=== PATIENT | male | born 1945 | race Caucasian/White ===

== ENCOUNTER → 2018-05-24 14:43 | Outpatient (CLI) | payer MEDICARE, SELFPAY ==
[2018-05-24 19:15] LABS: BUN Creatinine Ratio 22.5 (6-22); Blood Urea Nitrogen 18 mg/dL (9-20); Estimated Glomerular Filt Rate > 60.0 mL/min (>60)
== END ==
PROVIDERS: PCP Internal Medicine; Visit Provider Internal Medicine
DX: I10 Essential (primary) hypertension (principal)
CPT/HCPCS: 36415; 82565; 84520

== ENCOUNTER → 2018-05-25 17:32 | Outpatient (CLI) | payer MEDICARE, SELFPAY ==
--- NOTE | 2018-05-25 | DI.MRI.S_ITS ---
PROCEDURE: MR HEAD/BRAIN WO/W CON INDICATIONS: schwannomatosis TECHNIQUE: Noncontrast axial T1 spin echo, axial T2 fast spin echo, sagittal and axial FLAIR, coronal T2 fast spin echo, axial gradient echo, axial diffusion and ADC through the brain. After the administration of contrast, axial and coronal 3D VIBE or T1 spin echo with fat saturation through the brain. COMPARISON: [facility], MR, BRAIN (IAC) W&WO CONTRAST, 04/29/2016, 12:23. FINDINGS: Image quality: Excellent. CSF Spaces: Basal cisterns are patent. No extra-axial fluid collections. Ventricles are normal in size and shape. Brain: There is a 1.0 x 1.3 x 0.7 cm enhancing mass involving the left internal auditory canal and the left cerebellar pontine angle. No abnormal masses or abnormal postcontrast enhancement identified in the right internal auditory canal or the right cerebellopontine angle. No midline shift. No intracranial bleeds. No abnormal intracranial enhancement. The brainstem appears normal. Diffusion-weighted images demonstrate no acute ischemic insults. No areas of encephalomalacia. No GRE weighted abnormalities of the brain parenchyma. Mild, diffuse prominence of CSF space. Punctate and confluent areas of increased T2 signal noted in the periventricular and subcortical white matter tracts compatible with mild to moderate chronic microvascular ischemic changes. Normal intravascular flow voids are present. Skull and face: Calvarial marrow is normal in signal. Orbits appear normal. Sinuses: Sinuses and mastoids appear clear. IMPRESSION: 1. 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 The lesion is not significantly changed in size and contour compared to 04/29/2016. 2. Mild, diffuse cerebral volume loss. 3. Mild to moderate periventricular and subcortical white matter chronic microvascular ischemic changes. Dictated by: Lou Barahona MD, PhD on 05/26/2018 at 9:56 Approved by: Lou Barahona MD, PhD on 05/26/2018 at 10:08
== END ==
PROVIDERS: PCP Internal Medicine; Visit Provider Internal Medicine
DX: Q85.03 Schwannomatosis (principal)
CPT/HCPCS: 70553; A9579

== ENCOUNTER → 2018-05-30 08:49 | Outpatient (CLI) | payer MEDICARE, SELFPAY ==
[2018-05-30 11:25] LABS: Alanine Aminotransferase 37 IU/L (21-72); Albumin 4.2 g/dL (3.5-5.0); Albumin Globulin Ratio 1.4 (1.0-2.8); Alkaline Phosphatase 65 U/L (38-126); Aspartate Aminotransferase 25 IU/L (17-59); Bilirubin Total 0.8 mg/dL (0.2-1.3); Blood Urea Nitrogen 16 mg/dL (9-20); Calcium 9.1 mg/dL (8.4-10.2); Carbon Dioxide 33 mmol/L (22-32); Chloride 97 mmol/L (98-107); Cholesterol 135 mg/dL (140-199); Estimated Glomerular Filt Rate > 60.0 mL/min (>60); Globulin 2.9 g/dL (1.7-4.1); Glucose 114 mg/dL (80-110); HDL Cholesterol 43 mg/dL (40-60); HEMOLYSIS < 15 (0-50); LDL Cholesterol Calculated 69 mg/dL (<100); Potassium 4.2 mmol/L (3.4-5.1); Sodium 142 mmol/L (137-145); Total Protein 7.1 g/dL (6.3-8.2); Triglycerides 116 mg/dL (35-150)
[2018-05-30 11:51] LABS: Prostate Specific Antigen Scrn 0.277 ng/mL (0.1-4.0)
== END ==
PROVIDERS: PCP Internal Medicine; Visit Provider Internal Medicine
DX: Z00.00 Encounter for general adult medical examination without abnormal findings (principal); R73.01 Impaired fasting glucose; I10 Essential (primary) hypertension; E66.9 Obesity, unspecified
CPT/HCPCS: 36415; 80053; 80061; G0103

== ENCOUNTER → 2019-06-02 12:49 | Outpatient (CLI) | payer MEDICARE, SELFPAY ==
[2019-06-02 13:23] LABS: Add Manual Diff / Slide Review NO; Basophils Absolute Auto 0 /uL (0-100); Basophils Percent Auto 0.3 % (0-2); Eosinophils Absolute Auto 300 /uL (0-450); Eosinophils Percent Auto 2.2 % (2-4); Hematocrit 44.3 % (41-53); Hemoglobin 14.9 g/dL (13.5-17.5); Lymphocytes Absolute Auto 2400 /uL (1100-4500); Lymphocytes Percent Auto 18.5 % (25-40); Mean Corpuscular HGB Conc 33.6 % (30-36); Mean Corpuscular Hemoglobin 29.8 PG (26-34); Mean Corpuscular Volume 88.7 fL (80-100); Monocytes Absolute Auto 1300 /uL (0-900); Monocytes Percent Auto 9.9 % (3-14); Neutrophils Absolute Auto 9000 /uL (1500-7000); Neutrophils Percent Auto 69.1 % (50-75); Platelet Count 336 X10^3/uL (150-400); Red Blood Cell Count 4.99 X10^6/uL (4.5-5.9); Red Cell Distribution Width 13.6 % (11.6-14.8); White Blood Cell Count 13.1 X10^3/uL (4.5-11.0)
[2019-06-02 14:31] LABS: Alanine Aminotransferase 29 IU/L (21-72); Albumin 4.6 g/dL (3.5-5.0); Albumin Globulin Ratio 1.3 (1.0-2.8); Alkaline Phosphatase 65 U/L (38-126); Aspartate Aminotransferase 31 IU/L (17-59); BUN Creatinine Ratio 18.9 (6-22); Bilirubin Total 0.8 mg/dL (0.2-1.3); Blood Urea Nitrogen 17 mg/dL (9-20); Calcium 9.6 mg/dL (8.4-10.2); Carbon Dioxide 35 mmol/L (22-32); Chloride 95 mmol/L (98-107); Estimated Glomerular Filt Rate > 60.0 mL/min (>60); Globulin 3.5 g/dL (1.7-4.1); Glucose 101 mg/dL (80-110); HEMOLYSIS < 15 (0-50); Potassium 4.4 mmol/L (3.4-5.1); Sodium 139 mmol/L (137-145); Total Protein 8.1 g/dL (6.3-8.2)
[2019-06-02 14:42] LABS: TSH w/ Reflex to FT4 1.23 uIU/mL (0.47-4.68)
== END ==
PROVIDERS: PCP Internal Medicine; Visit Provider Internal Medicine
DX: R53.82 Chronic fatigue, unspecified (principal)
CPT/HCPCS: 36415; 80053; 84443; 85025

== ENCOUNTER → 2019-07-20 12:17 | Oncology outpatient (ONC) | payer MEDICARE, SELFPAY ==
[2019-07-05 10:20] VITALS: BP 140/84; PULSE 78; RESP 16; TEMP 36.2; O2SAT 93
--- NOTE | 2019-07-05 10:35 | P.CONONC_ITS ---
History of Present Illness - Data of Consult Consult date: 07/05/19 Primary Care Provider: Randall Russell MD - Consult Narrative Narrative: Diagnosis: Chronic leukocytosis History of present illness: Don Roberts is a 73 year old male who is referred for further evaluation of chronically elevated white count. The patient reports that he has had a slightly high white count that has been present for many years. It has not been causing any symptoms for him. He has not been bothered by a frequent or recurrent infections. He denies any fevers chills or night sweats. He has not noticed any adenopathy. His weight has been stable. No GI complaints. His most recent CBC showed a white count of 13.1 a with primarily neutrophils. There is also slight increase in his monocytes. Hemoglobin was 14.9 hematocrit 44.3 platelets were 336,000. In 2017, his white count had been 12.4. In 2016 it had been 14.0. He does not smoke. He has not had a splenectomy. He has not been on any steroids. His family history is notable for a brother who had a low white count for many years but it has since resolved. There is no family history of other blood dyscrasias. There is no family history of malignancy. Social history: He is retired. He worked in the computer industry and in finance. He does not smoke. He has rare alcohol use. His past medical history is notable for hypertension and elevated cholesterol. He has had prior knee surgery and appendectomy. He does have a history of a an acoustic neuroma that has been followed without any treatment. CC: Maciej Saeed MD Home Medications and Allergies Home Medications Medication Instructions Recorded Confirmed Type amlodipine 5 mg PO BID 07/05/19 07/05/19 History aspirin 81 mg PO DAILY 07/05/19 07/05/19 History atorvastatin 20 mg PO DAILY 07/05/19 07/05/19 History cholecalciferol (vitamin D3) 5,000 unit PO DAILY 07/05/19 07/05/19 History [Vitamin D3] multivitamin tab 07/05/19 History potassium chloride 20 meq PO DAILY 07/05/19 07/05/19 History Allergies Allergy/AdvReac Type Severity Reaction Status Date / Time Penicillins [PENICILLINS] Allergy Unknown RASH Unverified 11/24/17 12:35 Review of Systems - Patient Self-Reported Symptoms SR Skin issues: Skin rash or itching SR Genitourinary issues: Frequent urination Constitutional: normal activity level, no weight loss Ears, nose, mouth, throat: decreased hearing Cardiovascular: no chest pain, no palpitations, no dyspnea on exertion Respiratory: no shortness of breath Gastrointestinal: no change in appetite, no abdominal pain Integumentary: rash, eczema Hematologic/Lymphatic: no anemia, no enlarged lymph nodes Exam Vital signs: Vital Signs Temp Pulse Resp BP Pulse Ox 07/05/19 10:20 97.1 F L 78 16 140/84 93 Intake and Output 07/04/19 07/05/19 07/05/19 23:59 07:59 15:59 Other: Weight 124.3 kg Patient Weight 07/05/19 23:59 Weight 124.3 kg - Constitutional positive no acute distress, positive obese - Routine HEENT Exam Head: Present: normocephalic, atraumatic Eye: Present: EOMI, PERRL. Absent: conjunctival icterus, scleral injection ENT: Present: mucous membranes moist, oropharynx clear, dentition normal - Routine Neck Exam Present: supple. Absent: lymphadenopathy, thyromegaly - Routine Chest/Breast/Axilla Exam Axillae: Absent: lymphadenopathy - Routine Respiratory Exam Present: Clear to auscultation bilaterally. Absent: rales, wheezes - Routine Cardiovascular Exam Present: RRR, S1, S2. Absent: murmur - Routine Abdominal Exam Present: soft, normoactive bowel sounds. Absent: tenderness, organomegaly, mass - Routine Extremities Exam Absent: cyanosis, clubbing, edema - Routine Back/Spine Exam Back/Spine: Absent: vertebral tenderness - Routine Skin Exam Present: rash. Absent: intact, petechiae, ecchymosis Comments: He did have some eczema on his upper extremities. He had seborrheic keratoses on his back. - Routine Neurological Exam Present: alert, oriented X3 - Routine Psychiatric Exam Present: normal affect, normal thought process Assessment and Plan (1) Leukocytosis, unspecified Current visit: Yes Status: Acute 73-year-old man with mild leukocytosis. This has been present for at least 2-3 years. He does not have any symptoms related to this and it does not appear to be progressive. He is not on any medications that are likely to elevate his white count. He does not have a history of splenectomy is not a smoker. It is possible that this could represent chronic phase CML but I think unlikely. It is possible this may just be his usual white count. I think it will be imp ortant to check for bcr/ABL. Will also repeat a CBC today. I do not think that any further investigation is likely to be helpful. He will return to clinic here in about 2 weeks for follow-up.
--- NOTE | 2019-07-10 10:47 | ONC.SCHED ---
No prior auth needed for BCR ABL conf#[id number] spoke with Solomon Coffman did the prior auth call.
[2019-07-20 13:04] LABS: Add Manual Diff / Slide Review NO; Basophils Absolute Auto 0 /uL (0-100); Basophils Percent Auto 0.4 % (0-2); Eosinophils Absolute Auto 300 /uL (0-450); Eosinophils Percent Auto 2.6 % (2-4); Hematocrit 47.5 % (41-53); Hemoglobin 15.9 g/dL (13.5-17.5); Lymphocytes Absolute Auto 2200 /uL (1100-4500); Lymphocytes Percent Auto 17.5 % (25-40); Mean Corpuscular HGB Conc 33.4 % (30-36); Mean Corpuscular Hemoglobin 30.2 PG (26-34); Mean Corpuscular Volume 90.3 fL (80-100); Monocytes Absolute Auto 600 /uL (0-900); Monocytes Percent Auto 5.1 % (3-14); Neutrophils Absolute Auto 9300 /uL (1500-7000); Neutrophils Percent Auto 74.4 % (50-75); Platelet Count 347 X10^3/uL (150-400); Red Blood Cell Count 5.26 X10^6/uL (4.5-5.9); Red Cell Distribution Width 13.3 % (11.6-14.8); White Blood Cell Count 12.5 X10^3/uL (4.5-11.0)
[2019-07-24 12:00] LABS: Specimen Source WHOLE BLOOD EDTA
--- NOTE | 2019-08-01 11:16 | ONC.SCHED ---
Pt. called and asked to reschedule his appt from today because he got called into work for an emergency. He rescheduled for August 23 w/ Christophe.
== END ==
PROVIDERS: PCP Internal Medicine
DX: D72.829 Elevated white blood cell count, unspecified (principal); D33.3 Benign neoplasm of cranial nerves; I10 Essential (primary) hypertension; E78.00 Pure hypercholesterolemia, unspecified
CPT/HCPCS: 36415; 81207; 85025; 99204; 99214

== ENCOUNTER → 2020-05-06 09:18 | Outpatient (CLI) | payer MEDICARE, SELFPAY ==
[2020-05-06 10:17] LABS: Hemoglobin A1C% w Est Avg Glu 7.3 % (4.0-6.0)
[2020-05-06 10:26] LABS: Alanine Aminotransferase 27 IU/L (<50); Albumin 4.1 g/dL (3.5-5.0); Albumin Globulin Ratio 1.2 (1.0-2.8); Alkaline Phosphatase 73 U/L (38-126); Aspartate Aminotransferase 28 IU/L (17-59); BUN Creatinine Ratio 17.9 (6-22); Blood Urea Nitrogen 15 mg/dL (9-20); Calcium 8.9 mg/dL (8.4-10.2); Carbon Dioxide 32 mmol/L (22-32); Chloride 98 mmol/L (98-107); Cholesterol 128 mg/dL (140-199); Estimated Glomerular Filt Rate > 60.0 mL/min (>60); Globulin 3.4 g/dL (1.7-4.1); Glucose 148 mg/dL (80-110); HDL Cholesterol 34 mg/dL (40-60); HEMOLYSIS 17 (0-50); LDL Cholesterol Calculated 71 mg/dL (<100); Potassium 3.7 mmol/L (3.4-5.1); Sodium 139 mmol/L (137-145); Total Protein 7.5 g/dL (6.3-8.2); Triglycerides 115 mg/dL (35-150)
== END ==
PROVIDERS: PCP Internal Medicine; Referring Provider Internal Medicine; Visit Provider Internal Medicine
DX: E11.9 Type 2 diabetes mellitus without complications (principal)
CPT/HCPCS: 36415; 80053; 80061; 83036

== ENCOUNTER → 2021-03-19 11:12 | Outpatient (CLI) | payer MEDICARE, SELFPAY | PROVIDERS: PCP Internal Medicine; Referring Provider Internal Medicine; Visit Provider Internal Medicine | DX: Q85.03 Schwannomatosis (principal); Z53.20 Procedure and treatment not carried out because of patient's decision for unspecified reasons ==

== ENCOUNTER → 2021-11-14 11:11 | Outpatient (CLI) | payer OTHER, SELFPAY ==
[2021-11-14 11:56] LABS: Hemoglobin A1C% w Est Avg Glu 6.9 % (4.0-6.0)
[2021-11-14 11:59] LABS: Alanine Aminotransferase 28 IU/L (<50); Albumin 4.3 g/dL (3.5-5.0); Albumin Globulin Ratio 1.3 (1.0-2.8); Alkaline Phosphatase 68 U/L (38-126); Aspartate Aminotransferase 28 IU/L (17-59); BUN Creatinine Ratio 14.1 (6-22); Blood Urea Nitrogen 12 mg/dL (9-20); Calcium 8.9 mg/dL (8.4-10.2); Carbon Dioxide 33 mmol/L (22-32); Chloride 98 mmol/L (98-107); Cholesterol 123 mg/dL (140-199); Estimated Glomerular Filt Rate > 60.0 mL/min (>60); Globulin 3.2 g/dL (1.7-4.1); Glucose 138 mg/dL (80-110); HDL Cholesterol 38 mg/dL (40-60); HEMOLYSIS < 15 (0-50); LDL Cholesterol Calculated 66 mg/dL (<100); Potassium 3.6 mmol/L (3.4-5.1); Sodium 138 mmol/L (137-145); Total Protein 7.5 g/dL (6.3-8.2); Triglycerides 97 mg/dL (35-150)
[2021-11-14 12:04] LABS: Add Manual Diff / Slide Review NO; Basophils Absolute Auto 100 /uL (0-100); Basophils Percent Auto 0.6 % (0-2); Eosinophils Absolute Auto 200 /uL (0-450); Eosinophils Percent Auto 1.7 % (2-4); Hematocrit 43.9 % (41-53); Lymphocytes Absolute Auto 2300 /uL (1100-4500); Lymphocytes Percent Auto 18.3 % (25-40); Mean Corpuscular HGB Conc 34.2 % (30-36); Mean Corpuscular Hemoglobin 30.1 PG (26-34); Mean Corpuscular Volume 87.9 fL (80-100); Monocytes Absolute Auto 800 /uL (0-900); Monocytes Percent Auto 6.7 % (3-14); Neutrophils Absolute Auto 9100 /uL (1500-7000); Neutrophils Percent Auto 72.7 % (50-75); Platelet Count 294 X10^3/uL (150-400); Red Cell Distribution Width 13.4 % (11.6-14.8); White Blood Cell Count 12.4 X10^3/uL (4.5-11.0)
[2021-11-14 12:38] LABS: TSH w/ Reflex to FT4 0.98 uIU/mL (0.47-4.68)
== END ==
PROVIDERS: PCP Internal Medicine; Referring Provider Internal Medicine; Visit Provider Internal Medicine
DX: E78.2 Mixed hyperlipidemia (principal); E74.39 Other disorders of intestinal carbohydrate absorption; I10 Essential (primary) hypertension
CPT/HCPCS: 36415; 80053; 80061; 83036; 84443; 85025

== ENCOUNTER → 2022-01-08 10:32 | Outpatient (CLI) | payer OTHER, SELFPAY ==
--- NOTE | 2022-01-08 10:33 | DI.US.S_ITS ---
PROCEDURE: US SCROTUM INDICATIONS: Left scrotal mass TECHNIQUE: Real-time scanning was performed of the scrotum and testicles, with image documentation. Color and pulse Doppler interrogation was performed of both testicles. COMPARISON: None. FINDINGS: Right: Testicle is normal in size at 4.6 x 3.0 x 2.7 cm, and homogenous in echotexture. Epididymis is normal in overall size and morphology. Small hydrocele. No varicocele. Overlying scrotal skin is normal in thickness. Left: Testicle is normal in size at 4.7 x 3.5 x 2.7 cm, and homogeneous in echotexture. Epididymis is not well seen. Large complex hydrocele. No varicocele. Overlying scrotal skin is normal in thickness. Doppler: Color and pulse Doppler demonstrate normal and symmetric arterial flow in both testicles. IMPRESSION: 1. Normal appearance of the testicles bilaterally. 2. Large complex left hydrocele which contains internal debris and pyocele cannot be excluded. Recommend clinical correlation and follow-up. 3. Small right hydrocele. Dictated by: Dell Ashton [facility] Interpreted: Justin Archer MD on 01/08/2022 at 12:14 Transcribed by: SERJIO on 01/08/2022 at 12:15 Approved by: Justin Archer M.D. on 01/08/2022 at 16:51
== END ==
PROVIDERS: PCP Internal Medicine; Referring Provider Internal Medicine; Visit Provider Internal Medicine
DX: N43.3 Hydrocele, unspecified (principal)
CPT/HCPCS: 76870

== ENCOUNTER → 2022-03-11 10:56 | Outpatient (CLI) | payer OTHER, SELFPAY ==
[2022-03-11 13:15] LABS: Prostate Specific Antigen 0.303 ng/mL (0.10-4.00)
== END ==
PROVIDERS: PCP Internal Medicine; Referring Provider Specialist; Visit Provider Specialist
DX: R97.20 Elevated prostate specific antigen [PSA] (principal)
CPT/HCPCS: 36415; 84153

== ENCOUNTER → 2022-12-08 10:58 | Outpatient (CLI) | payer OTHER, SELFPAY ==
[2022-12-08 12:52] LABS: Add Manual Diff / Slide Review NO; Basophils Absolute Auto 0 /uL (0-100); Basophils Percent Auto 0.2 % (0-2); Eosinophils Absolute Auto 400 /uL (0-450); Eosinophils Percent Auto 3.2 % (2-4); Hematocrit 43.5 % (41-53); Hemoglobin 14.7 g/dL (13.5-17.5); Lymphocytes Absolute Auto 2500 /uL (1100-4500); Lymphocytes Percent Auto 21.1 % (25-40); Mean Corpuscular HGB Conc 33.8 % (30-36); Mean Corpuscular Volume 88.9 fL (80-100); Monocytes Absolute Auto 900 /uL (0-900); Monocytes Percent Auto 7.5 % (3-14); Neutrophils Absolute Auto 7900 /uL (1500-7000); Platelet Count 297 X10^3/uL (150-400); Red Blood Cell Count 4.89 X10^6/uL (4.5-5.9); Red Cell Distribution Width 13.8 % (11.6-14.8); White Blood Cell Count 11.6 X10^3/uL (4.5-11.0)
[2022-12-08 13:23] LABS: Aspartate Aminotransferase 27 IU/L (17-59); BUN Creatinine Ratio 19.3 (6-22); Blood Urea Nitrogen 17 mg/dL (9-20); Calcium 8.7 mg/dL (8.4-10.2); Carbon Dioxide 34 mmol/L (22-32); Chloride 98 mmol/L (98-107); Cholesterol 216 mg/dL (140-199); Estimated Glomerular Filt Rate > 60 mL/min (>60); Glucose 114 mg/dL (80-110); HDL Cholesterol 41 mg/dL (40-60); HEMOLYSIS < 15 (0-50); LDL Cholesterol Calculated 147 mg/dL (<100); Potassium 3.9 mmol/L (3.4-5.1); Sodium 139 mmol/L (137-145); Triglycerides 138 mg/dL (35-150)
[2022-12-08 15:15] LABS: Creatinine Urine Random 178.9 mg/dL
[2022-12-08 15:22] LABS: Microalbumi Creatinin Ratio Ur 7.8 ug/mg CR (<30); Microalbumin Urine Random 1.4 mg/dL (0-1.6)
[2022-12-08 17:49] LABS: Testosterone 168 ng/dL (71.8-623)
[2022-12-09 07:36] LABS: x Labcorp Estim. Avg Glu (eAG) 143 mg/dL (.); x Labcorp Hemoglobin A1c 6.6 % (4.8-5.6)
== END ==
PROVIDERS: PCP Internal Medicine; Referring Provider Internal Medicine; Visit Provider Internal Medicine
DX: E11.69 Type 2 diabetes mellitus with other specified complication (principal); E78.2 Mixed hyperlipidemia; E78.5 Hyperlipidemia, unspecified; I10 Essential (primary) hypertension; D72.829 Elevated white blood cell count, unspecified; R79.89 Other specified abnormal findings of blood chemistry
CPT/HCPCS: 36415; 80048; 80061; 82043; 82570; 83036; 84403; 84450; 85025

== ENCOUNTER 2023-11-07 15:45 | Emergency (ER) | payer OTHER, SELFPAY ==
[2023-11-07 15:47] VITALS: BP 175/93; PULSE 99; RESP 18; TEMP 36.8; O2SAT 95; BMI 39.9
--- NOTE | 2023-11-07 15:58 | ED_ITS ---
HPI - Epistaxis General Chief complaint: Nasal Problem Stated complaint: Nose Bleed Time Seen by Provider: 11/07/23 15:56 Source: patient Mode of arrival: Ambulatory History of Present Illness HPI Narrative: 78-year-old male with history of hypertension, hyperlipidemia, diabetes presents by private vehicle from home for 1 hour of nosebleed. Patient reports he was washing his face and rubbing his nose when bleeding started. He states that he has had history of nosebleeds 1 year ago that required cautery in the emergency department. Blood began to spontaneously come out of his left nostril and could not be stemmed. He tried to stop the flow with tissue paper in his nose but he continued to bleed and so he decided to come to the emergency department for evaluation. Took several baby aspirin this morning, denies use of other blood thinners. Related Data Home Medications Medication Instructions Recorded Confirmed aspirin 81 mg chewable tablet 81 mg PO DAILY 07/05/19 09/29/23 multivitamin 1 tab PO DAILY 11/12/21 09/29/23 zinc 50 mg tablet 50 mg PO DAILY 11/12/21 09/29/23 mecobalamin (vitamin B12) 5,000 tab PO 07/12/23 09/29/23 mcg disintegrating tablet vitamin E (dl, acetate) 180 mg 180 mg PO DAILY 07/12/23 09/29/23 (400 unit) capsule Previous Rx's Medication Instructions Recorded atorvastatin 20 mg tablet 20 mg PO DAILY #90 tabs 12/23/22 losartan 50 mg tablet 50 mg PO DAILY #90 tabs 07/12/23 alfuzosin 10 mg tablet,extended 10 mg PO DAILY #90 tabs 09/29/23 release 24 hr (Uroxatral) Allergies Allergy/AdvReac Type Severity Reaction Status Date / Time No Known Drug Allergies Allergy Verified 11/07/23 15:47 Review of Systems Review of Systems Narrative: Negative except as noted above Patient History Medical History BPH w urinary obs/LUTS Left hydrocele Hypertension Arthritis Hearing loss Mumps Measles DM type 2 with diabetic dyslipidemia Venous insufficiency Severe obesity (BMI >= 40) Psoriasis Left acoustic neuroma Mixed hyperlipidemia Surgical History History of hydrocelectomy Hx of circumcision Hx of appendectomy Family History Father Hypertension Mother Hypertension Brother Hypertension Social History marital status: Smoking Status: Never smoker alcohol intake: never substance use type: does not use caffeine: Yes Smoking Status: Never smoker Exam Initial Vital Signs Initial Vital Signs: Vital Signs Temperature 98.2 F 11/07/23 15:47 Pulse Rate 99 H 11/07/23 15:47 Respiratory Rate 18 11/07/23 15:47 Blood Pressure 175/93 H 11/07/23 15:47 Pulse Oximetry 95 11/07/23 15:47 Oxygen Delivery Method Room Air 11/07/23 15:47 Const: Awake, alert, no acute distress, nontoxic appearing HEENT: Stigmata of bleeding left nostril, dried blood in right naris Skin: Warm, Dry, intact, no rashes Neuro: AO x3, CN II-XII grossly intact, moves all extremities Course Orders Ordered: Discontinued Medications Oxymetazoline HCl (Oxymetazoline Nasal [place] 30 Ml) 2 sprays NASAL NOW ONE Stop: 11/07/23 15:59 Last Admin: 11/07/23 16:04 Dose: 2 sprays Documented By: MICHEL Silver Nitrate/Potassium Nitrate (Silver Nitrate Stick) 2 each TOP NOW ONE Stop: 11/07/23 15:59 Last Admin: 11/07/23 16:04 Dose: 2 each Documented By: MICHEL Vital Signs Vital signs: Vital Signs - 8 hr 11/07/23 15:47 Temperature 98.2 F Pulse Rate 99 H Respiratory Rate 18 Blood Pressure 175/93 H Pulse Oximetry 95 Oxygen Delivery Method Room Air MDM - Epistaxis Differential Diagnosis Differential diagnosis: Likely nasal bone fracture, anterior epistaxis and posterior epistaxis MDM Narrative Medical decision making narrative: Well-appearing patient with epistaxis. Patient was instructed to thoroughly blow his nose to remove all of the clots and Afrin was instilled into each nostril and clamps applied. After 20 minutes the clamps were removed and there did not appear to be any stigmata of bleeding. Of note, patient was hypertensive on arrival, he states that he usually does not take his medication until nighttime. He states that over the last several weeks he has noticed that his blood pressure has been climbing higher and higher despite being compliant with his medications. Patient takes 50 mg daily of losartan, he was informed that he may increase this to 75 or even 100 mg of losartan for improved blood pressure control. Patient observed for some time to ensure that he has no further bleeding. Patient did not have any further episodes of epistaxis while in the emergency department. At 5:00 p.m. patient stated that he was ready to go. He was noted again to be hypertensive and his evening dose of losartan was given to him. Patient was again counseled on the medication changes that he may make to his blood pressure medication regimen and instructed to follow up with primary care physician. Afrin and nose clamp given to patient at discharge. ED return precautions discussed at bedside. Patient expressed understanding of the plan and is in agreement at this time. All questions answered at the time of discharge. Discharge Plan Departure Patient Disposition: Home Clinical Impression: Epistaxis Hypertension Qualifiers: Hypertension type: unspecified Qualified Code(s): I10 - Essential (primary) hypertension Instructions: DI for Nosebleed Activity Restrictions/Additional Instructions: Use a spray of Afrin tonight before bed and tomorrow after waking up. Do not use Afrin for more than 2 days to prevent dependence on Afrin. Avoid manipulating, touching, blowing your nose for at least the next 24 hours. If your nose begins to bleed use the clamps and Afrin. If this does not improve the bleeding then returned to the emergency department. You told me that your blood pressure has been higher than usual over the last several weeks. I recommend increasing your losartan 50 mg to 100 mg daily. Please follow up with your primary care physician for further management of your blood pressure. Prescriptions: No Action atorvastatin 20 mg tablet 20 mg PO DAILY Qty: 90 3RF mecobalamin (vitamin B12) 5,000 mcg tablet,disintegrating PO vitamin E (dl, acetate) 180 mg (400 unit) capsule 180 mg PO DAILY losartan 50 mg tablet 50 mg PO DAILY Qty: 90 3RF zinc 50 mg tablet 50 mg PO DAILY aspirin 81 mg Tablet,Chewable 81 mg PO DAILY multivitamin Tablet 1 tab PO DAILY alfuzosin [Uroxatral] 10 mg tablet extended release 24 hr 10 mg PO DAILY Qty: 90 3RF Rx Instructions: administer after the same meal each day Referrals: Kevin Islas MD [Primary Care Provider] - Stand Alone Forms: Patient Portal/API
[2023-11-07] MEDS: OXYMETAZOLINE NASAL SPRAY 30 ML 2 SPRAYS NASAL (16:04)
[2023-11-07] MEDS: SILVER NITRATE STICK 2 EACH TOP (16:04)
[2023-11-07 17:34] VITALS: BP 214/87; PULSE 90; RESP 16; O2SAT 97
[2023-11-07 17:35] VITALS: BP 214/87; PULSE 90
[2023-11-07] MEDS: LOSARTAN 50 MG TABLET PO (17:35)
== END 2023-11-07 17:51 | disposition home or self-care (01) ==
PROVIDERS: Emergency Provider Emergency Medicine; PCP Internal Medicine
DX: R04.0 Epistaxis (principal); I10 Essential (primary) hypertension
CPT/HCPCS: 17250; 99283

== ENCOUNTER → 2023-11-24 11:21 | Outpatient (CLI) | payer OTHER, SELFPAY ==
[2023-11-24 13:04] LABS: Aspartate Aminotransferase 21 IU/L (17-59); BUN Creatinine Ratio 15.7 (6-22); Blood Urea Nitrogen 13 mg/dL (9-20); Calcium 9.2 mg/dL (8.4-10.2); Carbon Dioxide 34 mmol/L (22-32); Chloride 101 mmol/L (98-107); Cholesterol 124 mg/dL (140-199); Estimated Glomerular Filt Rate > 60 mL/min (>60); Glucose 130 mg/dL (80-110); HDL Cholesterol 44 mg/dL (40-60); HEMOLYSIS < 15 (0-50); LDL Cholesterol Calculated 58 mg/dL (<100); Potassium 4.1 mmol/L (3.4-5.1); Sodium 140 mmol/L (137-145); Triglycerides 110 mg/dL (35-150)
== END ==
PROVIDERS: PCP Internal Medicine; Referring Provider Internal Medicine; Visit Provider Internal Medicine
DX: E11.69 Type 2 diabetes mellitus with other specified complication (principal); E78.5 Hyperlipidemia, unspecified; I10 Essential (primary) hypertension; E78.2 Mixed hyperlipidemia
CPT/HCPCS: 36415; 80048; 80061; 83036; 84450

== ENCOUNTER → 2023-12-03 11:11 | Outpatient (CLI) | payer OTHER, SELFPAY ==
[2023-12-03 15:29] LABS: Creatinine Urine Random 109.4 mg/dL
[2023-12-03 15:33] LABS: Microalbumi Creatinin Ratio Ur 7.3 ug/mg CR (<30); Microalbumin Urine Random 0.8 mg/dL (0-1.6)
[2023-12-06 20:34] LABS: Fecal Immunochemical Test Positive (Negative)
== END ==
PROVIDERS: PCP Internal Medicine; Referring Provider Internal Medicine; Visit Provider Internal Medicine
DX: E11.69 Type 2 diabetes mellitus with other specified complication (principal); E78.5 Hyperlipidemia, unspecified; I10 Essential (primary) hypertension; E78.2 Mixed hyperlipidemia; Z12.11 Encounter for screening for malignant neoplasm of colon
CPT/HCPCS: 82043; 82274; 82570

== ENCOUNTER 2023-12-10 12:23 | Day surgery (SDC) | payer OTHER, SELFPAY ==
[2023-12-02 14:42] VITALS: BMI 40.5
[2023-12-10] VITALS (7 sets, daily range): BP systolic 115–168; BP diastolic 54–82; PULSE 78–85; RESP 13–19; TEMP 36.2–36.6; O2SAT 91–96; BMI 39.5
--- NOTE | 2023-12-10 | PATH_ITS ---
[facility] Accession Number: [id number] No. of containers..01 Tissue . 01 Material submitted: . body - LEFT HYDROCELE AND SABINO . 01 Diagnosis: LEFT HYDROCELE AND SABINO: 1. Benign mesothelial-lined fibrous tissue consistent with hydrocele. 2. Additional hard tissue fragment consistent with scrotolith on macroscopic examination. 3. No neoplasm identified. [facility] 12/17/2023905 Local . 01 Electronically signed: . Brandon Black MD, Pathologist NPI- [id number] . 01 Gross description: . Received in formalin with two identifiers and left hydrocele and sabino, is a epps semitranslucent membranous soft tissue fragment measuring 6.1 x 4.5 x 0.3 cm with no lesions identified. Also in the container is a epps hard smooth tissue fragment consistent with scrotolith measuring 0.4 x 0.3 x 0.2 cm. Technical Writing Lead/Mgr sections of the membranous soft tissue are submitted in A1. ([id number]) /MRV 12/17/2023905 Local . 01 Pathologist provided ICD-10: N43.3 . 01 CPT . 530393 Specimen Comment: A courtesy copy of this report has been sent to [phone] Performed at: 01 [facility] [address] [place] [address], [id number] MD Brandon Black MD Phone: [phone]
--- NOTE | 2023-12-10 12:58 | PM.PREOP ---
Pre-operative Note Interval Note History & Physical reviewed/Exam performed by Physician: Yes Changes to H&P: No
[2023-12-10] MEDS: LACTATED RINGERS 1,000 ML 21 ML IV (13:19)
[2023-12-10] MEDS: ACETAMINOPHEN IV 1,000 MG/100 ML VIAL 400 MG IV (13:22)
[2023-12-10] MEDS: CEFAZOLIN 2 GM/100 ML PREMIX 100 ML IV (13:35)
--- NOTE | 2023-12-10 13:51 | SUR.OPER ---
Supine on padded OR bed, head on pillow, arms secured on padded arm boards at <90 degrees abduction, legs uncrossed, safety belt at thigh, tape over blanket over lower legs.
[2023-12-10] MEDS: BUPIVACAINE 0.25% (PF) 30 ML, EPINEPHrine 0.15 MG INJ (13:54)
[2023-12-10] MEDS: BUPIVACAINE LIPOSOME 266 MG/20 ML VIAL INJ (13:55)
--- NOTE | 2023-12-10 14:39 | PM.OP.1 ---
Operative Date/Time/Diagnoses Date of procedure: 12/10/23 Time of procedure: 14:30 Pre-op diagnosis: 1. Left hydrocele Post-op diagnosis: same Procedure & Clinicians Procedure: Left hydrocelectomy Same procedure as scheduled: Yes Indications: 1. Left hydrocele. Surgeon: Marcel Uribe Anesthesia Type: General and Local (1.33% Exparel and 0.25% Marcaine with epinephrine.) Operative Notes Findings: 1. Left hydrocele with 2 septations (loculated) with clear, dark straw-colored fluid. 2. 4 mm scrotal lara. 3.= Drained free with volume 150 cc. Closure Type: primary Specimen(s): none sent Applied: drain(s) (Ten Russian Meir drain to bulb self suction.) Estimated Blood Loss (mL): 0 Blood products transfused: none Procedure in detail: The patient was positioned supine administered general anesthesia. The lower abdomen, genitalia, groin were then prepped and draped in sterile fashion. 0.25% Marcaine with epinephrine was then used to infiltrate the skin and subcutaneous tissue of the midline scrotal raphae. A needle-tip cautery pen was then used to create longitudinal midline incision at this site through the layers of the skin and subcutaneous dartos fascia. Appropriate plane was then identified and developed at the surface of the tunica vaginalis. Blunt dissection was then utilized to circumferentially separate the surface of the tunica vaginalis from the inner scrotal wall. The entire structure was then delivered from the left hemiscrotum. The tunica vaginalis was then opened in the midline and septations divided. Fluid within was then drained with volume is specified above. There was adherence of the tunica vaginalis along the entire medial aspect of the tunic albuginea. Therefore the large left leaflet of the tunica vaginalis was divided and excised using the cautery pen. It was submitted to pathology for gross only along with a scrotal lara. There were areas of adherent hemosiderin consistent with previous trauma. The testis and epididymis were then repositioned anatomically within the left hemiscrotum in a secure to the posterior wall with 3-0 Monocryl at the inferior pole of the superior pole. Exparel was then utilized to infiltrate the scrotal wall and skin in the left inferior lateral scrotal wall. A 10 Russian Meir drain was then passed through this site from inside to outside. It was secured to the skin utilizing a 2-0 silk, double arm Matias sandal technique in usual fashion. Excess drain length at the distal end was trimmed appropriately and then positioned within the left hemiscrotal space. The drain was later connected to bulb self suction. Additional Exparel was then utilized to infiltrate the dartos fascia of the scrotal wall and the cutaneous layer. The dartos fascia was then reapproximated using a running 2 0 Monocryl. The skin was reapproximated usin a running horizontal mattress of 4-0 Monocryl. The operative skin site was then cleaned and dried. A generous amount of bacitracin antibiotic ointment was then applied to the incision line and drain site. Dry sterile fluff gauze were then applied to the scrotum and the patient was fitted with an athletic supporter. Next, the patient was awakened, transferred to [facility], and transported to recovery awake and in stable condition. Complications: none Post-operative Condition: stable Disposition: PACU Plan for aftercare: Discharge home.
== END 2023-12-10 15:56 | disposition home or self-care (01) ==
PROVIDERS: PCP Internal Medicine; Referring Provider Specialist; Visit Provider Specialist
CPT/HCPCS: C9290; J0136; J0171; J0690; J2405; J2704; J3010

== ENCOUNTER 2023-12-10 21:07 | Observation (INO) | payer OTHER, SELFPAY ==
[2023-12-10] VITALS (10 sets, daily range): BP systolic 101–154; BP diastolic 57–72; PULSE 85–104; RESP 16–18; TEMP 36.6; O2SAT 92–96; BMI 39.4
--- NOTE | 2023-12-10 21:21 | DI.US.S_ITS ---
PROCEDURE: US SCROTUM INDICATIONS: post op swelling TECHNIQUE: Real-time scanning was performed of the scrotum and testicles, with image documentation. Color and pulse Doppler interrogation was performed of both testicles. COMPARISON: [facility], , US SCROTUM, 01/08/2022, 12:34. FINDINGS: Right: Testicle is normal in size at 5.1 x 2.9 x 2.7 cm, and homogenous in echotexture. Epididymis is not well visualized secondary to adjacent inflammatory changes. Overlying scrotal skin is thickened. Left: Testicle is normal in size at 4.2 x 3.2 x 2.6 cm, and homogeneous in echotexture. There is a large complex heterogeneous collection surrounding the left testicle measuring approximately 12 cm a soft tissue drain is present within the left lateral scrotum which contains approximately 50 mL of bloody material. Causes mass effect of the left testicle. Limited visualization of the left epididymis. Overlying scrotal skin is thickened. Doppler: Color and pulse Doppler demonstrate normal and symmetric arterial flow in both testicles. IMPRESSION: 1. Complex heterogeneous fluid surrounding the left testicle likely representing hematoma/postoperative fluid. A lateral left scrotal soft tissue drain is in place. Of note, there is a small arterial vessel noted just deep to the incision site. 2. There is venous and arterial flow noted in the bilateral testicles. No acute sonographic abnormalities seen in the bilateral testicles. Dictated by: Flako Chou M.D. on 12/10/2023 at 23:20 Approved by: Flako Chou M.D. on 12/10/2023 at 23:27
--- NOTE | 2023-12-10 21:51 | PC.NURSE ---
pt's scrotum, swollen and blue, incision intact and drain in place
--- NOTE | 2023-12-10 21:52 | PC.NURSE ---
feels like his scrotum is swelling, but no decrease in drainage
[2023-12-10 22:04] LABS: Add Manual Diff / Slide Review NO; Basophils Absolute Auto 0 /uL (0-100); Eosinophils Absolute Auto 0 /uL (0-450); Hematocrit 40.6 % (41-53); Hemoglobin 13.4 g/dL (13.5-17.5); Lymphocytes Absolute Auto 600 /uL (1100-4500); Lymphocytes Percent Auto 3.9 % (25-40); Mean Corpuscular Hemoglobin 29.6 PG (26-34); Mean Corpuscular Volume 89.8 fL (80-100); Monocytes Absolute Auto 300 /uL (0-900); Monocytes Percent Auto 2.3 % (3-14); Neutrophils Absolute Auto 13900 /uL (1500-7000); Neutrophils Percent Auto 93.8 % (50-75); Platelet Count 283 X10^3/uL (150-400); Red Blood Cell Count 4.52 X10^6/uL (4.5-5.9); Red Cell Distribution Width 13.9 % (11.6-14.8); White Blood Cell Count 14.8 X10^3/uL (4.5-11.0)
[2023-12-10 22:27] LABS: Alanine Aminotransferase 23 IU/L (<50); Albumin 4.3 g/dL (3.5-5.0); Albumin Globulin Ratio 1.7 (1.0-2.8); Alkaline Phosphatase 59 U/L (38-126); Aspartate Aminotransferase 27 IU/L (17-59); BUN Creatinine Ratio 16.5 (6-22); Bilirubin Total 0.8 mg/dL (0.2-1.3); Blood Urea Nitrogen 20 mg/dL (9-20); Calcium 8.7 mg/dL (8.4-10.2); Carbon Dioxide 29 mmol/L (22-32); Chloride 99 mmol/L (98-107); Estimated Glomerular Filt Rate > 60 mL/min (>60); Globulin 2.6 g/dL (1.7-4.1); Glucose 275 mg/dL (80-110); HEMOLYSIS < 15 (0-50); Potassium 3.9 mmol/L (3.4-5.1); Sodium 135 mmol/L (137-145); Total Protein 6.9 g/dL (6.3-8.2)
--- NOTE | 2023-12-10 22:43 | ED.MALEGU ---
HPI - Male Genitourinary General Chief complaint: Urogenital-Male Stated complaint: post surg/hydroseal/thinks clot in drain bag Time Seen by Provider: 12/10/23 21:21 Source: patient Mode of arrival: Ambulatory History of Present Illness HPI Narrative: Patient is a 78-year-old male history of hypertension hyperlipidemia, diabetes, left hydrocele who had a hydrocelectomy with Dr. Uribe earlier this afternoon presenting today with excessive scrotal swelling. He reports that he has a RUT drain in as well which is also feeling with blood. He says the swelling was not nearly this bad immediately postoperative. He has a difficult time urinating although he still is able to urinate. No fever not on anticoagulation Related Data Home Medications Medication Instructions Recorded Confirmed aspirin 81 mg chewable tablet 81 mg PO DAILY 07/05/19 12/11/23 multivitamin 1 tab PO DAILY 11/12/21 12/11/23 mecobalamin (vitamin B12) 5,000 1 tab PO DAILY 07/12/23 12/11/23 mcg disintegrating tablet vitamin E (dl, acetate) 180 mg 180 mg PO DAILY 07/12/23 12/11/23 (400 unit) capsule Previous Rx's Medication Instructions Recorded atorvastatin 20 mg tablet 20 mg PO DAILY #90 tabs 12/23/22 losartan 50 mg tablet 50 mg PO DAILY #90 tabs 07/12/23 alfuzosin 10 mg tablet,extended 10 mg PO DAILY #90 tabs 09/29/23 release 24 hr (Uroxatral) amlodipine 5 mg tablet 5 mg PO BID #180 tabs 11/24/23 oxycodone 5 mg tablet 5 mg PO Q4H PRN pain #14 tabs 12/10/23 Allergies Allergy/AdvReac Type Severity Reaction Status Date / Time No Known Drug Allergies Allergy Verified 12/10/23 21:28 Patient History Medical History (Updated 12/11/23 @ 00:56 by Britney Barros DO) Positive FIT (fecal immunochemical test) BPH w urinary obs/LUTS Left hydrocele Arthritis Hearing loss Mumps Measles DM type 2 with diabetic dyslipidemia Venous insufficiency Severe obesity (BMI >= 40) Psoriasis Left acoustic neuroma Mixed hyperlipidemia Surgical History History of hydrocelectomy Hx of circumcision Hx of appendectomy Family History Father Hypertension Mother Hypertension Brother Hypertension Social History marital status: household members: none Smoking Status: Never smoker alcohol intake: current substance use type: does not use caffeine: Yes Smoking Status: Never smoker alcohol intake frequency: holidays/special occasions only Substance Use Type: does not use Exam Initial Vital Signs Initial Vital Signs: Vital Signs Temperature 97.8 F 12/10/23 21:15 Pulse Rate 103 H 12/10/23 21:15 Respiratory Rate 16 12/10/23 21:15 Blood Pressure 101/57 L 12/10/23 21:15 Pulse Oximetry 96 12/10/23 21:15 Oxygen Delivery Method Room Air 12/10/23 21:15 GENERAL: Alert pleasant 78 year male CARDIOVASCULAR: peripheral pulses in tact, cap refill <2 sec RESPIRATORY: No respiratory distress, speaks in full sentences without difficulty ABDOMEN: Soft, nontender, no guarding or rebound : Significant scrotal swelling unable to identify penis incision site with abram oozing with abram RUT drain in place with gross blood between 40 and 50 mL. EXTREMITIES: Normal range of motion, no clubbing or edema. Neurovascularly intact NEUROLOGICAL: Cranial nerves II through XII grossly intact. Normal gait and speech. SKIN: Warm, dry, no petechiae, no rashes or lesions. Course Orders Ordered: ED Orders 12/10/23 21:21 US scrotum Stat 12/10/23 21:49 CBC Auto Diff [Complete Blood Count AUTO DIFF] Stat CMP [Comprehensive Metabolic Panel] Stat 12/11/23 01:16 Hemoglobin and Hematocrit Stat Sodium Chloride (Sodium Chloride 0.9% Flush) 10 ml IV BID JULIO Last Admin: 12/10/23 23:10 Dose: Not Given Documented By: ABEBA Sodium Chloride (Sodium Chloride 0.9% Flush) 10 ml IV PRN PRN PRN Reason: Flush Discontinued Medications Hydrocodone Bitart/Acetaminophen (Hydrocodone/Acet 5/325 Tablet) 1 tab PO NOW ONE Stop: 12/10/23 23:55 Last Admin: 12/10/23 23:57 Dose: 1 tab Documented By: ABEBA Hydrocodone Bitart/Acetaminophen (Hydrocodone/Acet 5/325 Prepack) 1 bottle MISC DIRECTED ONE Stop: 12/11/23 00:50 Last Admin: 12/11/23 02:00 Dose: Not Given Documented By: ABEBA Sodium Chloride (Normal Saline 0.9%) 1,000 mls @ 1,000 mls/hr IV BOLUS ONE Stop: 12/11/23 02:17 Last Admin: 12/11/23 01:48 Dose: Not Given Documented By: ABEBA Sodium Chloride (Normal Saline 0.9%) 1,000 mls @ 1,000 mls/hr IV BOLUS ONE Stop: 12/11/23 02:39 Last Infusion: 12/11/23 03:04 Dose: Infused Documented By: Admin: 12/11/23 01:47 Dose: 1,000 mls/hr Documented By: ABEBA Vital Signs Vital signs: Vital Signs - 8 hr 12/10/23 21:15 12/10/23 21:19 12/10/23 21:30 Temperature 97.8 F Pulse Rate 103 H 104 H 99 H Respiratory Rate 16 Blood Pressure 101/57 L Pulse Oximetry 96 96 95 Oxygen Delivery Method Room Air 12/10/23 21:31 12/10/23 21:31 12/10/23 22:00 Temperature Pulse Rate 102 H 92 H Respiratory Rate 18 Blood Pressure 107/58 L Pulse Oximetry 95 94 Oxygen Delivery Method 12/10/23 22:30 12/10/23 22:42 12/10/23 22:42 Temperature Pulse Rate 93 H 92 H Respiratory Rate Blood Pressure 132/70 Pulse Oximetry 95 96 Oxygen Delivery Method 12/10/23 23:00 12/10/23 23:00 12/10/23 23:30 Temperature Pulse Rate 87 85 Respiratory Rate 18 Blood Pressure 148/72 H Pulse Oximetry 93 92 Oxygen Delivery Method 12/10/23 23:31 12/10/23 23:31 12/11/23 00:00 Temperature Pulse Rate 87 84 Respiratory Rate Blood Pressure 154/69 H Pulse Oximetry 93 96 Oxygen Delivery Method 12/11/23 00:01 12/11/23 00:01 12/11/23 00:30 Temperature Pulse Rate 85 82 Respiratory Rate Blood Pressure 164/79 H Pulse Oximetry 94 93 Oxygen Delivery Method 12/11/23 00:31 12/11/23 00:31 12/11/23 01:10 Temperature Pulse Rate 83 Respiratory Rate 18 Blood Pressure 145/67 H 71/38 L Pulse Oximetry 93 Oxygen Delivery Method 12/11/23 01:15 12/11/23 01:20 12/11/23 01:25 Temperature Pulse Rate 81 Respiratory Rate 18 Blood Pressure 68/29 L 147/70 H Pulse Oximetry 96 Oxygen Delivery Method Room Air 12/11/23 01:30 12/11/23 01:31 12/11/23 01:31 Temperature Pulse Rate 79 79 Respiratory Rate Blood Pressure 121/57 L Pulse Oximetry 93 92 Oxygen Delivery Method 12/11/23 02:00 12/11/23 02:00 12/11/23 02:30 Temperature Pulse Rate 83 76 Respiratory Rate Blood Pressure 121/58 L Pulse Oximetry 95 95 Oxygen Delivery Method 12/11/23 02:31 12/11/23 02:31 Temperature Pulse Rate 76 Respiratory Rate Blood Pressure 105/51 L Pulse Oximetry 95 Oxygen Delivery Method MDM - Male Genitourinary Lab Data 12/11/23 01:16 12/10/23 21:49 Labs: Lab Results 12/10/23 12/11/23 Range/Units 21:49 01:16 WBC 14.8 H (4.5-11.0) X10^3/uL RBC 4.52 (4.5-5.9) X10^6/uL Hgb 13.4 L 12.9 L (13.5-17.5) g/dL Hct 40.6 L 38.7 L (41-53) % MCV 89.8 (80-100) fL MCH 29.6 (26-34) PG MCHC 33.0 (30-36) % RDW 13.9 (11.6-14.8) % Plt Count 283 (150-400) X10^3/uL Neut % (Auto) 93.8 H (50-75) % Lymph % (Auto) 3.9 L (25-40) % [place] % (Auto) 2.3 L (3-14) % Eos % (Auto) 0.0 L (2-4) % Baso % (Auto) 0.0 (0-2) % Neut # (Auto) 50974 H (0473-0357) /uL Lymph # (Auto) 600 L (4161-5874) /uL [place] # (Auto) 300 (0-900) /uL Eos # (Auto) 0 (0-450) /uL Baso # (Auto) 0 (0-100) /uL Sodium 135 L (137-145) mmol/L Potassium 3.9 (3.4-5.1) mmol/L Chloride 99 (98-107) mmol/L Carbon Dioxide 29 (22-32) mmol/L BUN 20 (9-20) mg/dL Creatinine 1.21 (0.66-1.25) mg/dL Estimated GFR > 60 (>60) mL/min BUN/Creatinine Ratio 16.5 (6-22) Glucose 275 H (80-110) mg/dL Calcium 8.7 (8.4-10.2) mg/dL Total Bilirubin 0.8 (0.2-1.3) mg/dL AST 27 (17-59) IU/L ALT 23 (<50) IU/L Alkaline Phosphatase 59 (38-126) U/L Total Protein 6.9 (6.3-8.2) g/dL Albumin 4.3 (3.5-5.0) g/dL Globulin 2.6 (1.7-4.1) g/dL Albumin/Globulin Ratio 1.7 (1.0-2.8) Imaging Data US scrotum : Radiologist's Impression: PROCEDURE: US SCROTUM INDICATIONS: post op swelling TECHNIQUE: Real-time scanning was performed of the scrotum and testicles, with image documentation. Color and pulse Doppler interrogation was performed of both testicles. COMPARISON: [facility], , US SCROTUM, 01/08/2022, 12:34. FINDINGS: Right: Testicle is normal in size at 5.1 x 2.9 x 2.7 cm, and homogenous in echotexture. Epididymis is not well visualized secondary to adjacent inflammatory changes. Overlying scrotal skin is thickened. Left: Testicle is normal in size at 4.2 x 3.2 x 2.6 cm, and homogeneous in echotexture. There is a large complex heterogeneous collection surrounding the left testicle measuring approximately 12 cm a soft tissue drain is present within the left lateral scrotum which contains approximately 50 mL of bloody material. Causes mass effect of the left testicle. Limited visualization of the left epididymis. Overlying scrotal skin is thickened. Doppler: Color and pulse Doppler demonstrate normal and symmetric arterial flow in both testicles. IMPRESSION: 1. Complex heterogeneous fluid surrounding the left testicle likely representing hematoma/postoperative fluid. A lateral left scrotal soft tissue drain is in place. Of note, there is a small arterial vessel noted just deep to the incision site. 2. There is venous and arterial flow noted in the bilateral testicles. No acute sonographic abnormalities seen in the bilateral testicles. Dictated by: Flako Chou M.D. on 12/10/2023 at 23:20 MDM Narrative Medical decision making narrative: Patient 78-year-old male presents today with significant postoperative hematoma and swelling. He has gross blood out of the RUT drain. Ultrasound reports arterial vessel noted under the incision site concern for active bleeding. RUT drain over 3 hours is now at 50 mL seems to be he increasing but slow. An ice pack is placed. Blood work is overall reassuring no significant drop in hemoglobin which is now 13.[address] Uribe updated on patient's symptoms test results waiting official radiology read of the ultrasound however preliminary tech report reports significant clot burden concern for arterial blood flow underneath the incision site. Reports that patient has 2 options to have blood evacuated which is not emergent or let bleeding tamponade itself 00:30 Dr. Villaseñor was reconsulted in regards to official radiology report. Patient also wishes clot burden removed. He states he will follow up with patient on Wednesday recommends ice elevation and conservative measures Long discussion with patient in regards to get Dr. Uribe recommendations which is conservative management that bleeding will stop. Patient is given strict return precautions return to the ER. He is concerned because his pain medication was sent to [place] which is not open this weekend. Sitting up on the side of the bed he had been sitting there for awhile starting to feel little lightheaded blood pressure sitting up 7138. He did receive [place] but it was prior to midnight so over an hour prior. He got diaphoretic sweaty passed out and blood pressure dropped 68/29. Once he was lying down blood pressure improved he improved. Repeat H&H does show slight drop in hemoglobin now 12.9. 0155 Dr. Uribe re-contacted reports of syncopal episode repeat H&H agrees with admission to the hospitalist. He is happy to consult and see patient in the morning to discuss options. Keep NPO Dr. Robles accepts patient Critical Care Time Critical Care Time Critical Care Time: Yes Total Critical Care Time: 42 Attestation: The high probability of a clinically significant, sudden or life threatening deterioration of the [cardiovascular] system(s) required my full and direct attention, intervention and personal management. The aggregate critical care time was 42 minutes. This time is in addition to time spent performing reported procedures but includes the following: [x] Data Review and interpretation [x] Patient assessment and monitoring of vital signs [x] Documentation [x] Medication orders and management Discharge Plan Departure Patient Disposition: Admitted as Observation Clinical Impression: Postoperative hematoma Admit Date/Time: 12/11/23 02:35 Admit Provider: Jd Tenorio
--- NOTE | 2023-12-10 23:06 | PC.NURSE ---
ice pack applied to scrotal area
[2023-12-10] MEDS: HYDROCODONE/ACET 5/325 TABLET 1 TAB PO (23:57)
[2023-12-11] VITALS (29 sets, daily range): BP systolic 68–164; BP diastolic 29–84; PULSE 73–103; RESP 13–29; TEMP 36.2–37; O2SAT 90–97; BMI 40.7
[2023-12-11 01:27] LABS: Hematocrit 38.7 % (41-53); Hemoglobin 12.9 g/dL (13.5-17.5)
--- NOTE | 2023-12-11 01:31 | PC.NURSE ---
pt was sitting on the side of the stretcher BP 71/38 in room to recheck bp while pt continued to sit on side of stretcher, pt became pale and appeared to be going to pass out, instructed pt to lay back on the stretcher, pt laid back on the stretcher, and was diaphoretic, Dr Barros called to room, pt's bp was 68/29 with decreased responsiveness, after about 5 minutes of lying supine pt's BP increased to 147/70 and pt became more responsive and alert, skin now warm and dry, IVF hung to infuse and 2nd IV started
[2023-12-11] MEDS: SODIUM CHLORIDE 0.9% 1,000 ML 1000 ML IV (01:47)
--- NOTE | 2023-12-11 03:04 | PC.NURSE ---
pt states he last voided just prior to coming to the ED between [id number] states he does not feel the urge to void at present, lower abd is soft and non-tender
--- NOTE | 2023-12-11 03:33 | PC.NURSE ---
admission skin assessment Photos
[2023-12-11] MEDS: SODIUM CHLORIDE 0.9% FLUSH 10 ML IV ×2 (04:47→20:38)
[2023-12-11] MEDS: SODIUM CHLORIDE 0.9% 1,000 ML 100 ML IV (04:47)
--- NOTE | 2023-12-11 05:17 | PC.ADMIT ---
[email or web address] Admission Note: The patient,Don Roberts,78 y/o, was given written information regarding hospital policies, unit procedures and contact persons. Patient's smoking status: Never smoker. Vital Signs - 8 hr 12/10/23 21:19 12/10/23 21:30 12/10/23 21:31 Temperature Pulse Rate 104 H 99 H Respiratory Rate Blood Pressure 107/58 L Pulse Oximetry 96 95 Oxygen Delivery Method Oxygen Flow Rate 12/10/23 21:31 12/10/23 22:00 12/10/23 22:30 Temperature Pulse Rate 102 H 92 H 93 H Respiratory Rate 18 Blood Pressure Pulse Oximetry 95 94 95 Oxygen Delivery Method Oxygen Flow Rate 12/10/23 22:42 12/10/23 22:42 12/10/23 23:00 Temperature Pulse Rate 92 H 87 Respiratory Rate Blood Pressure 132/70 Pulse Oximetry 96 93 Oxygen Delivery Method Oxygen Flow Rate 12/10/23 23:00 12/10/23 23:30 12/10/23 23:31 Temperature Pulse Rate 85 Respiratory Rate 18 Blood Pressure 148/72 H 154/69 H Pulse Oximetry 92 Oxygen Delivery Method Oxygen Flow Rate 12/10/23 23:31 12/11/23 00:00 12/11/23 00:01 Temperature Pulse Rate 87 84 Respiratory Rate Blood Pressure 164/79 H Pulse Oximetry 93 96 Oxygen Delivery Method Oxygen Flow Rate 12/11/23 00:01 12/11/23 00:30 12/11/23 00:31 Temperature Pulse Rate 85 82 Respiratory Rate Blood Pressure 145/67 H Pulse Oximetry 94 93 Oxygen Delivery Method Oxygen Flow Rate 12/11/23 00:31 12/11/23 01:10 12/11/23 01:15 Temperature Pulse Rate 83 Respiratory Rate 18 Blood Pressure 71/38 L 68/29 L Pulse Oximetry 93 Oxygen Delivery Method Oxygen Flow Rate 12/11/23 01:20 12/11/23 01:25 12/11/23 01:30 Temperature Pulse Rate 81 79 Respiratory Rate 18 Blood Pressure 147/70 H Pulse Oximetry 96 93 Oxygen Delivery Method Room Air Oxygen Flow Rate 12/11/23 01:31 12/11/23 01:31 12/11/23 02:00 Temperature Pulse Rate 79 83 Respiratory Rate Blood Pressure 121/57 L Pulse Oximetry 92 95 Oxygen Delivery Method Oxygen Flow Rate 12/11/23 02:00 12/11/23 02:30 12/11/23 02:31 Temperature Pulse Rate 76 76 Respiratory Rate Blood Pressure 121/58 L Pulse Oximetry 95 95 Oxygen Delivery Method Oxygen Flow Rate 12/11/23 02:31 12/11/23 03:00 12/11/23 03:02 Temperature Pulse Rate 77 Respiratory Rate Blood Pressure 105/51 L 108/54 L Pulse Oximetry 94 Oxygen Delivery Method Oxygen Flow Rate 12/11/23 03:02 12/11/23 03:30 12/11/23 04:29 Temperature 97.2 F L Pulse Rate 82 82 Respiratory Rate 18 Blood Pressure 155/69 H Pulse Oximetry 97 96 Oxygen Delivery Method Room Air Oxygen Flow Rate 0 Patient admitted to room 206 per stretcher from ER and transferred into bed using slider board. Is alert and oriented. Breath sounds CTA with RA sat of 96%. HRR. BP elevated at 155/69. Denies nausea. BT present and abdomen is soft. Last voided around 1999 and bladder scan showing only 191cc. Scrotum is swollen and unable to visualize penis. Oozing blood from incision site. [place] ate intact. RUT is intact and compressed. Has ice to scrotum. States pain is only 1-2/10 and feels like pinching at lower edge of incision. Has psoriasis on back, buttocks and chest. Is able to turn himself in bed. Instructed to have assistance if needing to get out of bed; verbalizes understanding. Visited with tele MD and educated on plan of care including being NPO for possible surgery later today. Bilateral calf SCD's were applied. Fall risk score is moderate but bed alarm not activated at this time. Oriented to call light and bed controls.
--- NOTE | 2023-12-11 05:28 | P.HP_ITS ---
History of Present Illness History of Present Illness Date Patient Seen: 12/11/23 Time Patient Seen: 02:00 Chief complaint: post surg/hydroseal/thinks clot in drain bag Narrative: 78 y/o with PMH of Lt hydrocele that got bigger and required excision, presented to ED with scrotal swelling and pain, hours after he had that procedure. On exam with scrotal hematoma. At one point in the ED had likely vagal reaction with near syncope. Admitted as NPO for possible urology procedure if the scrotal bleeding continues. [facility] Medical History Positive FIT (fecal immunochemical test) BPH w urinary obs/LUTS Left hydrocele Arthritis Hearing loss Mumps Measles DM type 2 with diabetic dyslipidemia Venous insufficiency Severe obesity (BMI >= 40) Psoriasis Left acoustic neuroma Mixed hyperlipidemia Surgical History History of hydrocelectomy Hx of circumcision Hx of appendectomy Family History Father Hypertension Mother Hypertension Brother Hypertension Social History marital status: household members: none Smoking Status: Never smoker alcohol intake: current substance use type: does not use caffeine: Yes Meds Home Medications and Allergies Home Medications Medication Instructions Recorded Confirmed Type aspirin 81 mg chewable tablet 81 mg PO DAILY 07/05/19 12/11/23 History multivitamin 1 tab PO DAILY 11/12/21 12/11/23 History atorvastatin 20 mg tablet 20 mg PO DAILY #90 tabs 12/23/22 12/11/23 Rx losartan 50 mg tablet 50 mg PO DAILY #90 tabs 07/12/23 12/11/23 Rx mecobalamin (vitamin B12) 5,000 1 tab PO DAILY 07/12/23 12/11/23 History mcg disintegrating tablet vitamin E (dl, acetate) 180 mg 180 mg PO DAILY 07/12/23 12/11/23 History (400 unit) capsule alfuzosin 10 mg tablet,extended 10 mg PO DAILY #90 tabs 09/29/23 12/11/23 Rx release 24 hr (Uroxatral) amlodipine 5 mg tablet 5 mg PO BID #180 tabs 11/24/23 12/11/23 Rx oxycodone 5 mg tablet 5 mg PO Q4H PRN pain #14 tabs 12/10/23 12/11/23 Rx Allergies Allergy/AdvReac Type Severity Reaction Status Date / Time No Known Drug Allergies Allergy Verified 12/10/23 21:28 Review of Systems Constitutional Comments: w/o chills, fever or sweats Cardiovascular Comments: w/o palpitations or chest pain Respiratory Comments: w/o cough or shortness of breath Gastrointestinal Comments: w/o abdominal pain Genitourinary Comments: see HPI w/o hematuria Hematologic/Lymphatic Comments: w/o history of easy bruising or prolonged bleeding in the past Exam Vital Signs (past 8 hours): - 12/10/23 21:30 12/10/23 21:31 12/10/23 21:31 Temperature Pulse Rate 99 H 102 H Respiratory Rate Blood Pressure 107/58 L Pulse Oximetry 95 95 Oxygen Delivery Method Oxygen Flow Rate 12/10/23 22:00 12/10/23 22:30 12/10/23 22:42 Temperature Pulse Rate 92 H 93 H 92 H Respiratory Rate 18 Blood Pressure Pulse Oximetry 94 95 96 Oxygen Delivery Method Oxygen Flow Rate 12/10/23 22:42 12/10/23 23:00 12/10/23 23:00 Temperature Pulse Rate 87 Respiratory Rate 18 Blood Pressure 132/70 148/72 H Pulse Oximetry 93 Oxygen Delivery Method Oxygen Flow Rate 12/10/23 23:30 12/10/23 23:31 12/10/23 23:31 Temperature Pulse Rate 85 87 Respiratory Rate Blood Pressure 154/69 H Pulse Oximetry 92 93 Oxygen Delivery Method Oxygen Flow Rate 12/11/23 00:00 12/11/23 00:01 12/11/23 00:01 Temperature Pulse Rate 84 85 Respiratory Rate Blood Pressure 164/79 H Pulse Oximetry 96 94 Oxygen Delivery Method Oxygen Flow Rate 12/11/23 00:30 12/11/23 00:31 12/11/23 00:31 Temperature Pulse Rate 82 83 Respiratory Rate 18 Blood Pressure 145/67 H Pulse Oximetry 93 93 Oxygen Delivery Method Oxygen Flow Rate 12/11/23 01:10 12/11/23 01:15 12/11/23 01:20 Temperature Pulse Rate Respiratory Rate Blood Pressure 71/38 L 68/29 L 147/70 H Pulse Oximetry Oxygen Delivery Method Oxygen Flow Rate 12/11/23 01:25 12/11/23 01:30 12/11/23 01:31 Temperature Pulse Rate 81 79 79 Respiratory Rate 18 Blood Pressure Pulse Oximetry 96 93 92 Oxygen Delivery Method Room Air Oxygen Flow Rate 12/11/23 01:31 12/11/23 02:00 12/11/23 02:00 Temperature Pulse Rate 83 Respiratory Rate Blood Pressure 121/57 L 121/58 L Pulse Oximetry 95 Oxygen Delivery Method Oxygen Flow Rate 12/11/23 02:30 12/11/23 02:31 12/11/23 02:31 Temperature Pulse Rate 76 76 Respiratory Rate Blood Pressure 105/51 L Pulse Oximetry 95 95 Oxygen Delivery Method Oxygen Flow Rate 12/11/23 03:00 12/11/23 03:02 12/11/23 03:02 Temperature Pulse Rate 77 82 Respiratory Rate Blood Pressure 108/54 L Pulse Oximetry 94 97 Oxygen Delivery Method Oxygen Flow Rate 12/11/23 03:30 12/11/23 04:29 Temperature 97.2 F L Pulse Rate 82 Respiratory Rate 18 Blood Pressure 155/69 H Pulse Oximetry 96 Oxygen Delivery Method Room Air Oxygen Flow Rate 0 Oxygen Delivery Method Room Air Oxygen Flow Rate 0 Const Other: Appears comfortable, laying in bed HENMT Other: normocephalic Resp Other: normal respiratory effort Cardio Other: RRR Other: Swollen and tender scotal hematoma Psych Other: appropriate mood Objective Labs 12/11/23 01:16 12/10/23 21:49 Labs: Laboratory Results - last 24 hr 12/10/23 12/11/23 21:49 01:16 WBC 14.8 H RBC 4.52 Hgb 13.4 L 12.9 L Hct 40.6 L 38.7 L MCV 89.8 MCH 29.6 MCHC 33.0 RDW 13.9 Plt Count 283 Neut % (Auto) 93.8 H Lymph % (Auto) 3.9 L [place] % (Auto) 2.3 L Eos % (Auto) 0.0 L Baso % (Auto) 0.0 Neut # (Auto) 15641 H Lymph # (Auto) 600 L [place] # (Auto) 300 Eos # (Auto) 0 Baso # (Auto) 0 Sodium 135 L Potassium 3.9 Chloride 99 Carbon Dioxide 29 BUN 20 Creatinine 1.21 Estimated GFR > 60 BUN/Creatinine Ratio 16.5 Glucose 275 H Calcium 8.7 Total Bilirubin 0.8 AST 27 ALT 23 Alkaline Phosphatase 59 Total Protein 6.9 Albumin 4.3 Globulin 2.6 Albumin/Globulin Ratio 1.7 Assessment & Plan Assessment and plan (1) Postoperative hematoma: Status: Acute (2) BPH w urinary obs/LUTS: Status: Acute (3) DM type 2 with diabetic dyslipidemia: Status: Acute (4) Essential hypertension: Status: Acute Assessment & Plan narrative: 1. Postop Scrotal Hematoma - monitored CBC - NPO for possible OR with urology to stop the bleed 2. Enlarged Prostate - afluzosin on hold 3. HTN - Norvasc and Losartan on hold 4. HLD - statin on hold 5. DM - SS DVT prophylaxis - SCDs
[2023-12-11 06:52] LABS: Add Manual Diff / Slide Review NO; Basophils Absolute Auto 0 /uL (0-100); Basophils Percent Auto 0.2 % (0-2); Eosinophils Absolute Auto 0 /uL (0-450); Hematocrit 33.8 % (41-53); Hemoglobin 11.4 g/dL (13.5-17.5); Lymphocytes Absolute Auto 1200 /uL (1100-4500); Lymphocytes Percent Auto 7.3 % (25-40); Mean Corpuscular HGB Conc 33.8 % (30-36); Mean Corpuscular Volume 88.6 fL (80-100); Monocytes Absolute Auto 1000 /uL (0-900); Neutrophils Absolute Auto 14500 /uL (1500-7000); Neutrophils Percent Auto 86.5 % (50-75); Platelet Count 260 X10^3/uL (150-400); Red Blood Cell Count 3.82 X10^6/uL (4.5-5.9); Red Cell Distribution Width 13.5 % (11.6-14.8); White Blood Cell Count 16.7 X10^3/uL (4.5-11.0)
[2023-12-11 07:13] LABS: BUN Creatinine Ratio 21.5 (6-22); Blood Urea Nitrogen 20 mg/dL (9-20); Calcium 8.2 mg/dL (8.4-10.2); Carbon Dioxide 29 mmol/L (22-32); Chloride 104 mmol/L (98-107); Estimated Glomerular Filt Rate > 60 mL/min (>60); Glucose 146 mg/dL (80-110); HEMOLYSIS < 15 (0-50); Sodium 136 mmol/L (137-145)
[2023-12-11 07:15] LABS: Hemoglobin A1C% w Est Avg Glu 6.7 % (4.0-6.0)
--- NOTE | 2023-12-11 07:29 | PM.HP.1 ---
History of Present Illness History of Present Illness Date Patient Seen: 12/11/23 Chief complaint: post surg/hydroseal/thinks clot in drain bag Narrative: From Night Doctor: 78 y/o with PMH of Lt hydrocele that got bigger and required excision, presented to ED with scrotal swelling and pain, hours after he had that procedure. On exam with scrotal hematoma. At one point in the ED had likely vagal reaction with near syncope. Admitted as NPO for possible urology procedure if the scrotal bleeding continues. Dr Uribe notoified. The patient underwent surgery yesterday which was uncomplicated with really no blood loss issues. He then returned with a very large scrotal hematoma and scrotal swelling. The patient denies any pain. He does not take blood thinners. The patient has a lot of swelling around the penis which is inverted. He has not urinated since last night but denies a feeling of having to urinate. Spoke with Dr. Uribe this morning, he is coming into likely taken back to the OR to evacuate hematoma and explore for any evidence of ongoing bleeding. The patient will likely need a catheter placed at the same time. [facility], LATER [facility] Medical History Positive FIT (fecal immunochemical test) BPH w urinary obs/LUTS Left hydrocele Arthritis Hearing loss Mumps Measles DM type 2 with diabetic dyslipidemia Venous insufficiency Severe obesity (BMI >= 40) Psoriasis Left acoustic neuroma Mixed hyperlipidemia Surgical History History of hydrocelectomy Hx of circumcision Hx of appendectomy Family History Father Hypertension Mother Hypertension Brother Hypertension Social History marital status: household members: none Smoking Status: Never smoker alcohol intake: current substance use type: does not use caffeine: Yes Meds Home Medications and Allergies Home Medications Medication Instructions Recorded Confirmed Type aspirin 81 mg chewable tablet 81 mg PO DAILY 07/05/19 12/11/23 History multivitamin 1 tab PO DAILY 11/12/21 12/11/23 History atorvastatin 20 mg tablet 20 mg PO DAILY #90 tabs 12/23/22 12/11/23 Rx losartan 50 mg tablet 50 mg PO DAILY #90 tabs 07/12/23 12/11/23 Rx mecobalamin (vitamin B12) 5,000 1 tab PO DAILY 07/12/23 12/11/23 History mcg disintegrating tablet vitamin E (dl, acetate) 180 mg 180 mg PO DAILY 07/12/23 12/11/23 History (400 unit) capsule alfuzosin 10 mg tablet,extended 10 mg PO DAILY #90 tabs 09/29/23 12/11/23 Rx release 24 hr (Uroxatral) amlodipine 5 mg tablet 5 mg PO BID #180 tabs 11/24/23 12/11/23 Rx oxycodone 5 mg tablet 5 mg PO Q4H PRN pain #14 tabs 12/10/23 12/11/23 Rx Allergies Allergy/AdvReac Type Severity Reaction Status Date / Time No Known Drug Allergies Allergy Verified 12/10/23 21:28 Review of Systems Review of Systems Narrative: All else reviewed and otherwise unremarkable except as noted in the history and physical. Exam Vital Signs (past 8 hours): - 12/10/23 23:30 12/10/23 23:31 12/10/23 23:31 Temperature Pulse Rate 85 87 Respiratory Rate Blood Pressure 154/69 H Pulse Oximetry 92 93 Oxygen Delivery Method Oxygen Flow Rate 12/11/23 00:00 12/11/23 00:01 12/11/23 00:01 Temperature Pulse Rate 84 85 Respiratory Rate Blood Pressure 164/79 H Pulse Oximetry 96 94 Oxygen Delivery Method Oxygen Flow Rate 12/11/23 00:30 12/11/23 00:31 12/11/23 00:31 Temperature Pulse Rate 82 83 Respiratory Rate 18 Blood Pressure 145/67 H Pulse Oximetry 93 93 Oxygen Delivery Method Oxygen Flow Rate 12/11/23 01:10 12/11/23 01:15 12/11/23 01:20 Temperature Pulse Rate Respiratory Rate Blood Pressure 71/38 L 68/29 L 147/70 H Pulse Oximetry Oxygen Delivery Method Oxygen Flow Rate 12/11/23 01:25 12/11/23 01:30 12/11/23 01:31 Temperature Pulse Rate 81 79 79 Respiratory Rate 18 Blood Pressure Pulse Oximetry 96 93 92 Oxygen Delivery Method Room Air Oxygen Flow Rate 12/11/23 01:31 12/11/23 02:00 12/11/23 02:00 Temperature Pulse Rate 83 Respiratory Rate Blood Pressure 121/57 L 121/58 L Pulse Oximetry 95 Oxygen Delivery Method Oxygen Flow Rate 12/11/23 02:30 12/11/23 02:31 12/11/23 02:31 Temperature Pulse Rate 76 76 Respiratory Rate Blood Pressure 105/51 L Pulse Oximetry 95 95 Oxygen Delivery Method Oxygen Flow Rate 12/11/23 03:00 12/11/23 03:02 12/11/23 03:02 Temperature Pulse Rate 77 82 Respiratory Rate Blood Pressure 108/54 L Pulse Oximetry 94 97 Oxygen Delivery Method Oxygen Flow Rate 12/11/23 03:30 12/11/23 04:29 Temperature 97.2 F L Pulse Rate 82 Respiratory Rate 18 Blood Pressure 155/69 H Pulse Oximetry 96 Oxygen Delivery Method Room Air Oxygen Flow Rate 0 Oxygen Delivery Method Room Air Oxygen Flow Rate 0 Narrative Exam Narrative: NAD, alert and oriented, fluent speech, calm. Normocephalic skull, EOMI, anicteric sclera, symmetric pupils. Oropharynx unremarkable, no droop. Neck supple, midline trachea, no adenopathy. Lungs clear, normal rate and effort. Heart regular, no murmur gallop or rub. Abdomen is soft, non distended and non tender. Extremities are free of edema. Skin is free of rash or lesions. Joints are not swollen or deformed. Judgment appears to be normal. Very large amount of scrotal swelling with presumed hematoma and ecchymosis of the scrotum. Penis is inverted. The made as is not visible. Objective Imaging Scrotal US: Radiologist's impression: 1. Complex heterogeneous fluid surrounding the left testicle likely representing hematoma/postoperative fluid. A lateral left scrotal soft tissue drain is in place. Of note, there is a small arterial vessel noted just deep to the incision site. 2. There is venous and arterial flow noted in the bilateral testicles. No acute sonographic abnormalities seen in the bilateral testicles. Labs 12/11/23 06:30 12/11/23 06:30 Labs: Laboratory Results - last 24 hr 12/10/23 12/11/23 12/11/23 21:49 01:16 06:30 WBC 14.8 H RBC 4.52 Hgb 13.4 L 12.9 L Hct 40.6 L 38.7 L MCV 89.8 MCH 29.6 MCHC 33.0 RDW 13.9 Plt Count 283 Neut % (Auto) 93.8 H Lymph % (Auto) 3.9 L [place] % (Auto) 2.3 L Eos % (Auto) 0.0 L Baso % (Auto) 0.0 Neut # (Auto) 93500 H Lymph # (Auto) 600 L [place] # (Auto) 300 Eos # (Auto) 0 Baso # (Auto) 0 Sodium 135 L 136 L Potassium 3.9 4.0 Chloride 99 104 Carbon Dioxide 29 29 BUN 20 20 Creatinine 1.21 0.93 Estimated GFR > 60 > 60 BUN/Creatinine Ratio 16.5 21.5 Glucose 275 H 146 H D Hemoglobin A1c 6.7 H Calcium 8.7 8.2 L Total Bilirubin 0.8 AST 27 ALT 23 Alkaline Phosphatase 59 Total Protein 6.9 Albumin 4.3 Globulin 2.6 Albumin/Globulin Ratio 1.7 Assessment & Plan Assessment & Plan narrative: 1. Postop Scrotal Hematoma, present on admission and active. - NPO -discussed with Urology, he will be taken back to the ER for exploration and evacuation of hematoma. 2. Enlarged Prostate , present on admission and active. - afluzosin on hold 3. HTN, present on admission and active. - Norvasc and Losartan on hold 4. HLD, present on admission and active. - statin on hold 5. DM, present on admission and active. - SS Admitted observation status. Time Spent With Patient Time with patient: 30 to 49 minutes with 50% spent counseling/coordinating care Quality MIPS - Admit The patient?s Advance Care plan is not present because I confirmed today that the patient does not wish or was not able to name a surrogate decision maker or provide an Advance Care Plan.: Yes MIPS - Meds 'Current medications' to include all prescriptions, [id number] products, herbals, cannabis/cannabidiol products, and vitamin/mineral/dietary (nutritional) supplements. I have utilized all available resources to obtain, update, or review the patient?s current medications. [If Yes, STOP here]: Yes
[2023-12-11] MEDS: HYDROMORPHONE 0.5 MG INJ IV (08:27)
--- NOTE | 2023-12-11 11:19 | PM.PREOP ---
Pre-operative Note Interval Note History & Physical reviewed/Exam performed by Physician: Yes Changes to H&P: No
--- NOTE | 2023-12-11 11:20 | PM.HP.1 ---
History of Present Illness History of Present Illness Date Patient Seen: 12/11/23 Time Patient Seen: 10:50 Date of Onset of Symptoms: 12/10/23 Chief complaint: post surg/hydroseal/thinks clot in drain bag Narrative: Arvind is a 78-year-old male status post initially uncomplicated left hydrocelectomy on 12/10/2023. He states that he had been sitting upright at home several hours postoperatively, without complaints of pain or swelling. He then made effort to stand up from the sitting position and noted increasing pressure and ecchymosis of his left scrotum. He would accumulated rather quickly and he presented to [facility] ED for evaluation. Ultrasound imaging was consistent with postoperative, acute bleed, within the scrotal wall, rather than accumulation within the space between the testis and scrotal wall. Communication with Dr. Barros in the ED several times ensued. My clinical impression and recommendation with findings of hematocele within the layers of the dartos fascia would be observation and supportive measures. While still in the ED the patient had been sitting upright on the exam table for a period of time in upon standing, got lightheaded and collapsed. Vital signs were consistent with vasovagal response. Further discussion led to opinion to admit the patient for observation. [facility] Medical History (Updated 12/11/23 @ 11:31 by Marcel Uribe MD) Postoperative hemorrhage Male hematocele Positive FIT (fecal immunochemical test) BPH w urinary obs/LUTS Left hydrocele Arthritis Hearing loss Mumps Measles DM type 2 with diabetic dyslipidemia Venous insufficiency Severe obesity (BMI >= 40) Psoriasis Left acoustic neuroma Mixed hyperlipidemia Surgical History History of hydrocelectomy Hx of circumcision Hx of appendectomy Family History Father Hypertension Mother Hypertension Brother Hypertension Social History marital status: household members: none Smoking Status: Never smoker alcohol intake: current substance use type: does not use caffeine: Yes Meds Home Medications and Allergies Home Medications Medication Instructions Recorded Confirmed Type aspirin 81 mg chewable tablet 81 mg PO DAILY 07/05/19 12/11/23 History multivitamin 1 tab PO DAILY 11/12/21 12/11/23 History atorvastatin 20 mg tablet 20 mg PO DAILY #90 tabs 12/23/22 12/11/23 Rx losartan 50 mg tablet 50 mg PO DAILY #90 tabs 07/12/23 12/11/23 Rx mecobalamin (vitamin B12) 5,000 1 tab PO DAILY 07/12/23 12/11/23 History mcg disintegrating tablet vitamin E (dl, acetate) 180 mg 180 mg PO DAILY 07/12/23 12/11/23 History (400 unit) capsule alfuzosin 10 mg tablet,extended 10 mg PO DAILY #90 tabs 09/29/23 12/11/23 Rx release 24 hr (Uroxatral) amlodipine 5 mg tablet 5 mg PO BID #180 tabs 11/24/23 12/11/23 Rx oxycodone 5 mg tablet 5 mg PO Q4H PRN pain #14 tabs 12/10/23 12/11/23 Rx Allergies Allergy/AdvReac Type Severity Reaction Status Date / Time No Known Drug Allergies Allergy Verified 12/10/23 21:28 Review of Systems Review of Systems ROS: Yes All systems reviewed with the patient and are negative except as otherwise documented Exam Vital Signs (past 8 hours): - 12/11/23 03:30 12/11/23 04:29 Temperature 97.2 F L Pulse Rate 82 Respiratory Rate 18 Blood Pressure 155/69 H Pulse Oximetry 96 Oxygen Delivery Method Room Air Oxygen Flow Rate 0 Oxygen Delivery Method Room Air Oxygen Flow Rate 0 Narrative Exam Narrative: The patient is lying supine in bed and in no acute distress. Head/neck-sclera clear pupils are equal and round bilaterally. Chest-equal and unlabored expansion bilaterally. Heart-normal sinus rhythm. Genitalia-the anterior and left scrotal wall are grossly ecchymotic. The incision is intact with a small amount of serosanguineous drainage. The drain is intact and with stripping there is a small amount of serosanguineous fluid. The left hemiscrotum is firm and more superiorly ballotable. No warmth or significant tenderness. Objective Labs 12/11/23 06:30 12/11/23 06:30 Labs: Laboratory Results - last 24 hr 12/10/23 12/11/23 12/11/23 21:49 01:16 06:30 WBC 14.8 H 16.7 H RBC 4.52 3.82 L Hgb 13.4 L 12.9 L 11.4 L Hct 40.6 L 38.7 L 33.8 L MCV 89.8 88.6 MCH 29.6 30.0 MCHC 33.0 33.8 RDW 13.9 13.5 Plt Count 283 260 Neut % (Auto) 93.8 H 86.5 H Lymph % (Auto) 3.9 L 7.3 L [place] % (Auto) 2.3 L 6.0 Eos % (Auto) 0.0 L 0.0 L Baso % (Auto) 0.0 0.2 Neut # (Auto) 97586 H 62278 H Lymph # (Auto) 600 L 1200 [place] # (Auto) 300 1000 H Eos # (Auto) 0 0 Baso # (Auto) 0 0 Sodium 135 L 136 L Potassium 3.9 4.0 Chloride 99 104 Carbon Dioxide 29 29 BUN 20 20 Creatinine 1.21 0.93 Estimated GFR > 60 > 60 BUN/Creatinine Ratio 16.5 21.5 Glucose 275 H 146 H D Hemoglobin A1c 6.7 H Calcium 8.7 8.2 L Total Bilirubin 0.8 AST 27 ALT 23 Alkaline Phosphatase 59 Total Protein 6.9 Albumin 4.3 Globulin 2.6 Albumin/Globulin Ratio 1.7 Assessment & Plan Assessment and plan (1) Male hematocele: Status: Acute (2) Postoperative hemorrhage: Qualifiers: Surgical complication system/body Area: subcutaneous tissue Procedure type: non-dermatologic Qualified Code(s): L76.22 - Postprocedural hemorrhage of skin and subcutaneous tissue following other procedure Status: Acute Plan 1. Discussion and informed consent for LEFT SCROTAL EXPLORATION/CLOT EVACUATION. Discussed finding, impression, and options. I again reiterated preferred option of observation and supportive measures. We discussed intervention for clot evacuation. I explained that rarely if ever is the source of bleeding found due to tamponade effect of the initial bleed. Further explained that, at least by ultrasonographic findings at appears that the hemorrhage has infiltrated within the layers of the dartos fascia which may limit ability to remove all retained blood products. On balance, space occupying situation has rendered his penis nearly in accessible and will impact on the patient's ability to conduct directed voiding. All in all, and on balance, the patient request proceed to scrotal exploration and clot evacuation. The common side effects, possible complications including continued recurrent bleeding, infection, protracted resolution of ecchymosis and scrotal wall blood products were explained. Reasonable expectations of postoperative limitations/restrictions as well as outcomes and recovery explained. The patient indicates a desire to proceed as
[2023-12-11] MEDS: LACTATED RINGERS 1,000 ML 42 ML IV (11:59)
--- NOTE | 2023-12-11 12:41 | SUR.OPER ---
Supine on padded OR bed, head on pillow, arms secured on padded arm boards at <90 degrees abduction, legs uncrossed, safety belt at thighs.
[2023-12-11] MEDS: BUPIVACAINE LIPOSOME 266 MG/20 ML VIAL INJ (12:46)
[2023-12-11] MEDS: SODIUM CHLORIDE IRRIG SOLUTION 1,000 ML 1000 ML IRR (12:51)
[2023-12-11] MEDS: BUPIVACAINE 0.25% (PF) 30 ML, EPINEPHrine 0.15 MG INJ (12:53)
--- NOTE | 2023-12-11 13:29 | CM.DANOTE ---
Initial DCP Assessment Visit Note Reviewed EMR and team rounds for status updates. Pt had already been taken to surgery at the time of this DROSS PULLER assessment visit. Pt resides independently in his own apartment in [place]. It's unclear at this time who will be transporting him home once he's medically cleared for d/c. Payor: Ashleigh Cool. Attending: Dr. Montano Pt is a 78 year-old M who just had a hydrocelectomy yesterday, was discharged home with no concerns. Several hours later he returned to the ED due to severe pressure and swelling in his left-testicle (operative side), he fainted in the ED when attempting to stand up. Urology was consulted and the decision was made to place pt in an OBS bed and discuss next steps (today) with Dr. Araujo. Decision was made to take pt back to the OR for L-scrotal exploration/clot evaluation. DCP will continue to follow and assist with any evolving needs/recommendations for home d/c. Discharge Planning/Care Management CM Discharge Assessment Start: 12/11/23 13:18 Freq: Status: Active Protocol: Document 12/11/23 13:19 DPL (Rec: 12/11/23 13:26 DPL [id number]) Discharge Planning Assessment Assigned Gimp Tacker MAICO Ray Advance Directives? Yes Advance Directives on File Yes History Provided By Medical Record Expected Length of Stay 2 Has Patient been admitted in last 30 No days? Comment Pt just had OP surgery on 12/09 here at for hydrocelectomy . Prior Living Arrangements Apartment/Condo Household Members none Type of transporation used prior to Drives own vehicle admit Independent with ADL's Yes Is patient alert and oriented? Yes Caregiver for Another No Comment No identified d/c needs at this time. Barriers to Discharge No Discharge Plan Home Transportation Arrangement Not yet identified, although he does have a local friend listed in contacts. Referrals Initiated None needed Whiteboard Updated in Patient Room with Yes name and ext. # of Gimp Tacker Review Status In Process Please Provide Date Initial DC 12/11/23 Assessment Was Performed
--- NOTE | 2023-12-11 13:43 | P.OP_ITS ---
Operative Date/Time/Diagnoses Date of procedure: 12/11/23 Time of procedure: 13:35 Pre-op diagnosis: 1. Acute postoperative hematocele. 2. Status post left hydrocelectomy 12/10/2023. Post-op diagnosis: same Procedure & Clinicians Procedure: 1. Left scrotal exploration. 2. Clot evacuation/irrigation. Same procedure as scheduled: Yes Indications: 1. Large left postoperative hematocele. Surgeon: Marcel Uribe Click Yes if Unassisted: Yes Anesthesia Type: General and Local (0.25% Marcaine plus epinephrine and 1.33% Exparel) Operative Notes Findings: 1. A proximally 500 cc of gelatinous, maroon clot evacuated within the scrotal space. 2. Additional on measurable blood product within dartos fascia and subcutaneous plane. Closure Type: primary Specimen(s): none sent Applied: drain(s) (Fifteen [place] Meir drain to bulb self suction.) Estimated Blood Loss (mL): 5 Procedure in detail: The patient was positioned in supine and the lower abdomen, genitalia, and groin were then prepped and draped in sterile fashion following removal of the non functioning operative drain. Local anesthetic was then used to infiltrate the skin and subcutaneous tissue transversely over the left superior hemiscrotum over a 4-5 cm length. The needle-tip cautery was then used to create a incision through the cutaneous layer and centrally through the dartos fascia. The hematocele was then entered using a hemostatic clamp. The dartos fascia opening was enlarged to accommodate the index finger. The clot was then disrupted with gentle digital in circumferential manipulation. Gentle pressure was applied in combination with these maneuvers to extrude the above described clot volume. Now, the Danyell syringe was utilized to instill in irrigate the space, combined with further digital explanation and manipulation, and suctioning repetitively for a total volume of 500 cc. The same sequence of steps was then conducted using a sterile saline solution containing 500 mg of gentamicin. A 15 [place] Meir drain was then positioned through the previous exit drain site. The distal end was trimmed to an appropriate length and was positioned within the left hemiscrotal space. The drain was then secured at the skin level using a double-arm Matias sandal technique with 2-0 silk in usual fashion. The dartos fascia was then reapproximated with running 2-0 Monocryl. Intervening layer using 3-0 Monocryl was utilized. Finally, the skin was reapproximated using a running horizontal mattress of 4-0 Monocryl. The skin surfaces were cleaned and dried and bacitracin antibiotic ointment was applied to the operative incisions and the drain site. Dry sterile fluffs were then applied to the scrotum in the patient was fitted with net underwear. The patient was then awakened, transferred to [facility], and then transported recovery in stable condition. Complications: none Post-operative Condition: stable Disposition: PACU Plan for aftercare: 1. Observation and possible discharge today after transfer to acute care. 2. Criteria for discharge is toleration of diet resumption in adequate operative pain control with oral narcotic analgesics if necessary. 3. Patient is to contact the urology clinic each morning beginning 12/13/2023 to report running 12 hour drain output. 4. The patient has been instructed a discharge yesterday, and as this morning that he is to lie recumbent, in a recliner, elevate his scrotum with a rolled hand towel and apply ice Q 15 minutes times 24-48 hours. 5. The patient has been instructed at discharge yesterday, and this morning to apply provided antibiotic ointment to incision lines and drain site as needed to keep greasy x2 weeks.
[2023-12-11] MEDS: LACTATED RINGERS 1,000 ML 125 ML IV (18:37)
[2023-12-11] MEDS: AMLODIPINE 5 MG TABLET PO (20:37)
[2023-12-11] MEDS: ATORVASTATIN 20 MG TABLET PO (20:37)
--- NOTE | 2023-12-11 21:09 | PC.NURSE ---
Patient up in hallway walking with this nurse. States at end of walk that he is feeling some slight chest discomfort/pressure, is noted to be diaphoretic and belching, as well as some slight SOB. Message sent to hospitalist on for NOC shift informing of new symptoms.
[2023-12-11 22:09] LABS: Troponin I < 0.012 ng/mL (0.01-0.034)
[2023-12-11] MEDS: MAG HYDROX/ALUMINUM/SIMETH SUS 20 ML, LIDOCAINE VISCOUS 2% 15 ML PO (22:32)
--- NOTE | 2023-12-11 23:48 | PC.NURSE ---
Patient is alert and oriented. [place] in left ear related to history of neuroma. Breath sounds CTA with RA sat of 96% but did desat when going to sleep so placed on oxygen at 2L/min per NC to keep sat > 92%; is on continuous oximetry. HRR but is now on telemetry due to earlier episode of chest pressure/discomfort following ambulation in mccrary with telemetry reading of SR. Denies nausea. BT hypoactive but is passing flatus. Has been voiding per urinal with some hematuria. Scrotum remains swollen but much improved and now appears ecchymotic. Incision still oozing blood so is wearing an underpants with ABD pad over. Meir drain intact with sanguinous fluid. Wearing bilateral calf SCD's. Denied pain. Fall risk score is moderate but calls appropriately so alarm is not in use at this time.
[2023-12-12 00:25] VITALS: BP 115/61; PULSE 88; RESP 17; TEMP 35.8; O2SAT 97
[2023-12-12] MEDS: LACTATED RINGERS 1,000 ML 125 ML IV ×2 (02:22→10:38)
[2023-12-12 09:00] VITALS: BP 131/66; PULSE 85
[2023-12-12] MEDS: LOSARTAN 50 MG TABLET PO (09:00)
[2023-12-12] MEDS: ASPIRIN 81 MG CHEW TAB PO (09:00)
[2023-12-12] MEDS: AMLODIPINE 5 MG TABLET PO (09:03)
[2023-12-12] MEDS: MULTIVITAMIN 1 TABLET 1 TAB PO (09:03)
[2023-12-12] MEDS: SODIUM CHLORIDE 0.9% FLUSH 10 ML IV (09:05)
[2023-12-12] MEDS: CYANOCOBALAMIN (VITAMIN B-12) 500 MCG TABLET 5000 MCG PO (09:11)
[2023-12-12 10:05] VITALS: BP 131/66; PULSE 85; RESP 16; TEMP 36.7; O2SAT 97
--- NOTE | 2023-12-12 11:24 | P.DS_ITS ---
History of Present Illness History of Present Illness Chief complaint: post surg/hydroseal/thinks clot in drain bag Narrative: From Night Doctor: 78 y/o with PMH of Lt hydrocele that got bigger and required excision, presented to ED with scrotal swelling and pain, hours after he had that procedure. On exam with scrotal hematoma. At one point in the ED had likely vagal reaction with near syncope. Admitted as NPO for possible urology procedure if the scrotal bleeding continues. Dr Uribe notoified. The patient underwent surgery yesterday which was uncomplicated with really no blood loss issues. He then returned with a very large scrotal hematoma and scrotal swelling. The patient denies any pain. He does not take blood thinners. The patient has a lot of swelling around the penis which is inverted. He has not urinated since last night but denies a feeling of having to urinate. Spoke with Dr. Uribe this morning, he is coming into likely taken back to the OR to evacuate hematoma and explore for any evidence of ongoing bleeding. The patient will likely need a catheter placed at the same time. Discharge Providers Provider Date of admission: 12/11/23 02:35 Discharge Date: 12/12/23 Primary care physician: Kevin Islas MD Consults: 12/11/23 19:44 Consult to Race Car Driver Routine Comment: Lives alone,May need RN for wound checks Discharge provider: Santosh Menjivar MD Summary Hospital Course Discharge Diagnosis: 1. Postop Scrotal Hematoma, present on admission and active. 2. Enlarged Prostate , present on admission and active. 3. HTN, present on admission and active. 4. HLD, present on admission and active. 5. DM, present on admission and active. Hospital Course: The patient was admitted with evidence of a scrotal hematoma. He was taken to the operating room for evacuation of hematoma and verification of no further bleeding on December 10. The patient was improved but did have a fair amount of ecchymosis over the scrotum on the day of discharge, as expected. Discharge plans were discussed with Urology in the day of discharge and he will call Dr. Uribe is office on Wednesday for further instructions. He will also call if he is having difficulties urinating. He is otherwise stable was able to ambulate without difficulty. Status at Discharge Cognitive/behavioral status at discharge: oriented Functional status at discharge: independent ambulation Overall status at discharge: patient is back to baseline Time Spent with Patient Time spent: Greater than 30 minutes Exam Vital Signs (past 8 hours): - 12/12/23 09:00 12/12/23 10:05 Temperature 98.0 F Pulse Rate 85 85 Respiratory Rate 16 Blood Pressure 131/66 131/66 Pulse Oximetry 97 Oxygen Delivery Method Room Air Oxygen Flow Rate 2 Narrative Exam Narrative: NAD, alert and oriented. Fluent speech. Lungs are clear, normal rate and effort. Heart is regular, no murmur gallop or rub. Abdomen is soft, non distended. Extremities are free of edema. Scrotum is less swollen, there is ecchymosis over the entire scrotum. Objective Imaging Scrotal US: Radiologist's impression: 1. Complex heterogeneous fluid surrounding the left testicle likely representing hematoma/postoperative fluid. A lateral left scrotal soft tissue drain is in place. Of note, there is a small arterial vessel noted just deep to the incision site. 2. There is venous and arterial flow noted in the bilateral testicles. No acute sonographic abnormalities seen in the bilateral testicles. 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 Positive FIT (fecal immunochemical test) BPH w urinary obs/LUTS Left hydrocele Arthritis Hearing loss Mumps Measles DM type 2 with diabetic dyslipidemia Venous insufficiency Severe obesity (BMI >= 40) Psoriasis Left acoustic neuroma Mixed hyperlipidemia Surgical History History of hydrocelectomy Hx of circumcision Hx of appendectomy Family History Father Hypertension Mother Hypertension Brother Hypertension Social History marital status: household members: none Smoking Status: Never smoker alcohol intake: current substance use type: does not use caffeine: Yes Discharge Assessment & Plan Assessment and Plan Assessment: 1. Postop Scrotal Hematoma, present on admission and active. 2. Enlarged Prostate , present on admission and active. 3. HTN, present on admission and active. 4. HLD, present on admission and active. 5. DM, present on admission and active. Plan of Treatment: Discharge home, elevation of scrotum, no change in medications, follow up with Dr. Uribe by phone on Wednesday morning. Dr. Uribe is notified of the discharge. Discharge Plan Discharge Plan Patient Disposition: Home Provider Discharge Comment: Stable for discharge, we will follow up with Dr. Uribe outpatient in 1-2 days. Discharge orders & Medications Prescriptions: Continued atorvastatin 20 mg tablet 20 mg PO DAILY Qty: 90 3RF mecobalamin (vitamin B12) 5,000 mcg tablet,disintegrating 1 tab PO DAILY vitamin E (dl, acetate) 180 mg (400 unit) capsule 180 mg PO DAILY losartan 50 mg tablet 50 mg PO DAILY Qty: 90 3RF amlodipine 5 mg tablet 5 mg PO BID Qty: 180 3RF oxycodone 5 mg tablet 5 mg PO Q4H PRN (Reason: pain) Qty: 14 0RF aspirin 81 mg Tablet,Chewable 81 mg PO DAILY multivitamin Tablet 1 tab PO DAILY alfuzosin [Uroxatral] 10 mg tablet extended release 24 hr 10 mg PO DAILY Qty: 90 3RF Rx Instructions: administer after the same meal each day Follow up/Referrals: Kevin Islas MD [Primary Care Provider] - Discharge Health Status Multidrug resistant organism: No MDRO Diet/Activity/Treatments Diet: Regular Skin/Wound/Dressing Care Report to your healthcare provider any signs of infection, such as:: chills, fever, increased pain and unusual drainage Visit Report/Discharge Packet Stand Alone Forms: Patient Portal/API Discharge Data Primary Care Provider: Kevin Islas V Attending Provider: Jd Tenorio Admit Date/Time: 12/11/23 02:35
--- NOTE | 2023-12-12 12:50 | CM.DPC ---
DCP Discharge Home Per MD, pt is medically stable to d/c home today and has plans to f/u with Urologist Dr. Uribe by phone tomorrow to confirm swelling is decreasing and to f/u regarding rehman and urination. No identified barriers to discharge. Per RN, pt has been ambulating halls with staff independently and no concerns noted. Plan: Patient to discharge home today via POV and outpt f/u with Urology tomorrow. No further SW needs at this time. Rosio Pitts MSW
--- NOTE | 2023-12-12 13:08 | PC.NURSE ---
Pt a&o offers no overt c/o pain or other issues. Up to BR with SBA. IV sites intact. Up in mccrary with RN tolerated well. Discussed d/c with Dr. Menjivar see notes.
--- NOTE | 2023-12-12 15:02 | PC.NURSE ---
Patient d/c note: Patient teaching done at bedside. Patient to d/c with drain intact, teaching on how to properly drain and compress unit for proper drainage. Patient was sent home with a extra pair of disposable briefs and some ABD pads. Patient states understanding of d/c instructions and drain care. Aware to follow up with provider in 1-2 days. IV's and tele removed, patient sparkle. well. Patient leaves today in stable condition, VSS. Wheeled down to ER entrance via wheelchair to private vehicle, friend driving patient.
== END 2023-12-12 15:00 | disposition home or self-care (01) ==
LOC: ED 12-11 02:01 → AC 12-11 02:35
PROVIDERS: Specialist; Admitting Provider Internal Medicine; Emergency Provider Emergency Medicine; PCP Internal Medicine; Referring Provider Emergency Medicine; Visit Provider Internal Medicine
PROC: (CPT 54700; principal; 2023-12-11 12:00)
DX: L76.22 Postprocedural hemorrhage of skin and subcutaneous tissue following other procedure (principal); N43.3 Hydrocele, unspecified; N50.1 Vascular disorders of male genital organs; N40.1 Benign prostatic hyperplasia with lower urinary tract symptoms; N13.8 Other obstructive and reflux uropathy; E78.5 Hyperlipidemia, unspecified; I10 Essential (primary) hypertension; E11.69 Type 2 diabetes mellitus with other specified complication; N50.89 Other specified disorders of the male genital organs
CPT/HCPCS: 55040; 54700; 36415; 76870; 80048; 80053; 82962; 83036; 84484; 85014; 85018; 85025; 93005; 93975; 99284; G0378; C9290; J0136; J0171; J0690; J1100; J1170; J1650; J2405; J2704; J3010

== ENCOUNTER 2023-12-14 10:29 | Inpatient (IN) | payer OTHER, SELFPAY ==
[2023-12-11 03:39] VITALS: BMI 40.7
[2023-12-14] VITALS (109 sets, daily range): BP systolic 93–158; BP diastolic 52–96; PULSE 72–162; RESP 8–43; TEMP 36.6–37; O2SAT 86–97; BMI 39.1
--- NOTE | 2023-12-14 10:48 | ED_ITS ---
HPI - General Adult General Chief complaint: Urogenital-Male Stated complaint: weakness/nausea Time Seen by Provider: 12/14/23 10:38 Source: patient, RN notes reviewed and old records reviewed Mode of arrival: EMS Limitations: no limitations History of Present Illness HPI narrative: This is a 78-year-old male history of hypertension, dyslipidemia who is not on any daily anticoagulation who presents with complaint of diaphoresis, lightheadedness and tachycardia patient had a hydrocele surgery earlier this month on the 10 December returned with quite a bit of bleeding in the scrotum was admitted and taken to the OR. He was then discharged home on 12/[address]. Patient states no fevers he is aware of but has been sweaty. He denies any syncope but has been lightheaded he denies any chest pain or pressure no shortness of breath. He does note his heart rate feels fast. He denies any nausea or vomiting. He states he has been having regular bowel movements. No black or bloody stools. He has been urinating without issue. He states no abdominal or scrotal pain. He states his RUT drain for the scrotum had about 20 mL of bloody drainage yesterday and there is a proximally 30 mL in the drain currently that is the total for today. He does note every time he sits down to go to the bathroom he does have blood drip into the toilet and he has had to change a pad that he has been wearing in his underwear about 12 times total since discharge on the . Patient states has had a prior appendectomy, has not had any prior cardiac history or arrhythmias has not had any prior cardiac stents. No known drug allergies. No tobacco, occasional alcohol, no recreational drugs. Dr. Islas is his primary care physician. Dr. Uribe is his urologist he had an appointment today at 1:30 p.m but will be unable to attend. Related Data Home Medications Medication Instructions Recorded Confirmed aspirin 81 mg chewable tablet 81 mg PO DAILY 07/05/19 12/11/23 multivitamin 1 tab PO DAILY 11/12/21 12/11/23 mecobalamin (vitamin B12) 5,000 1 tab PO DAILY 07/12/23 12/11/23 mcg disintegrating tablet vitamin E (dl, acetate) 180 mg 180 mg PO DAILY 07/12/23 12/11/23 (400 unit) capsule Previous Rx's Medication Instructions Recorded atorvastatin 20 mg tablet 20 mg PO DAILY #90 tabs 12/23/22 losartan 50 mg tablet 50 mg PO DAILY #90 tabs 07/12/23 alfuzosin 10 mg tablet,extended 10 mg PO DAILY #90 tabs 09/29/23 release 24 hr (Uroxatral) amlodipine 5 mg tablet 5 mg PO BID #180 tabs 11/24/23 oxycodone 5 mg tablet 5 mg PO Q4H PRN pain #14 tabs 12/10/23 Allergies Allergy/AdvReac Type Severity Reaction Status Date / Time No Known Drug Allergies Allergy Verified 12/10/23 21:28 Review of Systems Review of Systems ROS Unobtainable: All systems reviewed & are unremarkable except as noted in HPI and below Patient History Medical History Postoperative hemorrhage Male hematocele Positive FIT (fecal immunochemical test) BPH w urinary obs/LUTS Left hydrocele Arthritis Hearing loss Mumps Measles DM type 2 with diabetic dyslipidemia Venous insufficiency Severe obesity (BMI >= 40) Psoriasis Left acoustic neuroma Mixed hyperlipidemia Surgical History History of hydrocelectomy Hx of circumcision Hx of appendectomy Family History Father Hypertension Mother Hypertension Brother Hypertension Social History marital status: household members: none Smoking Status: Never smoker alcohol intake: current substance use type: does not use caffeine: Yes Smoking Status: Never smoker alcohol intake frequency: a few times a month Substance Use Type: does not use Exam Narrative Exam Narrative: GEN: Obese male, slightly pale, alert and oriented x 3, patient appears to be in mild distress. Diaphoresis. HEENT: Atraumatic, pupils are equal round reactive to light, extraocular movements are intact, nares are clear, TMs are clear with no fluid, there is no conjunctival pallor. Throat is clear without any exudates, erythema, tonsillar enlargement or uvular deviation HEART: Regular rate tachycardic, occasionally irregular without murmur, clicks, rubs. No carotid bruits, pulses are equal in upper and lower extremities LUNGS:Lungs clear to auscultation, no wheezes, rales, crackles, chest moves symmetrically, no tachypnea or accessory muscle use. ABD:bowel sounds normal, soft, non-tender on exam, no guarding, rebound, rigidity, no masses noted, no hepatosplenomegaly :No CVA tenderness, Male: Patient has significant swelling of the penis and scrotum, has quite a bit of ecchymosis of the entire area, there is a healing incision on the right scrotum with very small opening with scant amount of bright red blood, patient also has a RUT drain from the left which has approximately 20-30 mL of gross blood, no penile discharge or lesions, testicles non-tender. MSCL: Non-tender, no muscle atrophy, muscles strength 5/5 upper and lower extremities, full range of motion. NEURO:CN 2-12 intact, sensation normal Initial Vital Signs Initial Vital Signs: Vital Signs Temperature 98 F 12/14/23 10:40 Pulse Rate 158 H 12/14/23 10:40 Respiratory Rate 28 H 12/14/23 10:40 Blood Pressure 130/67 12/14/23 10:40 Pulse Oximetry 96 12/14/23 10:40 Oxygen Delivery Method Room Air 12/14/23 10:40 Course Orders Ordered: ED Orders 12/14/23 10:40 Complete Blood Count AUTO DIFF Stat Comprehensive Metabolic Panel Stat D Dimer Stat Lactate (Lactic Acid) Stat Magnesium Stat NT-proBNP (BNP-Adult 18+) Stat Procalcitonin Stat Troponin & CK Cardiac Panel Stat 12/14/23 10:46 XR chest 1V Stat 12/14/23 10:53 EKG-12 Lead Stat 12/14/23 11:10 Blood Culture Stat Type and Screen Stat 12/14/23 12:19 CT abdomen pelvis w con Stat CT angio chest PE protocol Stat 12/14/23 12:40 Trop I [Troponin I] Stat Urinalysis and Microscopic Stat 12/14/23 14:08 EC echo doppler complete Stat DILTIAZEM (Diltiazem 125 Mg/125 Ml-D5w) 125 mg in 125 mls @ 5 mls/hr IV TITRATE JULIO; Protocol Last Titration: 12/14/23 13:24 Dose: 10 mg/hr, 10 mls/hr Documented By: Titration: 12/14/23 13:05 Dose: 5 mg/hr, 5 mls/hr Documented By: Titration: 12/14/23 12:40 Dose: 0 mg/hr, 0 mls/hr Documented By: Admin: 12/14/23 12:23 Dose: 5 mg/hr, 5 mls/hr Documented By: ZOYA Discontinued Medications Diltiazem HCl (Diltiazem 5 Mg/Ml Sdv) 10 mg IV NOW ONE Stop: 12/14/23 11:16 Last Admin: 12/14/23 11:15 Dose: 10 mg Documented By: ZOYA Sodium Chloride (Normal Saline 0.9%) 1,000 mls @ 1,000 mls/hr IV BOLUS ONE Stop: 12/14/23 11:47 Last Infusion: 12/14/23 12:23 Dose: Infused Documented By: Admin: 12/14/23 11:00 Dose: 1,000 mls/hr Documented By: ZOYA Sodium Chloride (Sodium Chloride 0.9% Flush) 10 ml IV BID JULIO Last Admin: 12/14/23 11:14 Dose: Not Given Documented By: ZOYA Sodium Chloride (Sodium Chloride 0.9% Flush) 10 ml IV PRN PRN PRN Reason: Flush Vital Signs Vital signs: Vital Signs - 8 hr 12/14/23 10:40 12/14/23 11:15 12/14/23 11:15 Temperature 98 F Pulse Rate 158 H 145 H Respiratory Rate 28 H Blood Pressure 130/67 103/61 107/55 L Pulse Oximetry 96 Oxygen Delivery Method Room Air 12/14/23 11:25 12/14/23 11:30 12/14/23 11:31 Temperature Pulse Rate 132 H 131 H 136 H Respiratory Rate 17 18 Blood Pressure 112/64 130/67 Pulse Oximetry 93 92 Oxygen Delivery Method 12/14/23 11:31 12/14/23 11:35 12/14/23 11:35 Temperature Pulse Rate 131 H Respiratory Rate 18 Blood Pressure 109/58 L 93/52 L Pulse Oximetry 91 Oxygen Delivery Method 12/14/23 11:37 12/14/23 11:37 12/14/23 11:40 Temperature Pulse Rate 132 H 132 H Respiratory Rate 17 18 Blood Pressure 110/60 Pulse Oximetry 93 95 Oxygen Delivery Method 12/14/23 11:40 12/14/23 11:45 12/14/23 11:45 Temperature Pulse Rate 135 H Respiratory Rate 17 Blood Pressure 109/55 L 112/65 Pulse Oximetry 93 Oxygen Delivery Method 12/14/23 11:50 12/14/23 11:50 12/14/23 11:55 Temperature Pulse Rate 134 H Respiratory Rate 17 Blood Pressure 125/60 135/64 Pulse Oximetry 93 Oxygen Delivery Method 12/14/23 11:55 12/14/23 12:00 12/14/23 12:00 Temperature Pulse Rate 134 H 132 H Respiratory Rate 17 18 Blood Pressure 122/58 L Pulse Oximetry 94 93 Oxygen Delivery Method 12/14/23 12:05 12/14/23 12:05 12/14/23 12:10 Temperature Pulse Rate 137 H 136 H Respiratory Rate 18 18 Blood Pressure 115/67 Pulse Oximetry 94 93 Oxygen Delivery Method 12/14/23 12:10 12/14/23 12:15 12/14/23 12:15 Temperature Pulse Rate 139 H Respiratory Rate 17 Blood Pressure 131/77 117/68 Pulse Oximetry 93 Oxygen Delivery Method 12/14/23 12:20 12/14/23 12:20 12/14/23 12:25 Temperature 98.6 F Pulse Rate 148 H 139 H Respiratory Rate 19 17 Blood Pressure 120/76 Pulse Oximetry 93 94 Oxygen Delivery Method 12/14/23 12:25 12/14/23 12:30 12/14/23 12:35 Temperature Pulse Rate 155 H 143 H Respiratory Rate 17 17 Blood Pressure 125/85 Pulse Oximetry 95 96 Oxygen Delivery Method 12/14/23 12:36 12/14/23 12:36 12/14/23 12:40 Temperature Pulse Rate 150 H 150 H Respiratory Rate 26 H 24 Blood Pressure 151/69 H Pulse Oximetry 95 Oxygen Delivery Method 12/14/23 12:40 12/14/23 13:02 12/14/23 13:03 Temperature Pulse Rate 162 H 146 H Respiratory Rate 25 H 19 Blood Pressure 117/69 Pulse Oximetry 86 L 97 Oxygen Delivery Method 12/14/23 13:03 12/14/23 13:05 12/14/23 13:05 Temperature Pulse Rate 143 H Respiratory Rate 17 Blood Pressure 118/83 136/77 Pulse Oximetry 96 Oxygen Delivery Method 12/14/23 13:10 12/14/23 13:10 12/14/23 13:15 Temperature Pulse Rate 136 H 147 H Respiratory Rate 13 15 Blood Pressure 130/82 Pulse Oximetry 97 95 Oxygen Delivery Method 12/14/23 13:16 12/14/23 13:16 12/14/23 13:20 Temperature Pulse Rate 141 H 147 H Respiratory Rate 14 12 Blood Pressure 134/87 Pulse Oximetry 95 96 Oxygen Delivery Method 12/14/23 13:21 12/14/23 13:21 12/14/23 13:25 Temperature Pulse Rate 143 H 143 H Respiratory Rate 16 16 Blood Pressure 150/70 H Pulse Oximetry 96 95 Oxygen Delivery Method 12/14/23 13:26 12/14/23 13:26 12/14/23 13:36 Temperature Pulse Rate 149 H 155 H Respiratory Rate 17 23 Blood Pressure 158/85 H Pulse Oximetry 96 95 Oxygen Delivery Method 12/14/23 13:40 12/14/23 13:45 12/14/23 13:47 Temperature Pulse Rate 143 H 140 H 140 H Respiratory Rate 16 16 16 Blood Pressure Pulse Oximetry 97 95 95 Oxygen Delivery Method 12/14/23 13:47 12/14/23 13:50 12/14/23 13:55 Temperature Pulse Rate 140 H 139 H Respiratory Rate 16 15 Blood Pressure 113/78 Pulse Oximetry 95 94 Oxygen Delivery Method 12/14/23 14:00 12/14/23 14:00 12/14/23 14:05 Temperature Pulse Rate 135 H 137 H Respiratory Rate 15 15 Blood Pressure 122/75 Pulse Oximetry 94 94 Oxygen Delivery Method 12/14/23 14:10 12/14/23 14:15 Temperature Pulse Rate 140 H 140 H Respiratory Rate 15 25 H Blood Pressure Pulse Oximetry 94 95 Oxygen Delivery Method Medical Decision Making Lab Data 12/14/23 10:40 12/14/23 10:40 Labs: Lab Results 12/14/23 12/14/23 12/14/23 Range/Units 10:40 11:10 12:40 WBC 12.4 H (4.5-11.0) X10^3/uL RBC 3.94 L (4.5-5.9) X10^6/uL Hgb 11.8 L (13.5-17.5) g/dL Hct 35.3 L (41-53) % MCV 89.5 (80-100) fL MCH 30.0 (26-34) PG MCHC 33.5 (30-36) % RDW 13.6 (11.6-14.8) % Plt Count 272 (150-400) X10^3/uL Neut % (Auto) 81.4 H (50-75) % Lymph % (Auto) 9.8 L (25-40) % Todd % (Auto) 6.9 (3-14) % Eos % (Auto) 1.7 L (2-4) % Baso % (Auto) 0.2 (0-2) % Neut # (Auto) 58378 H (8909-5755) /uL Lymph # (Auto) 1200 (9985-0071) /uL Todd # (Auto) 900 (0-900) /uL Eos # (Auto) 200 (0-450) /uL Baso # (Auto) 0 (0-100) /uL D-Dimer 789 H (<500) ng/ml Sodium 137 (137-145) mmol/L Potassium 3.5 (3.4-5.1) mmol/L Chloride 100 (98-107) mmol/L Carbon Dioxide 31 (22-32) mmol/L BUN 17 (9-20) mg/dL Creatinine 0.95 (0.66-1.25) mg/dL Estimated GFR > 60 (>60) mL/min BUN/Creatinine Ratio 17.9 (6-22) Glucose 160 H (80-110) mg/dL Lactate 1.9 (0.7-2.1) mmol/L Calcium 8.8 (8.4-10.2) mg/dL Magnesium 1.7 (1.6-2.3) mg/dL Total Bilirubin 1.2 (0.2-1.3) mg/dL AST 37 (17-59) IU/L ALT 33 (<50) IU/L Alkaline Phosphatase 60 (38-126) U/L Total Creatine Kinase 104 (55-170) U/L Troponin I 0.169 H* 0.175 H* (0.01-0.034) ng/mL NT-Pro-B Natriuret Pep 1270 H (<450) pg/mL Total Protein 6.9 (6.3-8.2) g/dL Albumin 4.2 (3.5-5.0) g/dL Globulin 2.7 (1.7-4.1) g/dL Albumin/Globulin Ratio 1.6 (1.0-2.8) Procalcitonin 0.04 (<0.5) ng/mL Urine Color Yellow Urine Appearance Clear Urine pH 6.0 (4.5-8.0) Ur Specific Gonzales 1.010 (1.000-1.035) Urine Protein Negative (Negative) Urine Glucose (UA) Negative (Negative) g/dL Urine Ketones 1+ H (NEGATIVE) Urine Occult Blood 3+ H (Negative) Urine Nitrate Negative (Negative) Urine Bilirubin Negative (NEGATIVE) Urine Urobilinogen 0.2 (0.2) E.U./dL Ur Leukocyte Esterase Negative (NEGATIVE) Urine RBC 5-10/hpf H (0-5/HPF) Urine WBC 0-1/hpf (0-5/HPF) Ur Squamous Epith Cells None seen (0-5/HPF) Urine Bacteria None seen (None) Ur Culture Indicated? Cult not indicated Vol Urine Centrifuged 10ml (spun) Blood Type A Positive Antibody Screen Negative Point of Care Testing Glucose POC 175 Point of care testing: Point of Care Testing Glucose POC 175 Imaging Data Chest x-ray: Radiologist's Impression: Don Roberts?(Arvind)??78??M??1945 ? Allergy/Adv: No Known Drug Allergies (More??) Close Chest X-Ray (Signed) Karl Stark - 12/14/23 Telemetry Strips 12/11/23 Scrotum Ultrasound (Signed) Flako Chou - 12/10/23 DI Result 10/23/22 Scrotum Ultrasound (Signed) Justin Archer - 01/08/22 Brain MRI (Signed) Lou Barahona - 05/25/18 Launch?[address] [address] XRay Report Signed Patient: Don Roberts MR#: [id number] : 1945 Acct:[id number] Age/Sex: 78 / M Date of Service: 12/14/23 Loc: ED Accession Number: [id number] Procedure: XR chest 1V Ordering Provider: Bette Gaytan D.O. PROCEDURE: XR CHEST 1V INDICATIONS: tachycardia, recent hydrocele sx w/ complications TECHNIQUE: One view of the chest was acquired. COMPARISON: None. FINDINGS: Surgical changes and devices: None. Lungs and pleura: Low lung volumes. No consolidation or pleural effusion Mediastinum: Borderline heart size Bones and chest wall: Degenerative changes. IMPRESSION: Limited single view radiograph with low lung volumes. No acute abnormality. Borderline enlarged heart. Dictated by: Karl Stark M.D. on 12/14/2023 at 11:35 Approved by: Karl Stark M.D. on 12/14/2023 at 11:36 ECG Data Attestation: I personally reviewed and interpreted this ECG as follows: Prior ECG tracings: available for review Interpretation: AFib 41 QRS of 92 QTC 465, no acute ST elevation or depression appreciated. Patient does have recent PVCs does not have a P wave with every QRS. Patient has prior from 12/11/2023 which shows normal sinus rhythm. MDM Narrative Medical decision making narrative: 78-year-old male presents with tachycardia, was reportedly hypotensive with EMS in the field but pressure initially is appropriate, no hypoxia patient has quite a bit of bruising and swelling but states pain is well-controlled he has a drain which does have bright red blood but he describes 50 mL output over the past 24 hours with some blood each time he urinates. Patient has gone through a thin pad about 12 times in 48 hours with each bowel movement he will change it but denies that it has been soaked through each time. Patient did have type and screen sent. Tachycardia could be secondary to arrhythmia versus anemia or other source, patient does have frequent PVCs on telemetry could have atrial fibrillation. EKG shows AFib RVR. Labs patient has a white count of 12 hemoglobin appears stable at 11 compared to 09/19/2026 was 13 on 12/09. Procalcitonin is negative. Lactate is normal range. Patient had platelets of 272. Dimer was obtained as patient has new AFib RVR without any clear source although his body has been stressed his dimer is 780 9 and when age adjusted is just outside the normal limits for age adjusted. Electrolytes are otherwise appropriate potassium is 3.5 creatinine is 0.95 glucose is 160 LFTs are negative Mag is 1.7 troponin is positive at 0.169 patient did have a negative troponin and 12/11/2023 with a BNP of 1270. . Troponin was trended and repeat is slightly elevated at 0.175 from the 1st. Chest x-ray shows no acute change CT imaging, CT PE was ordered secondary to elevated dimer new onset AFib RVR with positive troponin elevated BNP, as patient just had recent surgery although appears to be healing with patient's significant medical issues CT abdomen pelvis was included as well. These show CTA shows no acute PE, no airspace disease, trace left pleural effusion no suspicious nodules macro nodules are right lung are seen which falling optional imaging in 4 high-risk patients. Patient has had some improvement in rate with diltiazem 10 mg was started on a drip as he has not appropriately anticoagulated for cardioversion and unclear of onset. We will hold on heparin patient had significant bleeding after his surgery while awaiting CT angio. He has been taking an aspirin daily. Spoke with cardiology, Dr. Jackson: Reviewed can hold off for anticoagulation secondary concern for bleeding for now continuing to trend troponins he does suspect demand ischemia would continue with rate control. Does recommend if we can get an echo today if it has not too late in the day. Echo was contacted they are unavailable but can see patient tomorrow. Feels patient could stay here for now unless other changes occur. Spoke with urology, Dr. Patino: He will let Dr. Uribe know patient is coming in and needs to be followed urologically patient is still has a drain in place. Spoke with Dr. Jha, discussed recommendations from cardiology he feels comfortable to keep patient discussed recommendations from cardiology workup. Discussed start troponins have trended up slightly but suspected demand ischemia. We will hold heparin drip for now. We will discuss with urology so they can follow along with patient as he does have a drain in place. Critical Care Time Critical Care Time Critical Care Time: Yes Total Critical Care Time: 45 Attestation: The high probability of a clinically significant, sudden or life threatening deterioration of the [] system(s) required my full and direct attention, intervention and personal management. The aggregate critical care time was [] minutes. This time is in addition to time spent performing reported procedures but includes the following: [x] Data Review and interpretation [x] Patient assessment and monitoring of vital signs [x] Documentation [x] Medication orders and management Discharge Plan Departure Patient Disposition: Admitted As Inpatient Clinical Impression: Atrial fibrillation with rapid ventricular response, Non-ST elevation [place] (NSTEMI), Status post surgery Admit Date/Time: 12/14/23 14:17 Admit Provider: Santosh Jha
[2023-12-14 10:59] LABS: Add Manual Diff / Slide Review NO; Basophils Absolute Auto 0 /uL (0-100); Basophils Percent Auto 0.2 % (0-2); Eosinophils Absolute Auto 200 /uL (0-450); Eosinophils Percent Auto 1.7 % (2-4); Hematocrit 35.3 % (41-53); Hemoglobin 11.8 g/dL (13.5-17.5); Lymphocytes Absolute Auto 1200 /uL (1100-4500); Lymphocytes Percent Auto 9.8 % (25-40); Mean Corpuscular HGB Conc 33.5 % (30-36); Mean Corpuscular Volume 89.5 fL (80-100); Monocytes Absolute Auto 900 /uL (0-900); Monocytes Percent Auto 6.9 % (3-14); Neutrophils Absolute Auto 10100 /uL (1500-7000); Neutrophils Percent Auto 81.4 % (50-75); Platelet Count 272 X10^3/uL (150-400); Red Blood Cell Count 3.94 X10^6/uL (4.5-5.9); Red Cell Distribution Width 13.6 % (11.6-14.8); White Blood Cell Count 12.4 X10^3/uL (4.5-11.0)
[2023-12-14] MEDS: SODIUM CHLORIDE 0.9% 1,000 ML 1000 ML IV (11:00)
[2023-12-14 11:03] LABS: Alanine Aminotransferase 33 IU/L (<50); Albumin 4.2 g/dL (3.5-5.0); Albumin Globulin Ratio 1.6 (1.0-2.8); Alkaline Phosphatase 60 U/L (38-126); Aspartate Aminotransferase 37 IU/L (17-59); BUN Creatinine Ratio 17.9 (6-22); Bilirubin Total 1.2 mg/dL (0.2-1.3); Blood Urea Nitrogen 17 mg/dL (9-20); Calcium 8.8 mg/dL (8.4-10.2); Carbon Dioxide 31 mmol/L (22-32); Chloride 100 mmol/L (98-107); Creatine Kinase 104 U/L (55-170); Estimated Glomerular Filt Rate > 60 mL/min (>60); Globulin 2.7 g/dL (1.7-4.1); Glucose 160 mg/dL (80-110); HEMOLYSIS 15 (0-50); Potassium 3.5 mmol/L (3.4-5.1); Sodium 137 mmol/L (137-145); Total Protein 6.9 g/dL (6.3-8.2)
[2023-12-14 11:04] LABS: Lactate (Lactic Acid) 1.9 mmol/L (0.7-2.1)
[2023-12-14 11:14] LABS: NT-proBNP (BNP-Adult 18+) 1270 pg/mL (<450)
[2023-12-14] MEDS: dilTIAZem 5 MG/ML SDV 10 MG IV (11:15)
[2023-12-14 11:20] LABS: Procalcitonin 0.04 ng/mL (<0.5)
[2023-12-14 11:25] LABS: Troponin I 0.169 ng/mL (0.01-0.034)
--- NOTE | 2023-12-14 11:34 | PC.NURSE ---
Pt came to ED today via BLS ambulance because he woke up around 0600 and felt like he had a racing heart and was very sweaty. Pt has hydrocelectomy by Dr Araujo on and d/c n monday 12/11. Pt denies abd & scrotal pain. Denies any difficulty urinating. Denies cp & fevers. Pt tachycardic w/ HR 158 upon arival and triage. Skin cool and dry to touch. Scrotum pruple and edemetous. Pt states that he has had to change his pad multiple times. Pt a&ox4.
[2023-12-14 11:43] LABS: D Dimer 789 ng/ml (<500)
[2023-12-14 11:57] LABS: Magnesium 1.7 mg/dL (1.6-2.3)
--- NOTE | 2023-12-14 12:19 | DI.CT.S_ITS ---
PROCEDURE: CT ANGIO CHEST PE PROTOCOL INDICATIONS: R/O PE, new afib RVr, s/p hydrocele w/ evac blood TECHNIQUE: After the administration of intravenous contrast, 2 mm thick sections acquired from the pulmonary apices to the posterior costophrenic angles. 3-dimensional maximum intensity projection (MIP) coronal and sagittal reformats were then acquired through the thorax. For radiation dose reduction, the following was used: automated exposure control, adjustment of mA and/or kV according to patient size. COMPARISON: None. FINDINGS: Image quality: Diagnostic Lungs and pleura: Scattered scarring and atelectasis. No dense airspace disease. Mild bronchial wall thickening at the bases. Trace left pleural effusion. Left greater right pleural thickening also present. No suspicious nodules/mass requiring followup, assuming patient is not high risk and has no primary malignancy. Micro nodules, for example right lung 11/15 are seen, for which follow-up imaging is optional for high risk patients. Mediastinum, heart, and esophagus: No acute pulmonary embolism. The esophagus is unremarkable. Coronary calcifications are present. Borderline cardiomegaly. No pathologic lymph nodes by size criteria. Chest wall and thyroid: Unremarkable Upper abdomen: Separately dictated Bones: Degenerative changes. IMPRESSION: No acute pulmonary embolism. No dense airspace disease. Trace left pleural effusion. Other findings as above. Dictated by: Karl Stark M.D. on 12/14/2023 at 13:23 Approved by: Karl Stark M.D. on 12/14/2023 at 13:27
--- NOTE | 2023-12-14 12:19 | DI.CT.S_ITS ---
PROCEDURE: CT ABDOMEN PELVIS W CON INDICATIONS: R/O PE, new afib RVr, s/p hydrocele w/ evac blood TECHNIQUE: After the administration of intravenous contrast, axial sections acquired from the lung bases to the pubic symphysis. Coronal and sagittal reformats were performed. For radiation dose reduction, the following was used: automated exposure control, adjustment of mA and/or kV according to patient size. COMPARISON: [facility], , US SCROTUM, 12/10/2023, 22:04. FINDINGS: Image quality: Diagnostic Lower chest: Separately dictated Liver: Unremarkable Gallbladder and biliary system: Unremarkable, nondilated Pancreas: No ductal dilation Spleen: Nonenlarged Adrenals: No discrete nodules Kidneys: No solid mass or hydronephrosis. Nonobstructing right posterior calculus. Vessels and lymph nodes: Main portal vein is patent. No abdominal aortic aneurysm. Mildly enlarged upper abdominal lymph nodes, for example portal caval lymph node measuring 1.5 cm. These are nonspecific and may be reactive. Bowel and peritoneum: No evidence of small bowel obstruction. No pathologic abscess or drainable intra-abdominal or intrapelvic abscess. Body wall: Small fat containing inguinal hernias Pelvis: Bladder is unremarkable. The prostate is not well evaluated on this study. Moderate degree of edema throughout the scrotal wall. Prominent vasculature. Mild left peritesticular hyperattenuation. Drain is present. Bones: Degenerative changes, no acute or suspicious finding. IMPRESSION: Moderate edema of the scrotum and peritesticular fluid. Hyperattenuating material in particular around the left testicle may represent small hematoma. A drain is present. Unable to assess for active bleeding on this single phase study. If further imaging is desired, consider repeat ultrasound. Other findings as above. Dictated by: Karl Stark M.D. on 12/14/2023 at 13:32 Approved by: Karl Stark M.D. on 12/14/2023 at 13:37
[2023-12-14] MEDS: DILTIAZEM 125 MG/125 ML PIGGYBACK IV (12:23)
[2023-12-14 13:00] LABS: Appearance Urine UA CLEAR; Bilirubin Urine UA NEGATIVE (NEGATIVE); Color Urine UA YELLOW; Glucose Urine UA NEGATIVE (Negative); Ketones Urine UA 1+ (NEGATIVE); Leukocyte Esterase Urine UA NEGATIVE (NEGATIVE); Nitrite Urine UA NEGATIVE (Negative); Occult Blood Urine UA 3+ (Negative); Protein Urine UA NEGATIVE (Negative); Urobilinogen Urine UA 0.2 E.U./dL (0.2)
[2023-12-14 13:24] LABS: Bacteria Urine None Seen; Culture Indicated Urine Cult Not Indicated; RBC Urine 5-10/HPF (0-5/HPF); Squamous Epithelial Cell Urine None Seen (0-5/HPF); Urine Volume 10mL (spun); WBC Urine 0-1/HPF (0-5/HPF)
[2023-12-14 13:30] LABS: Troponin I 0.175 ng/mL (0.01-0.034)
--- NOTE | 2023-12-14 13:52 | PC.NURSE ---
Dr Gaytan aware of pts bp change from 150 systolic to 113 systolic after increasing cardizem to 10ml/hr. Dr Gaytan ordered to continue at 10ml/hr cardizem
--- NOTE | 2023-12-14 14:08 | DI.ECHO.S_ITS ---
[facility]+ [facility] : : [address] : : [place] : : [id number] : : Phone: [phone] Echocardiogram Report + + :Name: SONIA BAILON Study Date: 12/15/2023 Height: 67 in : :Hospital ReadingLocation: Weight: 250 lb : : Gender: Male BSA: 2.2 m2 : :: 1945 Age: 78 yrs BP: 139/74 mmHg: :Reason For Study: NSTEMI, ATRIAL FIBRILLATION : :Ordering Physician: SAW, : :VITOR Performed By: Linh Carrasco : :Referring: VITOR SPRING : + + Interpretation Summary 1) Normal left ventricular thickness, size, wall motion, and systolic function (EF 60-65%). 2) Normal right ventricular size and function. 3) There is mild to moderate mitral regurgitation. 4) There is mild to moderate aortic stenosis (valve area 1.3cm2, mean gradient 11mmHg, severity ratio 0.44). 5) No prior Echo available for comparison. Procedure: A two-dimensional transthoracic echocardiogram with color flow and Doppler was performed. The study quality was technically adequate. There is no prior echocardiogram noted for this patient. The patient was in atrial fibrillation with heart rates between 69-83 bpm during the exam. Left Ventricle: The left ventricle is normal in size and wall thickness. The ejection fraction is estimated to be 60-65%. Left ventricular systolic function appears normal without focal wall motion abnormalities. Diastolic function could not be accurately assessed due to atrial fibrillation. Right Ventricle: The right ventricle is normal in size and function. Atria: The left atrial size is normal. Right atrial size is normal. There is no Doppler evidence for an interatrial shunt. Mitral Valve: The mitral valve is normal in structure and function. There is mild to moderate mitral regurgitation. Aortic Valve: The aortic valve is mildly calcified. There is mild to moderate aortic stenosis. The peak aortic velocity is 2.2 m/sec. The aortic valve mean gradient is 11 mmHg. The calculated aortic valve area is 1.3 cm2. There is trace aortic regurgitation. Tricuspid Valve: The tricuspid valve is normal in structure and function. There is a trace or physiologic amount of tricuspid regurgitation. Pulmonic Valve: The pulmonic valve leaflets are thin and pliable; valve motion is normal. There is a trace or physiologic amount of pulmonic regurgitation. Great Vessels: The aortic root is normal size. The dimensions of the ascending aorta are normal. The IVC is of normal diameter and collapses greater than 50% with a sniff. This suggests a low right atrial pressure of 3 mm Hg. Pericardium/ Pleura There is no pericardial effusion. There is no pleural effusion. MMode/2D Measurements & Calculations LVIDd: 5.0 cm LVOT diam: 1.9 cm LVIDs: 3.5 cm Ao root diam: 3.2 cm FS: 30.5 % asc Aorta Diam: 3.4 cm IVSd: 0.93 cm Ao Arch Diam (Prox Trans): 2.9 cm LVPWd: 1.1 cm LV echols. diameter/BSA (cm/m^2): 2.2 LV sys. diameter/BSA (cm/m^2): 1.6 LA A2 area: 20.8 cm2 RA long axis: 5.1 cm LA A4 area: 16.1 cm2 RA area: 14.1 cm2 LA length (vol): 4.9 cm RA vol: 33.2 ml LA vol: 57.4 ml RA : 14.9 ml/m2 LA vol index: 25.8 ml/m2 IVC diam: 1.8 cm RVD1 (basal): 4.0 cm RVD2 (mid): 3.1 cm TAPSE: 1.9 cm Doppler Measurements & Calculations Ao V2 max: 224.5 cm/sec LVOT Max Christophe: 86.1 cm/sec Ao V2 mean: 148.8 cm/sec LV V1 max P.0 mmHg Ao max P.9 mmHg LV V1 VTI: 18.2 cm Ao mean P.2 mmHg YUSUF(I,D): 1.3 cm2 Ao V2 VTI: 41.1 cm YUSUF(V,D): 1.1 cm2 sev ratio: 0.44 YUSUF indexed to BSA (cm^2/m^2): 0.56 MV E max christophe: 113.6 cm/sec TR max christophe: 279.6 cm/sec MV A max christophe: 1.1 cm/sec TR max P.3 mmHg MV E/A: 104.2 PA V2 max: 102.5 cm/sec Med Peak E' Christophe: 6.8 cm/sec PA V2 mean: 77.7 cm/sec E/E' med: 16.6 PA mean P.5 mmHg Lat Peak E' Christophe: 11.2 cm/sec PA pr(Accel): 34.5 mmHg E/E' lat: 10.1 E/e' average: 13.4 MV dec time: 0.20 sec SV(LVOT): 51.5 ml Reading Physician:08:49 AM
--- NOTE | 2023-12-14 15:43 | PC.NURSE ---
Pt up to [facility] x3. Urine yellow with threads of blood. Pt scrotum remains swollen and purple and blood on pad. Afib with HR 131. Order from Dr Gaytan to keep dilt drip at 10mg/hr due to pt's bp dropping. Some SOB noted when pt up to BSC but o2 sat WNL. Pt a&ox4. Denies cp.
--- NOTE | 2023-12-14 18:07 | P.HP_ITS ---
History of Present Illness History of Present Illness Date Patient Seen: 12/14/23 Time Patient Seen: 18:07 Chief complaint: weakness/nausea Narrative: 78-year-old male history of hypertension, dyslipidemia, chronic venous insufficiency, who is not on any daily anticoagulation who presents with complaint of diaphoresis, lightheadedness and tachycardia patient had a hydrocele surgery earlier this month on the 10 December returned with quite a bit of bleeding in the scrotum was admitted and taken to the OR. He was then discharged home on 12/[address] Pt woke this morning with feeling of pressure in his chest and heart racing. Then felt sweaty and lightheaded and slightly dyspneic after checking his blood pressure. In Ed noted to be tachycardic in 160's with afib rhythm. EKG personally reviewed and shows afib without ST abnormalities. Initial elevated troponin. He has not had ongoing chest pain or severe dyspnea. No fevers or chills. Still peeing blood small amount. Elev d-dimer but no P.E. on chest angiogram. Abd/pelvis CT with mod scrotal edema, otherwise unremarkable. Started on diltiazem drip in ED. Pt's brother and father both had CAD, bypasses in their 70's. [facility] Medical History Postoperative hemorrhage Male hematocele Positive FIT (fecal immunochemical test) BPH w urinary obs/LUTS Left hydrocele Arthritis Hearing loss Mumps Measles DM type 2 with diabetic dyslipidemia Venous insufficiency Severe obesity (BMI >= 40) Psoriasis Left acoustic neuroma Mixed hyperlipidemia Surgical History History of hydrocelectomy Hx of circumcision Hx of appendectomy Family History Father Hypertension Mother Hypertension Brother Hypertension Social History marital status: household members: none Smoking Status: Never smoker alcohol intake: current substance use type: does not use caffeine: Yes Meds Home Medications and Allergies Home Medications Medication Instructions Recorded Confirmed Type aspirin 81 mg chewable tablet 81 mg PO DAILY 07/05/19 12/14/23 History multivitamin 1 tab PO DAILY 11/12/21 12/14/23 History atorvastatin 20 mg tablet 20 mg PO DAILY #90 tabs 12/23/22 12/14/23 Rx losartan 50 mg tablet 50 mg PO DAILY #90 tabs 07/12/23 12/14/23 Rx mecobalamin (vitamin B12) 5,000 1 tab PO DAILY 07/12/23 12/14/23 History mcg disintegrating tablet vitamin E (dl, acetate) 180 mg 180 mg PO DAILY 07/12/23 12/14/23 History (400 unit) capsule alfuzosin 10 mg tablet,extended 10 mg PO DAILY #90 tabs 09/29/23 12/14/23 Rx release 24 hr (Uroxatral) amlodipine 5 mg tablet 5 mg PO BID #180 tabs 11/24/23 12/14/23 Rx Allergies Allergy/AdvReac Type Severity Reaction Status Date / Time No Known Drug Allergies Allergy Verified 12/10/23 21:28 Exam Vital Signs (past 8 hours): - 12/14/23 10:40 12/14/23 11:15 12/14/23 11:15 Temperature 98 F Pulse Rate 158 H 145 H Respiratory Rate 28 H Blood Pressure 130/67 103/61 107/55 L Pulse Oximetry 96 Oxygen Delivery Method Room Air 12/14/23 11:25 12/14/23 11:30 12/14/23 11:31 Temperature Pulse Rate 132 H 131 H 136 H Respiratory Rate 17 18 Blood Pressure 112/64 130/67 Pulse Oximetry 93 92 Oxygen Delivery Method 12/14/23 11:31 12/14/23 11:35 12/14/23 11:35 Temperature Pulse Rate 131 H Respiratory Rate 18 Blood Pressure 109/58 L 93/52 L Pulse Oximetry 91 Oxygen Delivery Method 12/14/23 11:37 12/14/23 11:37 12/14/23 11:40 Temperature Pulse Rate 132 H 132 H Respiratory Rate 17 18 Blood Pressure 110/60 Pulse Oximetry 93 95 Oxygen Delivery Method 12/14/23 11:40 12/14/23 11:45 12/14/23 11:45 Temperature Pulse Rate 135 H Respiratory Rate 17 Blood Pressure 109/55 L 112/65 Pulse Oximetry 93 Oxygen Delivery Method 12/14/23 11:50 12/14/23 11:50 12/14/23 11:55 Temperature Pulse Rate 134 H Respiratory Rate 17 Blood Pressure 125/60 135/64 Pulse Oximetry 93 Oxygen Delivery Method 12/14/23 11:55 12/14/23 12:00 12/14/23 12:00 Temperature Pulse Rate 134 H 132 H Respiratory Rate 17 18 Blood Pressure 122/58 L Pulse Oximetry 94 93 Oxygen Delivery Method 12/14/23 12:05 12/14/23 12:05 12/14/23 12:10 Temperature Pulse Rate 137 H 136 H Respiratory Rate 18 18 Blood Pressure 115/67 Pulse Oximetry 94 93 Oxygen Delivery Method 12/14/23 12:10 12/14/23 12:15 12/14/23 12:15 Temperature Pulse Rate 139 H Respiratory Rate 17 Blood Pressure 131/77 117/68 Pulse Oximetry 93 Oxygen Delivery Method 12/14/23 12:20 12/14/23 12:20 12/14/23 12:25 Temperature 98.6 F Pulse Rate 148 H 139 H Respiratory Rate 19 17 Blood Pressure 120/76 Pulse Oximetry 93 94 Oxygen Delivery Method 12/14/23 12:25 12/14/23 12:30 12/14/23 12:35 Temperature Pulse Rate 155 H 143 H Respiratory Rate 17 17 Blood Pressure 125/85 Pulse Oximetry 95 96 Oxygen Delivery Method 12/14/23 12:36 12/14/23 12:36 12/14/23 12:40 Temperature Pulse Rate 150 H 150 H Respiratory Rate 26 H 24 Blood Pressure 151/69 H Pulse Oximetry 95 Oxygen Delivery Method 12/14/23 12:40 12/14/23 13:02 12/14/23 13:03 Temperature Pulse Rate 162 H 146 H Respiratory Rate 25 H 19 Blood Pressure 117/69 Pulse Oximetry 86 L 97 Oxygen Delivery Method 12/14/23 13:03 12/14/23 13:05 12/14/23 13:05 Temperature Pulse Rate 143 H Respiratory Rate 17 Blood Pressure 118/83 136/77 Pulse Oximetry 96 Oxygen Delivery Method 12/14/23 13:10 12/14/23 13:10 12/14/23 13:15 Temperature Pulse Rate 136 H 147 H Respiratory Rate 13 15 Blood Pressure 130/82 Pulse Oximetry 97 95 Oxygen Delivery Method 12/14/23 13:16 12/14/23 13:16 12/14/23 13:20 Temperature Pulse Rate 141 H 147 H Respiratory Rate 14 12 Blood Pressure 134/87 Pulse Oximetry 95 96 Oxygen Delivery Method 12/14/23 13:21 12/14/23 13:21 12/14/23 13:25 Temperature Pulse Rate 143 H 143 H Respiratory Rate 16 16 Blood Pressure 150/70 H Pulse Oximetry 96 95 Oxygen Delivery Method 12/14/23 13:26 12/14/23 13:26 12/14/23 13:36 Temperature Pulse Rate 149 H 155 H Respiratory Rate 17 23 Blood Pressure 158/85 H Pulse Oximetry 96 95 Oxygen Delivery Method 12/14/23 13:40 12/14/23 13:45 12/14/23 13:47 Temperature Pulse Rate 143 H 140 H 140 H Respiratory Rate 16 16 16 Blood Pressure Pulse Oximetry 97 95 95 Oxygen Delivery Method 12/14/23 13:47 12/14/23 13:50 12/14/23 13:55 Temperature Pulse Rate 140 H 139 H Respiratory Rate 16 15 Blood Pressure 113/78 Pulse Oximetry 95 94 Oxygen Delivery Method 12/14/23 14:00 12/14/23 14:00 12/14/23 14:05 Temperature Pulse Rate 135 H 137 H Respiratory Rate 15 15 Blood Pressure 122/75 Pulse Oximetry 94 94 Oxygen Delivery Method 12/14/23 14:10 12/14/23 14:15 12/14/23 14:20 Temperature Pulse Rate 140 H 140 H 146 H Respiratory Rate 15 25 H 25 H Blood Pressure 122/75 Pulse Oximetry 94 95 Oxygen Delivery Method 12/14/23 14:25 12/14/23 14:30 12/14/23 14:35 Temperature Pulse Rate 146 H 138 H 139 H Respiratory Rate 17 10 L 16 Blood Pressure Pulse Oximetry 96 96 96 Oxygen Delivery Method 12/14/23 14:40 12/14/23 14:45 12/14/23 14:50 Temperature Pulse Rate 142 H 134 H 134 H Respiratory Rate 15 15 14 Blood Pressure Pulse Oximetry 96 94 94 Oxygen Delivery Method 12/14/23 14:55 12/14/23 15:00 12/14/23 15:05 Temperature Pulse Rate 127 H 133 H 127 H Respiratory Rate 16 17 18 Blood Pressure Pulse Oximetry 93 95 92 Oxygen Delivery Method 12/14/23 15:10 12/14/23 15:15 12/14/23 15:20 Temperature Pulse Rate 129 H 129 H 132 H Respiratory Rate 14 17 15 Blood Pressure Pulse Oximetry 95 93 96 Oxygen Delivery Method 12/14/23 15:25 12/14/23 15:30 12/14/23 15:35 Temperature Pulse Rate 132 H 124 H 130 H Respiratory Rate 18 18 19 Blood Pressure 121/58 L Pulse Oximetry 93 93 92 Oxygen Delivery Method 12/14/23 15:38 12/14/23 15:38 12/14/23 15:40 Temperature Pulse Rate 131 H 118 H Respiratory Rate 19 18 Blood Pressure 121/58 L Pulse Oximetry 92 92 Oxygen Delivery Method 12/14/23 15:45 12/14/23 15:45 12/14/23 15:50 Temperature Pulse Rate 126 H 130 H Respiratory Rate 8 L 17 Blood Pressure 136/60 Pulse Oximetry 96 95 Oxygen Delivery Method 12/14/23 15:55 12/14/23 16:00 12/14/23 16:05 Temperature Pulse Rate 140 H 145 H 123 H Respiratory Rate 30 H 32 H 19 Blood Pressure Pulse Oximetry 95 Oxygen Delivery Method 12/14/23 16:10 12/14/23 16:15 12/14/23 16:16 Temperature Pulse Rate 131 H 128 H 121 H Respiratory Rate 18 17 17 Blood Pressure Pulse Oximetry 95 95 95 Oxygen Delivery Method 12/14/23 16:16 12/14/23 16:20 12/14/23 16:25 Temperature Pulse Rate 128 H 125 H Respiratory Rate 16 17 Blood Pressure 156/72 H Pulse Oximetry 94 94 Oxygen Delivery Method 12/14/23 16:30 12/14/23 16:30 12/14/23 16:35 Temperature Pulse Rate 129 H 123 H Respiratory Rate 18 19 Blood Pressure 127/71 Pulse Oximetry 93 93 Oxygen Delivery Method 12/14/23 16:40 12/14/23 16:45 12/14/23 16:45 Temperature Pulse Rate 124 H 119 H Respiratory Rate 19 18 Blood Pressure 129/64 Pulse Oximetry 93 94 Oxygen Delivery Method 12/14/23 16:50 Temperature Pulse Rate 127 H Respiratory Rate 18 Blood Pressure Pulse Oximetry 96 Oxygen Delivery Method Oxygen Delivery Method Room Air Narrative Exam Narrative: Gen: alert, cooperative, NAD HEENT: anicteric Lungs: clear CV: irregular rhythm, no murmur Abd: soft, sev suprapubic bruising extending to scrotum, left scrotal drain with sanguinous drainage Ext: chronic venous stasis changes with mild-mod edema Neuro: nl speech and affect Objective Labs 12/14/23 10:40 12/14/23 10:40 Labs: Laboratory Results - last 24 hr 12/14/23 12/14/23 12/14/23 10:40 11:10 12:40 WBC 12.4 H RBC 3.94 L Hgb 11.8 L Hct 35.3 L MCV 89.5 MCH 30.0 MCHC 33.5 RDW 13.6 Plt Count 272 Neut % (Auto) 81.4 H Lymph % (Auto) 9.8 L [place] % (Auto) 6.9 Eos % (Auto) 1.7 L Baso % (Auto) 0.2 Neut # (Auto) 67576 H Lymph # (Auto) 1200 [place] # (Auto) 900 Eos # (Auto) 200 Baso # (Auto) 0 D-Dimer 789 H Sodium 137 Potassium 3.5 Chloride 100 Carbon Dioxide 31 BUN 17 Creatinine 0.95 Estimated GFR > 60 BUN/Creatinine Ratio 17.9 Glucose 160 H Lactate 1.9 Calcium 8.8 Magnesium 1.7 Total Bilirubin 1.2 AST 37 ALT 33 Alkaline Phosphatase 60 Total Creatine Kinase 104 Troponin I 0.169 H* 0.175 H* NT-Pro-B Natriuret Pep 1270 H Total Protein 6.9 Albumin 4.2 Globulin 2.7 Albumin/Globulin Ratio 1.6 Procalcitonin 0.04 Urine Color Yellow Urine Appearance Clear Urine pH 6.0 Ur Specific [place] 1.010 Urine Protein Negative Urine Glucose (UA) Negative Urine Ketones 1+ H Urine Occult Blood 3+ H Urine Nitrate Negative Urine Bilirubin Negative Urine Urobilinogen 0.2 Ur Leukocyte Esterase Negative Urine RBC 5-10/hpf H Urine WBC 0-1/hpf Ur Squamous Epith Cells None seen Urine Bacteria None seen Ur Culture Indicated? Cult not indicated Vol Urine Centrifuged 10ml (spun) Blood Type A Positive Antibody Screen Negative Assessment & Plan Assessment & Plan narrative: 1. Acute atrial fibrillation with RVR 2. NSTEMI, likely tachycardia mediated vs coronary occlusion 3. Recent hydrocelectomy complicated with postop hematocele 4. Chronic hypertension 5. Type 2 diabetes, diet controlled PLAN: -cont dilt drip titrate to HR control -metoprolol tartrate 50 mg bid -hold losartanl and amlodipine -cont ASA 81 mg qd -cont alfuzosin for BPH -cont scrotal drain per urology -trend troponin -TSH -ECHO -stop ASA and start oral anticoagulation once urological issues with bleeding have resolved Admit status: Obs in ICU DVT prevention: SCDs, lovenox contraindicated due to scrotal bleed Code status: full surrogate: brother, Victor Manuel (lives in [place])
[2023-12-14] MEDS: METOPROLOL IR 50 MG TABLET PO (19:03)
[2023-12-14 19:35] LABS: MRSA (Nasal) PCR NOT DETECTED (Not Detect)
[2023-12-14] MEDS: DILTIAZEM 125 MG/125 ML PIGGYBACK 15 MG IV (20:57)
[2023-12-14 22:16] LABS: Troponin I 0.328 ng/mL (0.01-0.034)
[2023-12-14 22:26] LABS: TSH w/ Reflex to FT4 0.89 uIU/mL (0.47-4.68)
[2023-12-15] VITALS (29 sets, daily range): BP systolic 98–145; BP diastolic 57–82; PULSE 71–126; RESP 14–31; TEMP 36.4–36.9; O2SAT 91–99
--- NOTE | 2023-12-15 06:46 | PC.NURSE ---
night dean RN note pt A&Ox4, SANTANA, up with 1 assist to bedside commode, pt unable to void all his urine in commode, leaks onto floor, afib 60-80s, VSS, dilt gtt titrated to 10mg/hr, 2+ lower leg edema, denies pain, troponin elevated, results communicated to MD internal corrosion specialist with no new orders, lungs clear and decreased, O2 sats dropped into 80s when asleep, 3L NC applied with effect, abd round soft with BS, scrotum edematous and bruised, RUT to scrotum intact draining serosang fluid, scrotum weeping serous fluid, attends/pad on, small skin tear to scrotum when pt had difficulty sitting on commode due to the edema, area cleansed and new pad applied, large bruising to R arm, pt states he hurt his arm on prior admit when he grabbed onto the bedrail to prevent a fall, scattered areas of psoriasis all over his body, periph IV site patent, call rosales within reach, continue to monitor
[2023-12-15 06:54] LABS: Troponin I 0.274 ng/mL (0.01-0.034)
[2023-12-15] MEDS: ATORVASTATIN 20 MG TABLET PO (08:52)
[2023-12-15] MEDS: ASPIRIN 81 MG CHEW TAB PO (08:52)
[2023-12-15] MEDS: METOPROLOL IR 50 MG TABLET PO ×2 (08:52→20:34)
--- NOTE | 2023-12-15 09:11 | P.PN_ITS ---
Subjective Subjective Interval history: He feels better this morning, no chest pain or dyspnea. No nausea. A scrotum is improved. He is able to urinate without difficulty. He denies a history of atrial fibrillation or known CAD. He has a very strong family history of CAD and myocardial infarction. He denies a history of stress testing but had noted exertional dyspnea for 4 months and was discussing this with his PCP prior to his procedure. Exam Vital Signs (past 8 hours): - 12/15/23 02:00 12/15/23 02:00 12/15/23 03:00 Temperature Pulse Rate 79 Respiratory Rate 19 Blood Pressure 140/74 118/67 Pulse Oximetry 99 Oxygen Flow Rate 3 12/15/23 03:00 12/15/23 04:00 12/15/23 04:00 Temperature 97.5 F L Pulse Rate 72 76 Respiratory Rate 19 14 Blood Pressure 129/66 Pulse Oximetry 98 99 Oxygen Flow Rate 3 3 12/15/23 05:00 12/15/23 05:00 12/15/23 06:00 Temperature Pulse Rate 71 Respiratory Rate 17 Blood Pressure 98/57 L 139/74 Pulse Oximetry 96 Oxygen Flow Rate 3 12/15/23 06:00 12/15/23 07:00 12/15/23 07:01 Temperature Pulse Rate 78 82 Respiratory Rate 17 15 Blood Pressure 129/70 Pulse Oximetry 98 98 Oxygen Flow Rate 3 12/15/23 07:01 12/15/23 08:00 12/15/23 08:00 Temperature Pulse Rate 80 83 Respiratory Rate 26 H 16 Blood Pressure 126/65 Pulse Oximetry 96 92 Oxygen Flow Rate Oxygen Delivery Method Room Air Oxygen Flow Rate 3 Narrative Exam Narrative: NAD, alert and oriented. Fluent speech. Lungs are clear, normal rate and effort. Heart is irregular, no murmur gallop or rub. Abdomen is soft, non distended. Extremities are free of edema. Scrotal swelling and ecchymosis, improved, drain in place. Objective Labs 12/14/23 10:40 12/14/23 10:40 Labs: Laboratory Results - last 24 hr 12/14/23 12/14/23 12/14/23 10:40 11:10 12:40 WBC 12.4 H RBC 3.94 L Hgb 11.8 L Hct 35.3 L MCV 89.5 MCH 30.0 MCHC 33.5 RDW 13.6 Plt Count 272 Neut % (Auto) 81.4 H Lymph % (Auto) 9.8 L [place] % (Auto) 6.9 Eos % (Auto) 1.7 L Baso % (Auto) 0.2 Neut # (Auto) 64041 H Lymph # (Auto) 1200 [place] # (Auto) 900 Eos # (Auto) 200 Baso # (Auto) 0 D-Dimer 789 H Sodium 137 Potassium 3.5 Chloride 100 Carbon Dioxide 31 BUN 17 Creatinine 0.95 Estimated GFR > 60 BUN/Creatinine Ratio 17.9 Glucose 160 H Lactate 1.9 Calcium 8.8 Magnesium 1.7 Total Bilirubin 1.2 AST 37 ALT 33 Alkaline Phosphatase 60 Total Creatine Kinase 104 Troponin I 0.169 H* 0.175 H* NT-Pro-B Natriuret Pep 1270 H Total Protein 6.9 Albumin 4.2 Globulin 2.7 Albumin/Globulin Ratio 1.6 Procalcitonin 0.04 TSH Urine Color Yellow Urine Appearance Clear Urine pH 6.0 Ur Specific [place] 1.010 Urine Protein Negative Urine Glucose (UA) Negative Urine Ketones 1+ H Urine Occult Blood 3+ H Urine Nitrate Negative Urine Bilirubin Negative Urine Urobilinogen 0.2 Ur Leukocyte Esterase Negative Urine RBC 5-10/hpf H Urine WBC 0-1/hpf Ur Squamous Epith Cells None seen Urine Bacteria None seen Ur Culture Indicated? Cult not indicated Vol Urine Centrifuged 10ml (spun) Nasal Screen MRSA (PCR) Blood Type A Positive Antibody Screen Negative 12/14/23 12/14/23 12/15/23 17:18 21:27 06:12 WBC RBC Hgb Hct MCV MCH MCHC RDW Plt Count Neut % (Auto) Lymph % (Auto) [place] % (Auto) Eos % (Auto) Baso % (Auto) Neut # (Auto) Lymph # (Auto) [place] # (Auto) Eos # (Auto) Baso # (Auto) D-Dimer Sodium Potassium Chloride Carbon Dioxide BUN Creatinine Estimated GFR BUN/Creatinine Ratio Glucose Lactate Calcium Magnesium Total Bilirubin AST ALT Alkaline Phosphatase Total Creatine Kinase Troponin I 0.328 H* 0.274 H* NT-Pro-B Natriuret Pep Total Protein Albumin Globulin Albumin/Globulin Ratio Procalcitonin TSH 0.89 Urine Color Urine Appearance Urine pH Ur Specific [place] Urine Protein Urine Glucose (UA) Urine Ketones Urine Occult Blood Urine Nitrate Urine Bilirubin Urine Urobilinogen Ur Leukocyte Esterase Urine RBC Urine WBC Ur Squamous Epith Cells Urine Bacteria Ur Culture Indicated? Vol Urine Centrifuged Nasal Screen MRSA (PCR) Not detected Blood Type Antibody Screen PFSH Medical History Postoperative hemorrhage Male hematocele Positive FIT (fecal immunochemical test) BPH w urinary obs/LUTS Left hydrocele Arthritis Hearing loss Mumps Measles DM type 2 with diabetic dyslipidemia Venous insufficiency Severe obesity (BMI >= 40) Psoriasis Left acoustic neuroma Mixed hyperlipidemia Surgical History History of hydrocelectomy Hx of circumcision Hx of appendectomy Family History Father Hypertension Mother Hypertension Brother Hypertension Social History marital status: household members: none Smoking Status: Never smoker alcohol intake: current substance use type: does not use caffeine: Yes Assessment & Plan Assessment & Plan narrative: 1. Acute atrial fibrillation with RVR, present on admission and improved. 2. NSTEMI, likely tachycardia mediated vs coronary occlusion. Present on admission improved. Troponin is peaked. He denies chest pain or dyspnea. 3. Recent hydrocelectomy complicated with postop hematocele and scrotal bleeding, present on admission and stable. Drain in place. 4. Chronic hypertension present on admission and stable. 5. Type 2 diabetes, diet controlled present on admission and stable. PLAN: -wean diltiazem drip to metoprolol b.i.d.. -metoprolol tartrate 50 mg bid -hold losartanl and amlodipine -cont ASA 81 mg qd -cont alfuzosin for BPH -cont scrotal drain per urology -trend troponin -TSH -ECHO, completed with read pending. -stop ASA and start oral anticoagulation once urological issues with bleeding have resolved -he will need risk stratification at some point likely a Lexiscan. Likely discharge on December 15.
[2023-12-15] MEDS: ACETAMINOPHEN 325 MG TABLET 650 MG PO ×2 (15:10→21:32)
--- NOTE | 2023-12-15 15:32 | CM.DANOTE ---
Initial DCP Assessment Note Pt is a 78 yo male, resident of [place], recently admitted for post operative bleeding after initial hydrocele surgery in the beginning of the month, returns with NSTEMI. PCP: Kevin Islas Payer: Ashleigh WILLIS Reviewed chart, pt discussed in multidisciplinary rounds this morning. Patient is active, indp in all aspects at baseline. Patient has a scrotal drain per urology. No barriers identified at this time to patient's safe discharge home w/family to assist; close outpatient f/u recommended. CM team will plan to follow closely in case any DC needs or concerns arise. MAICO Willis Discharge Planning/Care Management CM Discharge Assessment Start: 12/15/23 15:29 Freq: Status: Active Protocol: Document 12/15/23 15:29 LYNDA (Rec: 12/15/23 15:31 LYNDA [id number]) Discharge Planning Assessment Assigned Gin Clerk MAICO Sanchez DPOA/Assigned Designee Name brother Quarles Contact Information [phone] Advance Directives? Yes Advance Directives on File Yes History Provided By Medical Record Has Patient been admitted in last 30 Yes days? Comment Here 12/10-12/11 Prior Living Arrangements House Household Members none Type of transporation used prior to Drives own vehicle admit Independent with ADL's Yes Is patient alert and oriented? Yes Barriers to Discharge No Discharge Plan Home Transportation Arrangement Not yet identified, although he does have a local friend listed in contacts. Referrals Initiated None needed
[2023-12-16] VITALS (45 sets, daily range): BP systolic 118–156; BP diastolic 71–105; PULSE 82–139; RESP 13–36; TEMP 36.4–36.6; O2SAT 94–97
--- NOTE | 2023-12-16 07:33 | P.PN_ITS ---
Subjective Subjective Interval history: He remains in AFib with poor rate control despite oral metoprolol. He would evidence of NSTEMI as well. No known history of previous AF or CAD. He is multiple cardiac risk factors. Subjective: He is doing well. No chest pain, dyspnea, or palpitations. Some scrotal pain but improved. He is scrotal drain in place. He remains tachycardic. Echo revealed moderate aortic stenosis. He has no history of cardiac problems before this encounter. Exam Vital Signs (past 8 hours): - 12/16/23 00:00 12/16/23 00:08 12/16/23 00:08 Temperature Pulse Rate 104 H 101 H Respiratory Rate 15 15 Blood Pressure 146/93 H Pulse Oximetry 95 Oxygen Flow Rate 12/16/23 00:20 12/16/23 01:00 12/16/23 02:00 Temperature 97.8 F Pulse Rate 96 H 101 H 116 H Respiratory Rate 15 13 19 Blood Pressure 146/93 H Pulse Oximetry 97 Oxygen Flow Rate 0 12/16/23 03:05 12/16/23 04:00 12/16/23 05:00 Temperature Pulse Rate 137 H 117 H 119 H Respiratory Rate 20 19 18 Blood Pressure Pulse Oximetry Oxygen Flow Rate 12/16/23 05:15 12/16/23 05:24 12/16/23 05:24 Temperature 97.6 F Pulse Rate 125 H 125 H Respiratory Rate 16 14 Blood Pressure 130/98 H 130/98 H Pulse Oximetry 97 Oxygen Flow Rate 0 Oxygen Delivery Method Room Air Oxygen Flow Rate 0 Narrative Exam Narrative: NAD, alert and oriented. Fluent speech. Lungs are clear, normal rate and effort. Heart is irregular, no murmur gallop or rub. Tachycardic. Abdomen is soft, non distended. Extremities are free of edema. Objective Imaging ECG: Radiologist's impression: 1) Normal left ventricular thickness, size, wall motion, and systolic function (EF 60-65%). 2) Normal right ventricular size and function. 3) There is mild to moderate mitral regurgitation. 4) There is mild to moderate aortic stenosis (valve area 1.3cm2, mean gradient 11mmHg, severity ratio 0.44). 5) No prior Echo available for comparison. Labs 12/14/23 10:40 12/14/23 10:40 [facility] Medical History Postoperative hemorrhage Male hematocele Positive FIT (fecal immunochemical test) BPH w urinary obs/LUTS Left hydrocele Arthritis Hearing loss Mumps Measles DM type 2 with diabetic dyslipidemia Venous insufficiency Severe obesity (BMI >= 40) Psoriasis Left acoustic neuroma Mixed hyperlipidemia Surgical History History of hydrocelectomy Hx of circumcision Hx of appendectomy Family History Father Hypertension Mother Hypertension Brother Hypertension Social History marital status: household members: none Smoking Status: Never smoker alcohol intake: current substance use type: does not use caffeine: Yes Assessment & Plan Assessment & Plan narrative: 1. Acute atrial fibrillation with RVR, present on admission and improved. 2. NSTEMI, likely tachycardia mediated vs coronary occlusion. Present on admission improved. Troponin is peaked. He denies chest pain or dyspnea. 3. Recent hydrocelectomy complicated with postop hematocele and scrotal bleeding, present on admission and stable. Drain in place. 4. Chronic hypertension present on admission and stable. 5. Type 2 diabetes, diet controlled present on admission and stable. 6. Moderate on ECHO, present on admission and active. PLAN: -load amiodarone drip today. Run infusion over 24 hours and then transitioned to oral. -notify Dr. Uribe of Urology of admission for his postop follow up. -metoprolol tartrate 50 mg bid, this will continue. -hold losartan and amlodipine, chronic medications. -cont ASA 81 mg qd, may consider anticoagulation for atrial fibrillation further from surgical issues. -cont alfuzosin for BPH -continue scrotal drain per urology -TSH 0.89 on 12/13. -not a great anticoagulation candidate given recent scrotal hematoma and bleeding. -stop ASA and start oral anticoagulation once urological issues with bleeding have resolved -he will need risk stratification at some point likely a Lexiscan. Likely discharge on December 16 or . .
[2023-12-16] MEDS: AMIODARONE 150 MG/100 ML 600 MG IV (07:57)
[2023-12-16] MEDS: AMIODARONE 360 MG/200 ML PIGGYBACK 33.33 MG IV (08:23)
[2023-12-16] MEDS: METOPROLOL IR 50 MG TABLET PO ×2 (08:30→21:15)
[2023-12-16] MEDS: ASPIRIN 81 MG CHEW TAB PO (08:30)
[2023-12-16] MEDS: ATORVASTATIN 20 MG TABLET PO (08:30)
--- NOTE | 2023-12-16 11:49 | CM.DPNOTE ---
DCP Cont Reviewed chart. Patient discussed in multidisciplinary rounds. amio drip today for rate control, patient is expected to remain admitted for an additional 24-48 hours. Plan remains discharge home w/close outpatient follow up. Patient is 5'7 252 lbs, has scrotal swelling, one person assist to the BSC. Patient may benefit from HH RN/OT/[employer]GE upon discharge of not back to PLOF CM team following clinical course closely JW
[2023-12-16] MEDS: AMIODARONE 360 MG/200 ML PIGGYBACK 16.7 MG IV (14:09)
[2023-12-16] MEDS: ACETAMINOPHEN 325 MG TABLET 650 MG PO (21:15)
[2023-12-17] VITALS (12 sets, daily range): BP systolic 108–159; BP diastolic 51–83; PULSE 86–102; RESP 13–24; TEMP 36.2–36.5; O2SAT 93–99
[2023-12-17] MEDS: AMIODARONE 180 MG/100 ML PIGGYBACK 16.7 MG IV (01:22)
[2023-12-17] MEDS: cephALEXin 250 MG CAPSULE PO (08:04)
[2023-12-17] MEDS: AMIODARONE 200 MG TABLET PO (08:04)
[2023-12-17] MEDS: ASPIRIN 81 MG CHEW TAB PO (08:34)
[2023-12-17] MEDS: ATORVASTATIN 20 MG TABLET PO (08:34)
[2023-12-17] MEDS: METOPROLOL IR 50 MG TABLET PO (08:34)
--- NOTE | 2023-12-17 09:30 | P.DS_ITS ---
History of Present Illness History of Present Illness Date Patient Seen: 12/17/23 Time Patient Seen: 07:30 Chief complaint: weakness/nausea Narrative: Date Patient Seen: 12/14/23 Time Patient Seen: 18:07 Chief complaint: weakness/nausea Narrative: 78-year-old male history of hypertension, dyslipidemia, chronic venous insufficiency, who is not on any daily anticoagulation who presents with complaint of diaphoresis, lightheadedness and tachycardia patient had a hydrocele surgery earlier this month on the 10 December returned with quite a bit of bleeding in the scrotum was admitted and taken to the OR. He was then discharged home on 12/[address] Pt woke this morning with feeling of pressure in his chest and heart racing. Then felt sweaty and lightheaded and slightly dyspneic after checking his blood pressure. In Ed noted to be tachycardic in 160's with afib rhythm. EKG personally reviewed and shows afib without ST abnormalities. Initial elevated troponin. He has not had ongoing chest pain or severe dyspnea. No fevers or chills. Still peeing blood small amount. Elev d-dimer but no P.E. on chest angiogram. Abd/pelvis CT with mod scrotal edema, otherwise unremarkable. Started on diltiazem drip in ED. Pt's brother and father both had CAD, bypasses in their 70's. Discharge Providers Provider Date of admission: 12/14/23 14:17 Discharge Date: 12/17/23 Primary care physician: Kevin Islas MD Consults: 12/14/23 14:34 Consult to Urology Routine Comment: Consulting Provider: Marcel Uribe Reason for consultation: s/p urological surgery, drain, admitted for afib rvr Discharge provider: Kevin Islas MD Summary Hospital Course Discharge Diagnosis: 1. Acute atrial fibrillation with RVR, present on admission and improved. 2. NSTEMI, likely tachycardia mediated vs coronary occlusion. Present on admission improved. Troponin is peaked. He denies chest pain or dyspnea. 3. Recent hydrocelectomy complicated with postop hematocele and scrotal bleeding, present on admission and stable. Drain in place. 4. Chronic hypertension present on admission and stable. 5. Type 2 diabetes, diet controlled present on admission and stable. 6. Moderate on ECHO, present on admission and active. Hospital Course: Chest x-ray: Limited single view radiograph with low lung volumes. No acute abnormality. Borderline enlarged heart. Abdomen pelvis CT: Moderate edema of the scrotum and peritesticular fluid. Hyperattenuating material in particular around the left testicle may represent small hematoma. A drain is present. Unable to assess for active bleeding on this single phase study. If further imaging is desired, consider repeat ultrasound. Chest CT angiography: No acute pulmonary embolism. No dense airspace disease. Trace left pleural effusion. Other findings as above. Echocardiogram: 1) Normal left ventricular thickness, size, wall motion, and systolic function (EF 60-65%). 2) Normal right ventricular size and function. 3) There is mild to moderate mitral regurgitation. 4) There is mild to moderate aortic stenosis (valve area 1.3cm2, mean gradient 11mmHg, severity ratio 0.44). 5) No prior Echo available for comparison. Narrative: The patient presented with atrial fibrillation postoperatively following hydrocelectomy complicated by hemorrhage. He was admitted, placed on an amiodarone infusion, with addition of diltiazem IV. His rate was adequately controlled and he was transitioned to oral metoprolol tartrate 50 mg twice daily. Losartan and amlodipine were withheld during the hospitalization, with losartan to resume at discharge. Dr. Uribe saw the patient during the hospitalization and recommended outpatient prophylactic oral antibiotics. Aspirin and oral anticoagulation were withheld with a plan to restart once urologic issues with bleeding have resolved. Status at Discharge Cognitive/behavioral status at discharge: oriented Functional status at discharge: independent ambulation Overall status at discharge: patient is back to baseline Time Spent with Patient Time spent: Greater than 30 minutes Exam Vital Signs (past 8 hours): - 12/17/23 02:00 12/17/23 02:00 12/17/23 03:00 Temperature Pulse Rate 86 94 H Respiratory Rate 16 19 Blood Pressure 108/69 136/76 Pulse Oximetry 99 97 Oxygen Delivery Method Oxygen Flow Rate 2 1 12/17/23 04:00 12/17/23 04:00 12/17/23 05:00 Temperature 97.5 F L Pulse Rate 99 H Respiratory Rate 19 Blood Pressure 116/77 131/78 Pulse Oximetry 93 Oxygen Delivery Method Oxygen Flow Rate 1 12/17/23 05:00 12/17/23 06:00 12/17/23 06:00 Temperature Pulse Rate 98 H 86 Respiratory Rate 18 17 Blood Pressure 134/78 Pulse Oximetry 95 94 Oxygen Delivery Method Oxygen Flow Rate 1 1 12/17/23 07:00 12/17/23 07:00 12/17/23 07:00 Temperature Pulse Rate 102 H Respiratory Rate 17 Blood Pressure 159/83 H Pulse Oximetry 95 Oxygen Delivery Method Room Air Oxygen Flow Rate 12/17/23 07:02 12/17/23 07:02 12/17/23 07:59 Temperature 97.2 F L Pulse Rate 97 H 100 H Respiratory Rate 13 14 Blood Pressure 130/66 Pulse Oximetry 95 94 Oxygen Delivery Method Oxygen Flow Rate 12/17/23 08:00 Temperature Pulse Rate Respiratory Rate Blood Pressure 122/82 Pulse Oximetry Oxygen Delivery Method Oxygen Flow Rate Oxygen Delivery Method Room Air Oxygen Flow Rate 1 GENERAL: This is a well-nourished, well-developed patient, in no apparent distress. HEAD: Atraumatic. Normocephalic. No temporal or scalp tenderness. EYES: Pupils equal round and reactive. Extraocular motions intact. No scleral icterus. No injection or drainage. ENT: Mucous membranes pink and moist. NECK: Trachea midline. No JVD, bruits or lymphadenopathy. Supple, nontender, no meningeal signs. CARDIOVASCULAR: Irregularly irregular rhythm without murmurs, gallops, or rubs. RESPIRATORY: Clear to auscultation. GASTROINTESTINAL: Abdomen soft, non-tender, nondistended. GENITOURINARY: Normal cirumcised male, large scrotal hematoma and swelling noted. EXTREMITIES: Trace edema. BACK: Nontender without deformity or crepitance. No flank tenderness. NEUROLOGIC: Alert, oriented, speech fluent, full upper and lower motor strength, no focal deficits evident. DERMATOLOGIC: No rashes or skin lesions. Objective Labs 12/14/23 10:40 12/14/23 10:40 [facility] Medical History Postoperative hemorrhage Male hematocele Positive FIT (fecal immunochemical test) BPH w urinary obs/LUTS Left hydrocele Arthritis Hearing loss Mumps Measles DM type 2 with diabetic dyslipidemia Venous insufficiency Severe obesity (BMI >= 40) Psoriasis Left acoustic neuroma Mixed hyperlipidemia Surgical History History of hydrocelectomy Hx of circumcision Hx of appendectomy Family History Father Hypertension Mother Hypertension Brother Hypertension Social History marital status: household members: none Smoking Status: Never smoker alcohol intake: current substance use type: does not use caffeine: Yes Discharge Assessment & Plan Assessment and Plan Plan of Treatment: Discharge home with outpatient primary care and urology follow-up within 1 week Discharge Plan Discharge Plan Patient Disposition: Home Provider Discharge Comment: Discharge home with friend Discharge orders & Medications Prescriptions: New metoprolol tartrate 50 mg Tablet 50 mg PO BID Qty: 60 0RF amiodarone 200 mg tablet 200 mg PO BID Qty: 60 0RF cephalexin 250 mg capsule 250 mg PO TID Qty: 21 0RF Continued atorvastatin 20 mg tablet 20 mg PO DAILY Qty: 90 3RF mecobalamin (vitamin B12) 5,000 mcg tablet,disintegrating 1 tab PO DAILY vitamin E (dl, acetate) 180 mg (400 unit) capsule 180 mg PO DAILY losartan 50 mg tablet 50 mg PO DAILY Qty: 90 3RF aspirin 81 mg Tablet,Chewable 81 mg PO DAILY multivitamin Tablet 1 tab PO DAILY alfuzosin [Uroxatral] 10 mg tablet extended release 24 hr 10 mg PO DAILY Qty: 90 3RF Rx Instructions: administer after the same meal each day Follow up/Referrals: Kevin Islas MD [Primary Care Provider] - Discharge Health Status Multidrug resistant organism: No MDRO Diet/Activity/Treatments Diet: Regular, Carb-consistent/Diabetic and Low-sodium Skin/Wound/Dressing Care Report to your healthcare provider any signs of infection, such as:: chills, fever, night sweats, increased pain, unusual drainage and unusual redness Visit Report/Discharge Packet Stand Alone Forms: Patient Portal/API, Stroke Signs & Symptoms Discharge Data Primary Care Provider: Kevin Islas V
--- NOTE | 2023-12-17 10:36 | CM.DPC ---
DCP Discharge Home Per MD, pt is his patient for PCP and confirmed pt is medically stable to discharge home today and confirmed no HH or DME needs at this time and pt in agreement to follow up closely with MD after discharge and pt lives alone independently but has close friends locally from the [employer] that will support pt at d/c and transport him home. No identified barriers to discharge. Per RN, provided discharge instructions and no further concerns noted. Plan: Patient to discharge back home to his apt in [facility] via friend POV and close outpt f/u with PCP and no further SW needs at this time. Rosio Pitts MSW
== END 2023-12-17 12:59 | disposition home or self-care (01) | DRG 988 ==
LOC: ED 14:14 → AC 14:17 → ICU 16:14
PROVIDERS: Admitting Provider Internal Medicine; Emergency Provider Emergency Medicine; PCP Internal Medicine; Referring Provider Emergency Medicine; Visit Provider Internal Medicine
DX: I21.4 Non-ST elevation (NSTEMI) myocardial infarction (principal); I97.191 Other postprocedural cardiac functional disturbances following other surgery; L76.22 Postprocedural hemorrhage of skin and subcutaneous tissue following other procedure; N13.8 Other obstructive and reflux uropathy; I48.91 Unspecified atrial fibrillation; I10 Essential (primary) hypertension; E11.9 Type 2 diabetes mellitus without complications; I35.0 Nonrheumatic aortic (valve) stenosis; E78.5 Hyperlipidemia, unspecified; Z98.890 Other specified postprocedural states; N43.3 Hydrocele, unspecified; N50.1 Vascular disorders of male genital organs; N40.1 Benign prostatic hyperplasia with lower urinary tract symptoms; E11.69 Type 2 diabetes mellitus with other specified complication; N50.89 Other specified disorders of the male genital organs
CPT/HCPCS: 36415; 71045; 71275; 74177; 76870; 80048; 80053; 81001; 82550; 82962; 83036; 83605; 83735; 83880; 84145; 84443; 84484; 85014; 85018; 85025; 85379; 86850; 86900; 86901; 87040; 87797; 93005; 93306; 93975; 96365; 96366; 96374; 96376; 99284; 99285; 99291; G0378; C9290; J0136; J0171; J0282; J0690; J1100; J1170; J2405; J2704; J3010; Q9967

== ENCOUNTER → 2024-01-06 13:49 | Outpatient (CLI) | payer OTHER, SELFPAY ==
[2023-12-14 17:28] VITALS: BMI 39.1
[2024-01-06 14:46] LABS: Mean Corpuscular HGB Conc 33.3 % (30-36); Mean Corpuscular Hemoglobin 29.4 PG (26-34); Mean Corpuscular Volume 88.3 fL (80-100); Platelet Count 232 X10^3/uL (150-400); Red Blood Cell Count 3.73 X10^6/uL (4.5-5.9); Red Cell Distribution Width 13.5 % (11.6-14.8); White Blood Cell Count 8.8 X10^3/uL (4.5-11.0)
[2024-01-06 15:01] LABS: Blood Urea Nitrogen 17 mg/dL (9-20); Calcium 8.4 mg/dL (8.4-10.2); Carbon Dioxide 31 mmol/L (22-32); Chloride 102 mmol/L (98-107); Estimated Glomerular Filt Rate > 60 mL/min (>60); Glucose 149 mg/dL (80-110); HEMOLYSIS 30 (0-50); Potassium 4.1 mmol/L (3.4-5.1); Sodium 138 mmol/L (137-145)
== END ==
PROVIDERS: PCP Internal Medicine; Referring Provider Internal Medicine; Visit Provider Internal Medicine
DX: I50.31 Acute diastolic (congestive) heart failure (principal)
CPT/HCPCS: 36415; 80048; 85027

== ENCOUNTER 2024-01-25 21:19 | Emergency (ER) | payer OTHER, SELFPAY ==
[2023-12-14 17:28] VITALS: BMI 39.1
[2024-01-25] VITALS (15 sets, daily range): BP systolic 104–144; BP diastolic 56–86; PULSE 67–143; RESP 12–24; TEMP 36.7; O2SAT 83–99; BMI 39.1
--- NOTE | 2024-01-25 21:30 | DI.RAD.S_ITS ---
PROCEDURE: XR CHEST 1V INDICATIONS: Atrial fibrillation TECHNIQUE: One view of the chest was acquired. COMPARISON: [facility], CR, XR CHEST 1V, 12/14/2023, 10:50. FINDINGS: Surgical changes and devices: None. Lungs and pleura: Lungs are clear. No pleural effusions or pneumothorax. Mediastinum: Mediastinal contours appear normal. Heart size is normal. Bones and chest wall: No suspicious bony lesions. Overlying soft tissues appear unremarkable. IMPRESSION: No acute cardiopulmonary abnormality is seen. Approved by: Ynes Bird M.D.,Ph.D. on 01/25/2024 at 22:11
[2024-01-25 21:46] LABS: Add Manual Diff / Slide Review NO; Basophils Absolute Auto 0 /uL (0-100); Basophils Percent Auto 0.4 % (0-2); Eosinophils Absolute Auto 400 /uL (0-450); Eosinophils Percent Auto 4.4 % (2-4); Hematocrit 36.5 % (41-53); Hemoglobin 12.2 g/dL (13.5-17.5); Lymphocytes Absolute Auto 1800 /uL (1100-4500); Lymphocytes Percent Auto 18.5 % (25-40); Mean Corpuscular HGB Conc 33.4 % (30-36); Mean Corpuscular Hemoglobin 28.4 PG (26-34); Monocytes Absolute Auto 900 /uL (0-900); Monocytes Percent Auto 9.5 % (3-14); Neutrophils Absolute Auto 6400 /uL (1500-7000); Neutrophils Percent Auto 67.2 % (50-75); Platelet Count 287 X10^3/uL (150-400); Red Blood Cell Count 4.29 X10^6/uL (4.5-5.9); Red Cell Distribution Width 14.4 % (11.6-14.8); White Blood Cell Count 9.5 X10^3/uL (4.5-11.0)
--- NOTE | 2024-01-25 21:51 | ED.ARRPALP ---
HPI - Arrhythmia/Palpitations General Chief Complaint: Arrhythmia/Palpitations Stated Complaint: HR high Time Seen by Provider: 01/25/24 21:23 Source: patient Mode of arrival: Ambulatory History of Present Illness HPI narrative: Patient is a 78-year-old male. Has had a prior history of atrial fibrillation with RVR requiring an admission to the hospital. He converted with rate control. He has been on amlodipine and metoprolol and also amiodarone. He stated that several days ago he completed the course of amiodarone. He is here for evaluation of palpitations and feeling like his heart is beating fast. He denies chest pain. No shortness of breath. No lightheadedness. He stated that his symptoms started within the past couple hours although he did state that he did not feel well all day today. He has not on anticoagulation. During his last episode of AFib it was during a postoperative time that was complicated by postoperative bleeding so that isn't was made not to put him on anticoagulation because of this. He does have a note from his primary care doctor from 01/20/2024 that states he was in sinus rhythm during that visit. Related Data Home Medications Medication Instructions Recorded Confirmed aspirin 81 mg chewable tablet 81 mg PO DAILY 07/05/19 01/20/24 multivitamin 1 tab PO DAILY 11/12/21 01/20/24 mecobalamin (vitamin B12) 5,000 1 tab PO DAILY 07/12/23 01/20/24 mcg disintegrating tablet vitamin E (dl, acetate) 180 mg 180 mg PO DAILY 07/12/23 01/20/24 (400 unit) capsule amlodipine 5 mg tablet 5 mg PO BID 12/23/23 01/20/24 Previous Rx's Medication Instructions Recorded losartan 50 mg tablet 50 mg PO DAILY #90 tabs 07/12/23 alfuzosin 10 mg tablet,extended 10 mg PO DAILY #90 tabs 09/29/23 release 24 hr (Uroxatral) amiodarone 200 mg tablet 200 mg PO BID #60 tabs 12/17/23 metoprolol tartrate 50 mg tablet 50 mg PO BID #60 tabs 12/17/23 atorvastatin 20 mg tablet 20 mg PO DAILY #90 tabs 01/11/24 metolazone 5 mg tablet 5 mg PO DAILY #10 tabs 01/12/24 furosemide 20 mg tablet 40 mg (2 x 20 mg) PO DAILY #60 tabs 01/20/24 Allergies Allergy/AdvReac Type Severity Reaction Status Date / Time No Known Drug Allergies Allergy Verified 01/25/24 21:35 Review of Systems Review of Systems ROS Unobtainable: All systems reviewed & are unremarkable except as noted in HPI and below Patient History Medical History Diastolic CHF, acute Postop check Postoperative anemia Paroxysmal atrial fibrillation Male hematocele Positive FIT (fecal immunochemical test) BPH w urinary obs/LUTS Hearing loss Mumps Measles DM type 2 with diabetic dyslipidemia Venous insufficiency Severe obesity (BMI >= 40) Psoriasis Left acoustic neuroma Mixed hyperlipidemia Surgical History History of hydrocelectomy Hx of circumcision Hx of appendectomy Family History Father Hypertension Mother Hypertension Brother Hypertension Social History marital status: household members: none Smoking Status: Never smoker alcohol intake: current substance use type: does not use caffeine: Yes Smoking Status: Never smoker alcohol intake frequency: a few times a month Substance Use Type: does not use Exam Initial Vital Signs Initial Vital Signs: Vital Signs Temperature 98.0 F 01/25/24 21:22 Pulse Rate 128 H 01/25/24 21:22 Respiratory Rate 20 01/25/24 21:22 Blood Pressure 144/86 H 01/25/24 21:22 Pulse Oximetry 97 01/25/24 21:22 Oxygen Delivery Method Room Air 01/25/24 21:22 Const General: cooperative, comfortable and No ill appearing [facility] Head: normal to inspection and normocephalic Resp Effort & Inspection: normal respiratory effort Auscultation: clear to auscultation bilaterally Cardio Rate: tachycardic Rhythm: abnormal rhythm GI Inspection: normal to inspection and non-distended Skin General: no rashes or lesions noted Neuro General: patient alert, patient awake, patient oriented x3 and moves all extremities Speech: speech normal Extrem General: normal to inspection, capillary refill normal and No edema Procedures Cardioversion Consent Signed: Yes Indication: Atrial fibrillation Stability: Stable Number of attempts (shocks): 2 Joules used: 150 and 200 Cardiac rhythm post-cardioversion: Sinus rhythm Procedural Sedation Consent signed: Yes Time out performed: Yes Indication: cardioversion ASA Class: III Mallampati Airway Classification: Class II Preparation: monitoring coordinator applied, pulse oximeter, capnometry used, supplemental O2 applied, suction/airway equipment at bedside and IV secured Fentanyl: IV Fentanyl dose (mcg): 12 IV Propofol dose (mg): 70 Intraservice time/total sedation time (min): 15 ED Sedation Level: Moderate (Concious) Patient Tolerated Procedure: Well Complications: hypoventilation Interventions: Airway repositioned, Assist by BVM and Oxygen applied Course Orders Ordered: ED Orders 01/25/24 21:30 XR chest 1V Stat EKG-12 Lead Stat 01/25/24 21:35 Complete Blood Count AUTO DIFF Stat Comprehensive Metabolic Panel Stat Lipase Stat Magnesium Stat Troponin & CK Cardiac Panel Stat 01/25/24 22:43 EKG-12 Lead Stat Discontinued Medications Fentanyl (Fentanyl 100 Mcg/2 Ml Inj) 12.5 mcg IV NOW ONE Stop: 01/25/24 21:52 Last Admin: 01/25/24 22:34 Dose: 12.5 mcg Documented By: JOSSY Sodium Chloride (Normal Saline 0.9%) 1,000 mls @ 125 mls/hr IV CONT JULIO Last Infusion: 01/25/24 23:40 Dose: Infused Documented By: Admin: 01/25/24 22:34 Dose: 125 mls/hr Documented By: JOSSY Propofol (Propofol 200 Mg/20 Ml Vial) 200 mg IV NOW ONE Stop: 01/25/24 21:52 Last Admin: 01/25/24 22:36 Dose: 70 mg Documented By: JOSSY Vital Signs Vital signs: Vital Signs - 8 hr 01/25/24 21:22 01/25/24 21:30 01/25/24 22:00 Temperature 98.0 F Pulse Rate 128 H 136 H 143 H Respiratory Rate 20 17 16 Blood Pressure 144/86 H 137/77 144/77 H Pulse Oximetry 97 98 95 Oxygen Delivery Method Room Air Room Air Room Air Oxygen Flow Rate 01/25/24 22:30 01/25/24 22:35 01/25/24 22:38 Temperature Pulse Rate 131 H 138 H 124 H Respiratory Rate 12 14 17 Blood Pressure 140/72 142/73 H 113/59 L Pulse Oximetry 95 95 83 L Oxygen Delivery Method Room Air Room Air Oxygen Flow Rate 15 01/25/24 22:40 01/25/24 22:43 01/25/24 22:45 Temperature Pulse Rate 72 72 71 Respiratory Rate 18 16 18 Blood Pressure 109/70 114/58 L 104/58 L Pulse Oximetry 99 98 96 Oxygen Delivery Method Oxygen Flow Rate 15 01/25/24 22:48 01/25/24 22:50 01/25/24 22:55 Temperature Pulse Rate 73 72 72 Respiratory Rate 24 19 12 Blood Pressure 104/57 L 106/56 L Pulse Oximetry 94 95 Oxygen Delivery Method Oxygen Flow Rate 01/25/24 23:00 01/25/24 23:05 01/25/24 23:10 Temperature Pulse Rate 68 67 67 Respiratory Rate 12 16 12 Blood Pressure 109/57 L 111/56 L 119/59 L Pulse Oximetry 94 95 95 Oxygen Delivery Method Room Air Oxygen Flow Rate MDM - Arrhythmia/Palpitations Medical Records Attestation: I reviewed the patient's medical records. Lab Data Attestation: I reviewed the patient's lab results. 01/25/24 21:35 01/25/24 21:35 Labs: Lab Results 01/25/24 Range/Units 21:35 WBC 9.5 (4.5-11.0) X10^3/uL RBC 4.29 L (4.5-5.9) X10^6/uL Hgb 12.2 L (13.5-17.5) g/dL Hct 36.5 L (41-53) % MCV 85.0 (80-100) fL MCH 28.4 (26-34) PG MCHC 33.4 (30-36) % RDW 14.4 (11.6-14.8) % Plt Count 287 (150-400) X10^3/uL Neut % (Auto) 67.2 (50-75) % Lymph % (Auto) 18.5 L (25-40) % [place] % (Auto) 9.5 (3-14) % Eos % (Auto) 4.4 H (2-4) % Baso % (Auto) 0.4 (0-2) % Neut # (Auto) 6400 (2625-0625) /uL Lymph # (Auto) 1800 (8460-0531) /uL [place] # (Auto) 900 (0-900) /uL Eos # (Auto) 400 (0-450) /uL Baso # (Auto) 0 (0-100) /uL Sodium 137 (137-145) mmol/L Potassium 3.2 L (3.4-5.1) mmol/L Chloride 96 L (98-107) mmol/L Carbon Dioxide 35 H (22-32) mmol/L BUN 25 H (9-20) mg/dL Creatinine 1.18 (0.66-1.25) mg/dL Estimated GFR > 60 (>60) mL/min BUN/Creatinine Ratio 21.2 (6-22) Glucose 227 H (80-110) mg/dL Calcium 9.5 (8.4-10.2) mg/dL Magnesium 1.7 (1.6-2.3) mg/dL Total Bilirubin 0.7 (0.2-1.3) mg/dL AST 25 (17-59) IU/L ALT 19 (<50) IU/L Alkaline Phosphatase 62 (38-126) U/L Total Creatine Kinase 58 (55-170) U/L Troponin I < 0.012 (0.01-0.034) ng/mL Total Protein 7.5 (6.3-8.2) g/dL Albumin 4.3 (3.5-5.0) g/dL Globulin 3.2 (1.7-4.1) g/dL Albumin/Globulin Ratio 1.3 (1.0-2.8) Lipase 89 (23-300) U/L Imaging Data Chest x-ray: Radiologist's Impresson: PROCEDURE: XR CHEST 1V INDICATIONS: Atrial fibrillation TECHNIQUE: One view of the chest was acquired. COMPARISON: [facility], , XR CHEST 1V, 12/14/2023, 10:50. FINDINGS: Surgical changes and devices: None. Lungs and pleura: Lungs are clear. No pleural effusions or pneumothorax. Mediastinum: Mediastinal contours appear normal. Heart size is normal. Bones and chest wall: No suspicious bony lesions. Overlying soft tissues appear unremarkable. IMPRESSION: No acute cardiopulmonary abnormality is seen. ECG Data Attestation: I personally reviewed and interpreted this ECG as follows: Interpretation: Presentation EKG Atrial fibrillation Ventricular rate 124 Normal axis Normal QRS Normal QTC Nonspecific ST T wave changes Post cardioversion EKG Sinus rhythm Ventricular rate is [address] T wave changes MDM Narrative Medical decision making narrative: Patient does have history of AFib. It appears that he was in sinus rhythm approximately 6 days ago during his primary doctor's visit. He stated that he felt like his heart started beating fast within the past 6 hours. This is different from the last time that he had AFib when the onset was uncertain. I discussed with him the risks and benefits of rate control versus rhythm control. We discussed cardioversion. After this discussion the patient opted for cardioversion. He was sedated and was successfully cardioverted as described above. I had a long discussion with him afterwards regarding anticoagulation. He was not placed on anticoagulation during his last episode because he had a complication of postoperative bleeding during that time. This has been 1 month ago. Patient would like to hold on starting any anticoagulation for now and calling his primary care doctor to discuss this. Patient understands the risks of AFib and stroke. Patient is now ambulatory and feels much better with a heart rate in the 70s. He was not hypotensive. Will discharge patient home to follow-up with his primary doctor. Discharge Plan Departure Patient Disposition: Home Clinical Impression: Atrial fibrillation Instructions: DI for Cardioversion Activity Restrictions/Additional Instructions: Continue to take all of your medications as directed and keep all of your scheduled medical appointments. Recommend that you contact your primary care doctor's office tomorrow when they open to discuss your follow-up and also the use of anticoagulation. Return to the emergency department for new symptoms. Prescriptions: No Action amiodarone 200 mg tablet 200 mg PO BID Qty: 60 0RF metoprolol tartrate 50 mg tablet 50 mg PO BID Qty: 60 0RF atorvastatin 20 mg tablet 20 mg PO DAILY Qty: 90 3RF mecobalamin (vitamin B12) 5,000 mcg tablet,disintegrating 1 tab PO DAILY vitamin E (dl, acetate) 180 mg (400 unit) capsule 180 mg PO DAILY losartan 50 mg tablet 50 mg PO DAILY Qty: 90 3RF amlodipine 5 mg tablet 5 mg PO BID metolazone 5 mg tablet 5 mg PO DAILY Qty: 10 0RF furosemide 20 mg tablet 40 mg PO DAILY Qty: 60 0RF aspirin 81 mg Tablet,Chewable 81 mg PO DAILY multivitamin Tablet 1 tab PO DAILY alfuzosin [Uroxatral] 10 mg tablet extended release 24 hr 10 mg PO DAILY Qty: 90 3RF Rx Instructions: administer after the same meal each day Referrals: Kevin Islas MD [Primary Care Provider] - Stand Alone Forms: Patient Portal/API
[2024-01-25 22:09] LABS: Alanine Aminotransferase 19 IU/L (<50); Albumin 4.3 g/dL (3.5-5.0); Albumin Globulin Ratio 1.3 (1.0-2.8); Alkaline Phosphatase 62 U/L (38-126); Aspartate Aminotransferase 25 IU/L (17-59); BUN Creatinine Ratio 21.2 (6-22); Bilirubin Total 0.7 mg/dL (0.2-1.3); Blood Urea Nitrogen 25 mg/dL (9-20); Calcium 9.5 mg/dL (8.4-10.2); Carbon Dioxide 35 mmol/L (22-32); Chloride 96 mmol/L (98-107); Creatine Kinase 58 U/L (55-170); Estimated Glomerular Filt Rate > 60 mL/min (>60); Globulin 3.2 g/dL (1.7-4.1); Glucose 227 mg/dL (80-110); HEMOLYSIS < 15 (0-50); Lipase 89 U/L (23-300); Magnesium 1.7 mg/dL (1.6-2.3); Potassium 3.2 mmol/L (3.4-5.1); Sodium 137 mmol/L (137-145); Total Protein 7.5 g/dL (6.3-8.2)
[2024-01-25 22:20] LABS: Troponin I < 0.012 ng/mL (0.01-0.034)
[2024-01-25] MEDS: fentaNYL 100 MCG/2 ML INJ 12.5 MCG IV (22:34)
[2024-01-25] MEDS: SODIUM CHLORIDE 0.9% 1,000 ML 125 ML IV (22:34)
[2024-01-25] MEDS: propofoL 200 MG/20 ML VIAL IV (22:36)
== END 2024-01-25 23:57 | disposition home or self-care (01) ==
PROVIDERS: Emergency Provider Emergency Medicine; PCP Internal Medicine
DX: I48.91 Unspecified atrial fibrillation (principal); Z79.899 Other long term (current) drug therapy
CPT/HCPCS: 36415; 71045; 80053; 82550; 83690; 83735; 84484; 85025; 92960; 93005; 93010; 96360; 99152; 99285; J2704; J3010

== ENCOUNTER 2024-04-04 17:30 | Emergency (ER) | payer OTHER, SELFPAY ==
[2023-12-14 17:28] VITALS: BMI 39.1
[2024-04-04] VITALS (11 sets, daily range): BP systolic 161–185; BP diastolic 73–86; PULSE 66–78; RESP 12–19; TEMP 36.5; O2SAT 92–97; BMI 39.1
--- NOTE | 2024-04-04 17:48 | DI.RAD.S_ITS ---
PROCEDURE: XR CHEST 1V INDICATIONS: chest pain TECHNIQUE: One view of the chest was acquired. COMPARISON: [facility], CT, CT ABDOMEN PELVIS W CON, 12/14/2023, 12:45. [facility], CR, XR CHEST 1V, 01/25/2024, 21:29. [facility], CR, XR CHEST 1V, 12/14/2023, 10:50. FINDINGS: Surgical changes and devices: None. Lungs and pleura: Lungs are clear. No pleural effusions or pneumothorax. Mediastinum: Mediastinal contours appear normal. Heart size is enlarged. Bones and chest wall: No suspicious bony lesions. Overlying soft tissues appear unremarkable. IMPRESSION: No acute cardiopulmonary abnormality is seen. Suspect cardiomegaly. Alternately, this could be due to prominent pericardial fat pad. Dictated by: Chicho Mejia M.D. on 04/04/2024 at 19:01 Approved by: Chicho Mejia M.D. on 04/04/2024 at 19:03
[2024-04-04 18:22] LABS: Add Manual Diff / Slide Review NO; Basophils Absolute Auto 100 /uL (0-100); Basophils Percent Auto 0.7 % (0-2); Eosinophils Absolute Auto 400 /uL (0-450); Hematocrit 40.3 % (41-53); Hemoglobin 13.4 g/dL (13.5-17.5); Lymphocytes Absolute Auto 1800 /uL (1100-4500); Lymphocytes Percent Auto 19.8 % (25-40); Mean Corpuscular HGB Conc 33.4 % (30-36); Mean Corpuscular Hemoglobin 28.3 PG (26-34); Mean Corpuscular Volume 84.9 fL (80-100); Monocytes Absolute Auto 700 /uL (0-900); Monocytes Percent Auto 8.3 % (3-14); Neutrophils Absolute Auto 6100 /uL (1500-7000); Neutrophils Percent Auto 67.2 % (50-75); Platelet Count 271 X10^3/uL (150-400); Red Blood Cell Count 4.75 X10^6/uL (4.5-5.9); Red Cell Distribution Width 16.7 % (11.6-14.8)
[2024-04-04 18:25] LABS: INR 1.2 (0.9-1.3)
[2024-04-04 18:27] LABS: PTT Partial Thromboplastin Tim 34 SECONDS (25.1-36.5)
[2024-04-04 18:30] LABS: Alanine Aminotransferase 26 IU/L (<50); Albumin 4.6 g/dL (3.5-5.0); Albumin Globulin Ratio 1.4 (1.0-2.8); Alkaline Phosphatase 55 U/L (38-126); Aspartate Aminotransferase 33 IU/L (17-59); BUN Creatinine Ratio 21.6 (6-22); Bilirubin Total 0.7 mg/dL (0.2-1.3); Blood Urea Nitrogen 21 mg/dL (9-20); Calcium 9.2 mg/dL (8.4-10.2); Carbon Dioxide 30 mmol/L (22-32); Chloride 100 mmol/L (98-107); Creatine Kinase 73 U/L (55-170); Estimated Glomerular Filt Rate > 60 mL/min (>60); Globulin 3.2 g/dL (1.7-4.1); Glucose 121 mg/dL (80-110); HEMOLYSIS 45 (0-50); Lipase 32 U/L (23-300); Magnesium 2.1 mg/dL (1.6-2.3); Potassium 3.7 mmol/L (3.4-5.1); Sodium 139 mmol/L (137-145); Total Protein 7.8 g/dL (6.3-8.2)
[2024-04-04 18:41] LABS: NT-proBNP (BNP-Adult 18+) 89 pg/mL (<450); Troponin I < 0.012 ng/mL (0.01-0.034)
--- NOTE | 2024-04-04 19:14 | EKG_ITS ---
[place] [id number] [place] [id number] Test Date: 2024-04-04 Pat Name: Don Roberts Department: Located Within [facility] Room: Gender: Male Resident Services Manager: LUIS FERNANDO : 1945 Requested By: Order Number: [id number] Reading MD: Measurements Intervals [place] Rate: 71 P: 76 [place]: 190 QRS: 68 QRSD: 102 T: 66 QT: 456 QTc: 495 Interpretive Statements Normal sinus rhythm Cannot rule out Anterior infarct , age undetermined Electronically Signed On 04-10-2024 9:09:45 PDT by Santosh Menjivar
--- NOTE | 2024-04-04 19:30 | ED.GENADULT ---
HPI - General Adult General Chief complaint: Hypertension Stated complaint: HBP Time Seen by Provider: 04/04/24 18:02 Source: patient Mode of arrival: Ambulatory History of Present Illness HPI narrative: Patient is a 78-year-old male. Has a history of paroxysmal atrial fibrillation. Is on medications for this. Is on anticoagulation. Also has a history of high blood pressure. States earlier today he was outside doing some work. Who stated that he started to not feel very well. No palpitations. He was sitting at his desk when he felt somewhat lightheaded. Took his blood pressure and it was elevated. No shortness of breath. Does have lower extremity swelling but this is normal for him. He did have some right-sided chest discomfort in the past 24 hours but nothing currently. He has taken his medications as directed. Related Data Home Medications Medication Instructions Recorded Confirmed aspirin 81 mg chewable tablet 81 mg PO DAILY 07/05/19 02/28/24 multivitamin 1 tab PO DAILY 11/12/21 02/28/24 mecobalamin (vitamin B12) 5,000 1 tab PO DAILY 07/12/23 02/28/24 mcg disintegrating tablet vitamin E (dl, acetate) 180 mg 180 mg PO DAILY 07/12/23 02/28/24 (400 unit) capsule amlodipine 5 mg tablet 5 mg PO BID 12/23/23 02/28/24 Previous Rx's Medication Instructions Recorded losartan 50 mg tablet 50 mg PO DAILY #90 tabs 07/12/23 alfuzosin 10 mg tablet,extended 10 mg PO DAILY #90 tabs 09/29/23 release 24 hr (Uroxatral) metoprolol tartrate 50 mg tablet 50 mg PO BID #60 tabs 12/17/23 atorvastatin 20 mg tablet 20 mg PO DAILY #90 tabs 01/11/24 apixaban 5 mg tablet (Eliquis) 5 mg PO BID #180 tabs 01/31/24 amiodarone 200 mg tablet 200 mg PO DAILY #90 tabs 02/28/24 furosemide 20 mg tablet 40 mg (2 x 20 mg) PO DAILY #60 tabs 02/28/24 Allergies Allergy/AdvReac Type Severity Reaction Status Date / Time No Known Drug Allergies Allergy Verified 02/28/24 15:20 Review of Systems Review of Systems ROS Unobtainable: All systems reviewed & are unremarkable except as noted in HPI and below Patient History Medical History Benign essential tremor Chronic anticoagulation Diastolic CHF, acute Postoperative anemia Paroxysmal atrial fibrillation Male hematocele Positive FIT (fecal immunochemical test) BPH w urinary obs/LUTS Hearing loss [place]umps Measles DM type 2 with diabetic dyslipidemia Venous insufficiency Severe obesity (BMI >= 40) Psoriasis Left acoustic neuroma Mixed hyperlipidemia Surgical History History of hydrocelectomy Hx of circumcision Hx of appendectomy Family History Father Hypertension Mother Hypertension Brother Hypertension Social History marital status: household members: none Smoking Status: Never smoker alcohol intake: current substance use type: does not use caffeine: Yes Smoking Status: Never smoker alcohol intake frequency: a few times a month Substance Use Type: does not use Exam Initial Vital Signs Initial Vital Signs: Vital Signs Temperature 97.7 F 04/04/24 17:37 Pulse Rate 73 04/04/24 17:37 Respiratory Rate 18 04/04/24 17:37 Blood Pressure 179/80 H 04/04/24 17:37 Pulse Oximetry 97 04/04/24 17:37 Oxygen Delivery Method Room Air 04/04/24 17:37 Const General: cooperative, comfortable and No ill appearing HENMT Head: normal to inspection and normocephalic Resp Effort & Inspection: normal respiratory effort Auscultation: clear to auscultation bilaterally Cardio Rate: regular rate Rhythm: regular rhythm Skin General: no rashes or lesions noted Neuro General: patient alert, patient awake and moves all extremities Extrem General: edema Course Orders Ordered: ED Orders 04/04/24 19:57 Troponin & CK Cardiac Panel Stat Discontinued Medications Aspirin (Aspirin 81 Mg Chew Tab) 324 mg PO NOW ONE Stop: 04/04/24 17:49 Last Admin: 04/04/24 21:06 Dose: Not Given Documented By: BONITA Vital Signs Vital signs: Vital Signs - 8 hr 04/04/24 19:30 04/04/24 19:30 04/04/24 19:41 Pulse Rate 68 Respiratory Rate 19 Blood Pressure 177/86 H 173/79 H Pulse Oximetry 95 Oxygen Delivery Method Room Air 04/04/24 19:41 08/20/24 20:00 04/04/24 20:00 Pulse Rate 78 71 Respiratory Rate 18 12 Blood Pressure 185/85 H Pulse Oximetry 95 Oxygen Delivery Method Room Air 04/04/24 20:13 04/04/24 20:13 04/04/24 20:30 Pulse Rate 71 67 Respiratory Rate 15 16 Blood Pressure 175/77 H Pulse Oximetry 95 95 Oxygen Delivery Method Room Air 04/04/24 20:31 04/04/24 20:31 04/04/24 21:00 Pulse Rate 66 69 Respiratory Rate 14 13 Blood Pressure 173/73 H Pulse Oximetry 94 96 Oxygen Delivery Method Room Air 04/04/24 21:01 04/04/24 21:01 Pulse Rate 72 Respiratory Rate 14 Blood Pressure 161/73 H Pulse Oximetry 94 Oxygen Delivery Method Medical Decision Making Lab Data Lab results reviewed: Yes I reviewed the patient's lab results. 04/04/24 18:08 04/04/24 18:08 Labs: Lab Results 04/04/24 04/04/24 Range/Units 18:08 19:57 WBC 9.0 (4.5-11.0) X10^3/uL RBC 4.75 (4.5-5.9) X10^6/uL Hgb 13.4 L (13.5-17.5) g/dL Hct 40.3 L (41-53) % MCV 84.9 (80-100) fL MCH 28.3 (26-34) PG MCHC 33.4 (30-36) % RDW 16.7 H (11.6-14.8) % Plt Count 271 (150-400) X10^3/uL Neut % (Auto) 67.2 (50-75) % Lymph % (Auto) 19.8 L (25-40) % [place] % (Auto) 8.3 (3-14) % Eos % (Auto) 4.0 (2-4) % Baso % (Auto) 0.7 (0-2) % Neut # (Auto) 6100 (5757-2927) /uL Lymph # (Auto) 1800 (3820-7153) /uL [place] # (Auto) 700 (0-900) /uL Eos # (Auto) 400 (0-450) /uL Baso # (Auto) 100 (0-100) /uL PT 14.0 H (9.4-12.5) SECONDS INR 1.2 (0.9-1.3) APTT 34 (25.1-36.5) SECONDS Sodium 139 (137-145) mmol/L Potassium 3.7 (3.4-5.1) mmol/L Chloride 100 (98-107) mmol/L Carbon Dioxide 30 (22-32) mmol/L BUN 21 H (9-20) mg/dL Creatinine 0.97 (0.66-1.25) mg/dL Estimated GFR > 60 (>60) mL/min BUN/Creatinine Ratio 21.6 (6-22) Glucose 121 H (80-110) mg/dL Calcium 9.2 (8.4-10.2) mg/dL Magnesium 2.1 (1.6-2.3) mg/dL Total Bilirubin 0.7 (0.2-1.3) mg/dL AST 33 (17-59) IU/L ALT 26 (<50) IU/L Alkaline Phosphatase 55 (38-126) U/L Total Creatine Kinase 73 83 (55-170) U/L Troponin I < 0.012 < 0.012 (0.01-0.034) ng/mL NT-Pro-B Natriuret Pep 89 (<450) pg/mL Total Protein 7.8 (6.3-8.2) g/dL Albumin 4.6 (3.5-5.0) g/dL Globulin 3.2 (1.7-4.1) g/dL Albumin/Globulin Ratio 1.4 (1.0-2.8) Lipase 32 (23-300) U/L Imaging Data Chest x-ray: Radiologist's Impression: PROCEDURE: XR CHEST 1V INDICATIONS: chest pain TECHNIQUE: One view of the chest was acquired. COMPARISON: [facility], CT, CT ABDOMEN PELVIS W CON, 12/14/2023, 12:45. [facility], CR, XR CHEST 1V, 01/25/2024, 21:29. [facility], CR, XR CHEST 1V, 12/14/2023, 10:50. FINDINGS: Surgical changes and devices: None. Lungs and pleura: Lungs are clear. No pleural effusions or pneumothorax. Mediastinum: Mediastinal contours appear normal. Heart size is enlarged. Bones and chest wall: No suspicious bony lesions. Overlying soft tissues appear unremarkable. IMPRESSION: No acute cardiopulmonary abnormality is seen. Suspect cardiomegaly. Alternately, this could be due to prominent pericardial fat pad ECG Data Attestation: I personally reviewed and interpreted this ECG as follows: Interpretation: Sinus rhythm Ventricular rate is 71 Normal [place] normal QRS Normal QTC No ST T wave changes MDM Narrative Medical decision making narrative: Patient is hypertensive but sinus rhythm on the EKG. Not in heart failure. Low suspicion for ACS. No signs of pulmonary edema. No headache. No indication of intracranial hemorrhage. Kidney function is unremarkable. I had a long discussion with him regarding his symptoms and his high blood pressure. Hold on making any changes to his medicines for now. Will discharge him home with return precautions and follow-up instructions and instructions to take his blood pressure at home. He was given return precautions. He expressed understanding and agreement. Discharge Plan Departure Patient Disposition: Home Clinical Impression: Hypertension Instructions: DI for High Blood Pressure Activity Restrictions/Additional Instructions: Continue to take all of your medications as directed. Take your blood pressure at home like we discussed. Keep all of your scheduled medical appointments. Return to the emergency department for new or worsening symptoms. Prescriptions: No Action metoprolol tartrate 50 mg tablet 50 mg PO BID Qty: 60 0RF atorvastatin 20 mg tablet 20 mg PO DAILY Qty: 90 3RF mecobalamin (vitamin B12) 5,000 mcg tablet,disintegrating 1 tab PO DAILY vitamin E (dl, acetate) 180 mg (400 unit) capsule 180 mg PO DAILY losartan 50 mg tablet 50 mg PO DAILY Qty: 90 3RF amlodipine 5 mg tablet 5 mg PO BID amiodarone 200 mg tablet 200 mg PO DAILY Qty: 90 3RF furosemide 20 mg tablet 40 mg PO DAILY Qty: 60 2RF Eliquis 5 mg tablet 5 mg PO BID Qty: 180 3RF aspirin 81 mg Tablet,Chewable 81 mg PO DAILY multivitamin Tablet 1 tab PO DAILY alfuzosin [Uroxatral] 10 mg tablet extended release 24 hr 10 mg PO DAILY Qty: 90 3RF Rx Instructions: administer after the same meal each day Referrals: Kevin Islas MD [Primary Care Provider] - Stand Alone Forms: Patient Portal/API
[2024-04-04 20:23] LABS: Creatine Kinase 83 U/L (55-170)
[2024-04-04 20:36] LABS: Troponin I < 0.012 ng/mL (0.01-0.034)
== END 2024-04-04 21:09 | disposition home or self-care (01) ==
PROVIDERS: Emergency Provider Emergency Medicine; PCP Internal Medicine
DX: I10 Essential (primary) hypertension (principal); R42 Dizziness and giddiness; R07.9 Chest pain, unspecified; Z79.01 Long term (current) use of anticoagulants; Z79.899 Other long term (current) drug therapy
CPT/HCPCS: 71045; 80053; 82550; 83690; 83735; 83880; 84484; 85025; 85610; 85730; 93005; 99283; 99284

== ENCOUNTER → 2024-09-07 10:12 | Outpatient (CLI) | payer MEDICARE, SELFPAY ==
[2023-12-14 17:28] VITALS: BMI 39.1
[2024-09-07 11:27] LABS: Hematocrit 43.5 % (41-53); Hemoglobin 14.7 g/dL (13.5-17.5); Mean Corpuscular HGB Conc 33.8 % (30-36); Mean Corpuscular Hemoglobin 30.1 PG (26-34); Mean Corpuscular Volume 89.1 fL (80-100); Platelet Count 286 X10^3/uL (150-400); Red Blood Cell Count 4.89 X10^6/uL (4.5-5.9); White Blood Cell Count 9.2 X10^3/uL (4.5-11.0)
[2024-09-07 11:43] LABS: Hemoglobin A1C% w Est Avg Glu 5.8 % (4.0-6.0)
[2024-09-07 12:03] LABS: Aspartate Aminotransferase 35 IU/L (17-59); BUN Creatinine Ratio 24.2 (6-22); Blood Urea Nitrogen 29 mg/dL (9-20); Calcium 9.3 mg/dL (8.4-10.2); Carbon Dioxide 30 mmol/L (22-32); Chloride 100 mmol/L (98-107); Cholesterol 149 mg/dL (140-199); Estimated Glomerular Filt Rate > 60 mL/min (>60); Glucose 109 mg/dL (80-110); HDL Cholesterol 52 mg/dL (40-60); HEMOLYSIS 18 (0-50); LDL Cholesterol Calculated 83 mg/dL (<100); Potassium 3.9 mmol/L (3.4-5.1); Sodium 139 mmol/L (137-145); Triglycerides 72 mg/dL (35-150)
[2024-09-07 12:31] LABS: Prostate Specific Antigen 0.378 ng/mL (0.10-4.00)
== END ==
PROVIDERS: PCP Internal Medicine; Referring Provider Internal Medicine; Visit Provider Internal Medicine
DX: E78.2 Mixed hyperlipidemia (principal); E11.69 Type 2 diabetes mellitus with other specified complication; N40.1 Benign prostatic hyperplasia with lower urinary tract symptoms; E78.5 Hyperlipidemia, unspecified; D64.9 Anemia, unspecified; N13.8 Other obstructive and reflux uropathy
CPT/HCPCS: 36415; 80048; 80061; 83036; 84153; 84450; 85027

== ENCOUNTER → 2024-11-28 14:56 | Outpatient (CLI) | payer MEDICARE, SELFPAY ==
[2023-12-14 17:28] VITALS: BMI 39.1
--- NOTE | 2024-11-28 14:58 | DI.NM.S_ITS ---
PROCEDURE: NM TRUONG PERF SPECT SINGLE STUDY Resting myocardial perfusion SPECT, with gated imaging and ejection fraction RADIOPHARMACEUTICAL: 25.2 mCi 99m-Tc sestamibi intravenously. INDICATIONS: PAROXYSMAL AFIB TECHNIQUE: Radiopharmaceutical was injected at rest. SPECT images were obtained. SPECT myocardial perfusion images were displayed in short axis, horizontal long axis, and vertical long axis views. Gated images were reviewed using [id number] software. COMPARISON: None. FINDINGS: Raw data: There is good tracer uptake by the myocardium. No significant motion artifacts. Left ventricle function: Gated images demonstrate left ventricle wall thickening. No segmental wall motion abnormalities. No transient ischemic dilation. Left ventricle resting end-diastolic volume is 125 mL. Left ventricle resting ejection fraction is 76%; normal values are above 45%. Myocardial perfusion: There is a mildly intense defect in the basal to mid inferior wall at rest. SRS 0. No stress images done as the patient cancelled the stress portion of the study. IMPRESSION: There is a mildly intense defect in the basal to mid inferior wall at rest that could be from diaphragmatic attenuation artifact or prior infarction. SRS 0. No stress or prone images done as the patient cancelled the stress portion of the study. Dictated by: Mesha Jackson MD on 12/20/2024 at 13:40 Approved by: Mesha Jackson MD on 12/20/2024 at 13:42
== END ==
PROVIDERS: PCP Internal Medicine; Referring Provider Internal Medicine; Visit Provider Internal Medicine
DX: I48.0 Paroxysmal atrial fibrillation (principal)
CPT/HCPCS: 78451; A9502

== ENCOUNTER → 2025-02-06 13:04 | Outpatient (CLI) | payer MEDICARE, SELFPAY ==
[2023-12-14 17:28] VITALS: BMI 39.1
--- NOTE | 2025-02-06 13:11 | DI.NM.S_ITS ---
PROCEDURE: NM TRUONG PERF SPECT R&S PHARM Rest and pharmacological stress myocardial perfusion SPECT with gated imaging and ejection fraction RADIOPHARMACEUTICAL: 25.9 mCi Tc-99m tetrafosmin IV at rest and 26.7 mCi Tc-99m tetrafosmin IV at peak effect of pharmacological stress. Xtg-epd-[id number] was performed. INDICATIONS: paroxysmal atrial fibrillation PQRS ATTESTATIONS: Measure 322 - Is this imaging test primarily performed on a low-risk surgery patient for preoperative evaluation within 30 days preceding their low-risk non-cardiac surgery? Low-risk surgery is defined as cardiac or myocardial infarction less than 1%, including (but not limited to) endoscopic procedures, superficial procedures, cataract surgery, and excisional breast surgery: Answer: No Measure 323 - Is this imaging test performed primarily for the monitoring of an asymptomatic patient who had percutaneous coronary intervention on the visit date or within 2 years of the visit date? Answer: No Measure 324 - Is this imaging test performed primarily for the initial detection and risk assessment on an asymptomatic, low coronary heart disease patient? Low CHD risk definition = clinicians should consider the maximum number of available patient factors used to estimate risk based on [place] (ATP III criteria), typically age, gender, diabetes, smoking status, and use of blood pressure medication, and integrate age appropriate estimates for missing elements, such as LDL or standard blood pressure. Answer: No TECHNIQUE: Radiopharmaceutical was injected at peak stress test, and also at rest. SPECT images were obtained. SPECT myocardial perfusion images were displayed in short axis, horizontal long axis, and vertical long axis views. Gated images were reviewed using [employer] software. COMPARISON: None. CARDIAC STRESS: A pharmacologic stress test was performed under the supervision of an attending staff, using an infusion of 0.4 mg of Lexiscan. Hemodynamic data: There is normal blood pressure and heart rate response to pharmacologic stress. Symptoms: The patient denied anginal chest pain. Aminophylline: None EKG: No diagnostic changes of ischemia; no ectopy. FINDINGS: Raw data: There is good myocardial uptake of radiotracer. No significant motion artifacts. Cjvz-oz-cpwmo ratio is not calculated (normal is less than 0.38 for tetrafosmin tracer). Left ventricle function: Gated images demonstrate normal left ventricular wall thickening. No segmental wall motion abnormalities. No transient ischemic dilation; TID is 1.04 (normal less than 1.3). Left ventricle resting end diastolic volume is 118 mL. Left ventricle stress ejection fraction is 74%; normal range is above 45%. Myocardial perfusion: No perfusion defects noted on the rest and stress images. There was slight hypoperfusion in the apical segment noted on prone images. This is most likely representing artifact. IMPRESSION: 1. Negative Lexiscan myocardial perfusion scan for ischemia and infarction. Dictated by: Cleve Archer M.D. on 02/09/2025 at 16:24 Approved by: Cleve Archer M.D. on 02/09/2025 at 16:26
== END ==
LOC: NUCM 13:05
PROVIDERS: PCP Internal Medicine; Referring Provider Internal Medicine; Visit Provider Internal Medicine
DX: I48.0 Paroxysmal atrial fibrillation (principal)
CPT/HCPCS: 78452; 93017; A9502; J2785